=== PATIENT | female | born 1975 | race Caucasian/White ===

== ENCOUNTER 2023-09-09 09:55 | Emergency (ER) | payer OTHER, SELFPAY ==
[2023-09-09 10:01] VITALS: BP 125/71; PULSE 71; RESP 16; TEMP 36.6; O2SAT 97; BMI 31.6
[2023-09-09 10:09] VITALS: O2SAT 98
--- NOTE | 2023-09-09 10:28 | ED.GENADUL1 ---
HPI - General Adult General Chief complaint: Allergic Reaction Stated complaint: ALLERGIES Time Seen by Provider: 09/09/23 10:18 Source: patient Mode of arrival: ambulance History of Present Illness HPI narrative: This patient's here were she describes a burning irritating type feeling in her upper airway in the evening. She says she's been going through that off-and-on for years. She attributed to possibly to the foul odor of cats underneath her house. The does have a smoke detector and he did not smell anything or determine anything and there is no other foreign body or odors in the house that he could tell. She says she went outside and when squad picked her up her symptoms went away. She did not take any steroids or Benadryl. She did not have any swelling of her lips. She had no generalized pruritus or erythema. Not had any chest pain. Related Data Home Medications Medication Instructions Recorded Confirmed fluoxetine 20 mg capsule 20 mg PO QAM 09/09/23 09/09/23 methylphenidate HCl 10 mg biphasic 10 mg PO DAILY 09/09/23 09/09/23 30-70 capsule,extended release trazodone 50 mg tablet 50 mg PO QPM 09/09/23 09/09/23 Allergies Allergy/AdvReac Type Severity Reaction Status Date / Time No Known Drug Allergies Allergy Verified 09/09/23 10:05 Exam Narrative Exam Narrative: awake alert vital signs are stable pulse oximetry is good at ninety-eight percent on room air there is no airway distress stridor coughing are all negative. On overall constipation or skin is warm and dry biopsy memories are moist and pink. She doesn't have any central cyanosis. Her voice is normal deglutition is normal there is no runny nose and cough or congestion. Her lungs are completely clear with no wheeze rales rhonchi. Upper ENT examination shows the tongue and palate the uvula. Mucous membranes the mouth and oral cavity be completely normal. He has no conjunctivitis. There is no facial swelling. No dental pain. Constitutional Vital Signs, click to edit/add: Last Vital Signs Temp 97.9 F 09/09/23 10:01 Pulse 71 09/09/23 10:01 Resp 16 09/09/23 10:01 BP 125/71 09/09/23 10:01 Pulse Ox 98 09/09/23 10:09 O2 Del Method Room Air 09/09/23 10:09 Course Vital Signs Vital signs: Vital Signs Temperature 97.9 F 09/09/23 10:01 Pulse Rate 71 09/09/23 10:01 Respiratory Rate 16 09/09/23 10:01 Blood Pressure 125/71 09/09/23 10:01 Pulse Oximetry 97 09/09/23 10:01 Oxygen Delivery Method Room Air 09/09/23 10:01 Temperature 97.9 F 09/09/23 10:01 Pulse Rate 71 09/09/23 10:01 Respiratory Rate 16 09/09/23 10:01 Blood Pressure 125/71 09/09/23 10:01 Pulse Oximetry 98 09/09/23 10:09 Oxygen Delivery Method Room Air 09/09/23 10:09 Medical Decision Making MDM Narrative Medical decision making narrative: her symptoms today are recurrent and self-limited with no other stigmata of ALLERGIC reactions. He do not have a specific explanation for her symptoms. She did ask about sleep apnea but I don't believe today's symptoms are consistent with that however she should have investigated by her primary care doctor for repeat remains a concern. Discharge Plan Discharge Chief Complaint: Allergic Reaction Clinical Impression: Airway hyperreactivity Patient Disposition: Home, Self-Care Time of Disposition Decision: 10:31 Prescriptions / Home Meds: No Action trazodone 50 mg tablet 50 mg PO QPM methylphenidate HCl 10 mg capsule, ER biphasic 30-70 10 mg PO DAILY fluoxetine 20 mg capsule 20 mg PO QAM Stand Alone Forms: Portal Instructions Referrals: Physician,Non-Staff, MD [Primary Care Provider] - 1 week
== END 2023-09-09 10:38 | disposition home or self-care (01) ==
PROVIDERS: Emergency Provider Emergency Medicine Emergency Medical Services
DX: J45.909 Unspecified asthma, uncomplicated (principal)
CPT/HCPCS: 99283

== ENCOUNTER 2023-09-26 12:06 | Emergency (ER) | payer OTHER, SELFPAY ==
[2023-09-26 12:10] VITALS: BP 132/81; PULSE 73; RESP 18; TEMP 36.7; O2SAT 100; BMI 35.6
--- OUTSIDE RECORDS SUMMARY | 2023-09-26 12:15 | XMS_ITS | CCD ---
Author Name Unknown Address [address] [place] [address] Organization [facility] Care Team Providers Care Loom Cleaner Name Role Phone ABEL HERNANDEZ Admitting Unavailable ABEL HERNANDEZ Attending Unavailable ABEL HERNANDEZ Surgeon Unavailable [facility] Procedure Practitioner Unavailab KAYLA Lanier Primary Care Unavailable KAYLA STRINGER Referring Unavailable MAGDA SIN Surgeon Unavailable NH Procedure Practitioner Unavailab Eda Garvin Unavailable JOSE GRISSOM Admitting Unavailable JOSE GRISSOM Attending Unavailable DR MARY NONE LISTED Primary Care Unavaila JOSE Graham Consulting Unavailable LUIZA MYERS Consulting Unavailable Emani Saavedra Unavailable Laine Salazar Unavailable Bunny HUTCHINSON, [facility] Primary Care Provider Allergies Allergy Classification Reported Allergen(s) Allergy Type Date of Onset Reaction(s) Facility (4 sources) diphenhydrAMINE Drug Allergy thought she was dying [employer] Other (1 source) LORazepam Drug Allergy 05-17-20 Other (See Comments) [facility] Work Phone: Medications Current Medications Medication Drug Class(es) Dates Sig (Normalized) Sig (Original) ALPRAZolam 0.25 mg oral tablet (3 sources) Benzodiazepine Start: 08-07-2023 End: 08-06-2024 take 1 tablet by mouth twice daily as needed for anxiety ALPRAZolam (XANAX) 0.25 mg tablet Indications: Adjustment disorder with anxiety Take 1 tablet (0.25 mg total) by mouth 2 (two) times a day as needed for anxiety. 10 tablet 0 08/07/2023 08/06/2024 Active amoxicillin 875 mg / clavulanate 125 mg oral tablet (1 source) Penicillin-class Antibacterial Start: 08-09-2023 take 1 tablet by mouth every twelve hours Amoxicillin-Pot Clavulanate 875-125 MG 1 tablet Orally every 12 hrs for 10 days Aug, Active cloNIDine hydrochloride 0.1 mg oral tablet (2 sources) Central alpha-2 Adrenergic Agonist cloNIDine HCl 0.1 MG Oral for 30 Days Active FLUoxetine 20 mg oral capsule (4 sources) Serotonin Reuptake Inhibitor Start: 08-07-2023 take 1 capsule by mouth in the morning FLUoxetine (PROzac) 20 mg capsule Indications: MDD (major depressive disorder), recurrent, severe, with psychosis (CMS-HCC) Take 1 capsule (20 mg total) by mouth in the morning. 90 capsule 1 08/07/2023 Active 30/70 release 24 hr methylphenidate hydrochloride 10 mg extended release oral capsule (5 sources) Central Nervous System Stimulant Start: 08-21-2023 take 1 capsule by mouth once daily methylphenidate CD (METADATE CD) 10 mg CR capsule Indications: ADHD (attention deficit hyperactivity disorder), inattentive type Take 1 capsule (10 mg total) by mouth daily. Max Daily Amount: 10 mg 30 capsule 0 08/21/2023 Active Ritalin Active traZODone hydrochloride 50 mg oral tablet (5 sources) Serotonin Reuptake Inhibitor Start: 07-11-2023 take 1 tablet by mouth once daily as needed for sleep traZODone (DESYREL) 50 mg tablet Take 1 tablet (50 mg total) by mouth nightly as needed for sleep. 90 tablet 1 07/11/2023 Active traZODone HCl Ac tive 24 hr venlafaxine 37.5 mg extended release oral capsule (7 sources) Serotonin and Norepinephrine Reuptake Inhibitor Start: 07-11-2023 take 1 capsule by mouth once daily venlafaxine XR (EFFEXOR XR) 37.5 mg 24 hr capsule Indications: Major depressive disorder, recurrent episode, moderate (CMS-HCC) Take 1 capsule (37.5 mg total) by mouth once daily. 90 capsule 1 07/11/2023 Active Effexor Active Completed/Discontinued Medications Medication Drug Class(es) Dates Sig (Normalized) Sig (Original) [id number] 200 actuat albuterol 0.09 mg/actuat metered dose inhaler (4 sources) beta2-Adrenergic Agonist Start: 08-16-2016 take 2 puff(s) by inhalation every six hours as needed Ventolin HFA 108 (90 Base) MCG/ACT 2 puffs as needed Inhalation every 6h prn Aug, Not-Taking cephalexin 500 mg oral capsule (4 sources) Cephalosporin Antibacterial Start: 12-13-2014 take 1 capsule by mouth every twelve hours Cephalexin 500 mg 1 capsule Orally Twice a day for 7 days Dec, Not-Taking fluticasone propionate 0.05 mg/actuat metered dose nasal spray (2 sources) Corticosteroid Start: 08-08-2023 take 1 spray(s) nasal route once daily Fluticasone Propionate 50 MCG/ACT 1 spray in each nostril Nasally Once a day for 14 Aug, Not-Taking LORazepam (4 sources) Benzodiazepine Ativan Not-Taking methylPREDNISolone 4 mg oral tablet (4 sources) Corticosteroid Start: 08-16-2016 Medrol 4 MG as directed Orally Aug, Not-Taking predniSONE 20 mg oral tablet (2 sources) Start: 08-08-2023 predniSONE 20 MG as directed Orally Take 3 tablets by mouth once daily for the first 3 days then 2 tablets by mouth once daily for 3 days then 1 tablet by mouth once daily for 3 days then take a half tablet by mouth once dialy for 2 days. for 11 days Aug, Not-Taking Vitamins Plus (4 sources) Vitamins Plus Not-Taking Rochepin 1 Gram (1 source) Start: 08-09-2023 Rochepin 1 Gram Aug, 1 g Problems Active Problems Problem Classification Problem Date Documented Date Episodic/Chronic Anxiety disorders (2 sources) Anxiety disorder, unspecified; Translations: [Posttraumatic stress disorder] Onset: 05-29-2020 05-29-2020 Chronic Attention-deficit, conduct, and disruptive behavior disorders (1 source) Attention deficit hyperactivity disorder, predominantly inattentive type; Translations: [Attention-deficit hyperactivity disorder, predominantly inattentive type] Onset: 07-06-2017 07-06-2017 Chronic Blindness and vision defects (1 source) Other visual disturbances; Translations: [OTHER VISUAL DISTURBANCES] Onset: 08-16-2022 Episodic E Codes: Natural/environment (1 source) Bitten by dog, initial encounter Episodic Mood disorders (1 source) Recurrent major depressive episodes, severe, with psychosis ; Translations: [Major depressive disorder, recurrent, severe with psychotic symptoms] Onset: 07-06-2017 11-26-2021 Chronic Other eye disorders (3 sources) Ocular pain, left eye; Translations: [OCULAR PAIN LEFT EYE] Onset: 08-12-2022 Episodic Other skin disorders (1 source) Rash and other nonspecific skin eruption Episodic Other upper respiratory infections (2 sources) Acute upper respiratory infection, unspecified; Translations: [Acute pharyngitis, unspecified] Episodic Otitis media and related conditions (1 source) Otitis media, unspecified, left ear; Translations: [OTITIS MEDIA UNSPECIFIED LEFT EAR] Onset: 08-16-2022 Episodic Residual codes; unclassified (1 source) Acquired absence of both cervix and uterus; Translations: [ACQUIRED ABSENCE BOTH CERVIX AND UTERUS] Onset: 08-16-2022 Episodic Schizophrenia and other psychotic disorders (1 source) Psychotic disorder; Translations: [Unspecified psychosis not due to a substance or known physiological condition] Onset: 01-06-2022 01-06-2022 Chronic Unclassified (1 source) Contact with and (suspected) exposure to covid-19; Translations: [Contact with and (suspected) exposure to covid-19] Past or Other Problems Problem Classification Problem Date Documented Da te Episodic/Chronic Adjustment disorders (1 source) Adjustment disorder with anxious mood; Translations: [Adjustment disorder with anxiety] Onset: 12-17-2019 Resolved: 02-18-2021 02-18-2021 Chronic Suicide and intentional self-inflicted injury (1 source) Suicidal thoughts; Translations: [Suicidal ideations] Onset: 01-06-2022 01-06-2022 Episodic Unclassified (3 sources) Contact with and (suspected) exposure to covid-19 Z20.822 Onset: 05-10-2022 Resolved: 05-10-2022 Unclassified (3 sources) Exposure to acute respiratory syndrome coronavirus 2; Translations: [Contact with and (suspected) exposure to covid-19] Viral infection (1 source) Disease caused by 2019-nCoV; Translations: [COVID-19] Onset: 07-16-2021 Resolved: 09-08-2021 09-08-2021 Episodic Viral infection (1 source) COVID-19 Onset: 05-10-2022 Resolved: 05-10-2022 Results Test Name Value Interpretation Reference Range Facil ity COVID + FLU Quick Testingon 12-05-2023 SARS-CoV-2 (COVID-19) RNA ANTON+probe Ql (Unsp spec) Negative [employer] Other COVID + FLU Quick Testing Negative [employer] Other Quick Strepon 08-08-2023 S. pyogenes Org specific cx Ql (Throat) Negative [employer] Other Quick Strep [employer] Other COVID Quick Testingon 2022 Result Negative [employer] Other SARS-CoV-2 (COVID-19) RNA NA A+probe Ql (Resp)on 05-12-2023 SARS-CoV-2 (COVID-19) RNA ANTON+probe Ql (Unsp spec) Negative [employer] Other CT HEAD WO CONon 08-12-2022 CT HEAD WO CON INDICATION: 47 years old; Female. [Pressure with decreased vision for 2 days. TECHNIQUE: CT Head (ax/cor/sag reformats). Ionizing radiation dose reduced via iterative reconstruction/FBP blend and body size kV/mA adjustment. Comparison: CT angiogram of the head dated 06/15/2016. FINDINGS: POSTOPERATIVE CHANGES: None. BRAIN PARENCHYMA: No hemorrhage, mass or acute infarct. Normal barrow/white differentiation. VENTRICLES/EXTRA-AXIA L SPACES: Normal for patient's age. SINUSES/MASTOIDS: The visualized sinuses are clear. Mastoid air cells are clear. MSK: No displaced or depressed calvarial fracture is noted. OTHER: No hyperdense intraluminal thrombus is seen. IMPRESSION: 1. No acute intracranial abnormality. No hemorrhage or mass effect. This study does not include the orbits. Electronically authenticated by: LUIZA MYERS Date: 2022-08-12 03:15 Normal The [facility] SARS-CoV-2 (COVID-19) RNA NA A+probe Ql (Resp)on 05-10-2022 SARS-CoV-2 (COVID-19) RNA ANTON+probe Ql (Unsp spec) Positive [employer] Other Operative Reporton 1 Operative Report MR#: [id number] S [facility] Pt. Name: Marianna Stiles Room #: 0C Discharge Date: Birthdate: 1975 OPERATIVE REPORT DATE OF SURGERY: 09/09/2020 SURGEON: Abel Hernandez M.D. PREOPERATIVE DIAGNOSIS: Carpal tunnel syndrome, right hand. POSTOPERATIVE DIAGNOSIS: Carpal tunnel syndrome, right hand. PROCEDURE: Carpal tunnel release, right hand. SURGEON: Abel Hernandez M.D. FELT HAT STEAMER: Chapito Pelayo MD ANESTHESIA: MAC. INDICATION FOR SURGERY: The patient is a 45-year-old female, whom we saw in our [facility] with complaints of night pain and numbness in her right hand. This has been a worsening problem for her despite nonoperative means of treatment. She was brought to the operating room today for that purpose. The risks and benefits were explained prior to surgery and with good understanding, it is agreed to proceed. NARRATION: The patient was brought to the operating room and placed on the table in the supine position. A tourniquet was placed around the proximal right arm. The right upper extremity was prepped and draped out in a sterile fashion. No antibiotics were utilized. To begin the procedure, after a standard time-out, she was sedated per the Anesthesia Service and the operative site was anesthetized with 1% lidocaine. The arm was exsanguinated with an Esmarch bandage and the tourniquet was inflated to 250 mmHg. Using a #15 blade, a 2.5 cm longitudinal incision was made on the palm between the thenar and hypothenar creases. As she has a thin skin lined, we incorporated into the distal end of our incision. Sharp dissection was carried out through the subcutaneous tissue. The superficial blood vessels were cauterized with the Bovie. Two Beverley rakes were used to retract the skin edges. The palmar fascia split in line with our skin incision. She has a fairly large palmaris brevis muscle that is split. This brought us down to the transverse carpal ligament. Where I could clearly see the ligament, it was opened up in a very gradual fashion using a knife blade working from distal to proximal. Switching over to a tenotomy scissor, we bluntly spread through the most distal end of the ligament until that was completely free. The proximal end was undermined and split sharply with a scissor. I could use the tip of the scissor to palpate the release to make sure that it was complete. Once satisfied with that, the median nerve was bluntly dissected out and there was no gross abnormality. The wound was irrigated with normal saline solution and the skin was closed with some 5-0 Novafil suture. A sterile dressing of Xeroform gauze, 4x4 fluffs, Kerlix, and an Levi bandage was applied. The tourniquet was released and the drapes were removed. She was brought to the recovery area in stable condition, having tolerated the procedure well. Electronically Signed by: Abel Hernandez M.D. 09/10/2020 08:11 A Abel Hernandez M.D. Date Dict: 09/09/2020/10:59 A/Abel Hernandez M.D. Date Trans: 09/09/2020 11:12 Ortega/alex [id number] cc: Kayla Stringer NAnupPAnup [address] [facility] [address] Normal The [facility] POC GLUCOSE LABon 09-09-2020 Glucose [Mass/Vol] 100 mg/dL Normal 70-100 The [facility] Comment on above: Performed By: #### [id number] #### [facility] [address] *SARS-CoV-2 COVID-19on 09-05 SARS-CoV-2 (COVID-19) RNA ANTON+probe Ql (Unsp spec) Not detected Normal Not Detected The [facility] Comment on above: Order Comment: The Aptima SARS-CoV-2 ass ay is a nucleic acid amplification test intended for the qualitative detection of RNA from SARS-CoV-2 isolated and purified from nasopharyngeal (BOILERMAKER HELPER),oropharyngeal (OP), nasal swab, sputum, and bronchoalveolar lavage (BAL) specimens from patients with signs and symptoms of infection who are suspected of COVID-19. Results are for the identification of SARS-CoV-2 RNA. The SARS-CoV-2 RNA is generally detectable during the acute phase of infection. The Aptima SARS-CoV-2 Assay on the [place] [employer] [place] [employer] system is intended for use by laboratory personnel specifically instructed and trained in the operation of the [place] [employer] [place] [employer] system. The Aptima SARS-CoV-2 assay is only for use under the Food and Drug Administration Emergency Use Authorization. Testing is limited to laboratories certified under the Clinical Laboratory Improvement Amendments of 1988 (CLIA), 42 U.S.C. ???263a, to perform high complexity tests. Not Detected: Not detected does not preclude SARS-CoV-2 infection and should not be used as the sole basis for patient management decisions. Not detected results must be combined with clinical observations, patient history, and epidemiological information. Performed By: #### 3 [id number] #### [address] [facility] Vital Signs Date Time Vital Sign Value Performing Clinician Facility 08-09-2023 15:15-0500 Body height 160.02 cm Laine Salazar Other [employer] Other 08-09-2023 15:15-0500 Body mass index (BMI) [Ratio] 31.88 kg/m2 Laine Salazar Other [employer] Other 08-09-2023 15:15-0500 Body temperature 97.5 [degF] Laine Salazar Other [employer] Other 08-09-2023 15:15-0500 Body weight 81.65 kg Laine Salazar Other [employer] Other 08-09-2023 15:15-0500 Diastolic blood pressure 76 mm[Hg] Laine Salazar Other [employer] Other 08-09-2023 15:15-0500 Respiratory rate 18 /min Laine Sternmond Other [employer] Other 08-09-2023 15:15-0500 SaO2% (BldA) [Mass fraction] 97 % Laine Salazar Other [employer] Other 08-09-2023 15:15-0500 Systolic blood pressure 120 mm[Hg] Laine Salazar Other [employer] Other 08-08-2023 11:50-0500 Body height 160.02 cm Emani Keri Other [employer] Other 08-08-2023 11:50-0500 Body mass index (BMI) [Ratio] 32.27 kg/m2 Emani Keri Other [employer] Other 08-08-2023 11:50-0500 Body temperature 98.1 [degF] Emani Keri Other [employer] Other 08-08-2023 11:50-0500 Body weight 82.65 kg Emani Keri Other [employer] Other 08-08-2023 11:50-0500 Respiratory rate 18 /min Emani Keri Other [employer] Other 08-08-2023 11:50-0500 SaO2% (BldA) [Mass fraction] 99 % Emani Keri Other [employer] Other 05-12-2023 15:40-0400 Body height 160.02 cm Eda Law Other [employer] Other 05-12-2023 15:40-0400 Body mass index (BMI) [Ratio] 34.18 kg/m2 Eda Law Other [employer] Other 05-12-2023 15:40-0400 Body temperature 98.2 [degF] Eda Law Other [employer] Other 05-12-2023 15:40-0400 Body weight 87.54 kg Eda Law Other [employer] Other 05-12-2023 15:40-0400 Diastolic blood pressure 65 mm[Hg] Eda Law Other [employer] Other 05-12-2023 15:40-0400 Respiratory rate 18 /min Eda Law Other [employer] Other 05-12-2023 15:40-0400 SaO2% (BldA) [Mass fraction] 98 % Eda Law Other [employer] Other 05-12-2023 15:40-0400 Systolic blood pressure 119 mm[Hg] Eda Law Other [employer] Other 05-10-2022 13:40-0400 Body height 160.02 cm Eda Law Other [employer] Other 05-10-2022 13:40-0400 Body mass index (BMI) [Ratio] 30.11 kg/m2 Eda Law Other [employer] Other 05-10-2022 13:40-0400 Body temperature 98.9 [degF] Eda Law Other [employer] Other 05-10-2022 13:40-0400 Body weight 77.11 kg Eda Law Other [employer] Other 05-10-2022 13:40-0400 Respiratory rate 18 /min Eda Law Other [employer] Other 05-10-2022 13:40-0400 SaO2% (BldA) [Mass fraction] 96 % Eda Law Other [employer] Other Encounters Encounter Date Encounter Type Care Provider Facility Start: 09-19-2023 Telephone encounter Orders Sup port User Transcribe [facility] Division of [facility] - Sleep Disorders Comment on above: Sleep Lab (LISA Oshea) Start: 08-09-2023 End: 08-09-2023 ambulatory Laine Marie Other [employer] Other Start: 08-09-2023 Office outpatient vi sit 15 minutes Laine Marie [facility] Start: 08-08-2023 End: 08-08-2023 ambulatory Emani Keri Other [employer] Other Start: 08-08-2023 Office outpatient vi sit 15 minutes Emani Keri [facility] Start: 05-12-2023 End: 05-12-2023 ambulatory Eda Law Other [employer] Other Start: 05-12-2023 Office outpatient vi sit 25 minutes Eda Thanh [facility] Start: 08-12-2022 End: 08-12-2022 ambulatory JOSEDAHLIA GRISSOM Facility:[facility] Start: 05-10-2022 End: 05-10-2022 ambulatory Eda Law Other [employer] Other Start: 05-10-2022 Office outpatient vi sit 25 minutes Eda Thanh [facility] Start: 09-09-2020 End: 09-10-2020 ambulatory ABEL SKIE Facility:[facility] Procedures Date Procedure Procedure Detail Performing Clinician Start: 09-09-2020 ANESTH LOWER ARM SURGERY MAGDA ALTENHOF Start: 09-09-2020 Neuroplasty &/transp os median nrv carpal nery HERNANDEZ Plan of Treatment Date Care Activity Detail Author Start: 04-22-2024 Adult BMI Screening Adult BMI Screening [facility] Start: 04-22-2024 Tobacco Screening Tobacco Screening [facility] Start: 05-05-2023 Influenza vaccination Influenza Vaccine [facility] Start: 2023 Administration of varicella zoster vaccine Zoster (Shingles) Vaccine (1 of 2) [facility] Start: 1992 DTaP,Tdap and Td Vaccines (1 - Tdap) DTaP,Tdap and Td Vaccines (1 - Tdap) [facility] Start: 1991 Adult BMI Follow Up Plan Adult BMI Follow Up Plan [facility] Start: 1985 Depression Screening Depression Screening [facility] Immunizations Immunization Date Immunization Notes Care Provider Fa cili 06-13-2019 influenza virus vaccine, unspecified formulation Orders Transcribe [facility] 12-13-2014 tetanus toxoid, reduced diphtheria toxoid, and acellular pertussis vaccine, adsorbed Eda Law Other [employer] Other Payers Date Payer Category Payer Private Health Insurance AECHARISSE LONGORIA POS II [id number] 2015-Present [phone] [address] [place] [address] [id number] 2006 Private Health Insurance [id number] 1975 Unknown [id number] 1975 Unknown [id number] 1961 Private Health Insurance [id number] Social History Date Type Detail Facility Start: 09-15-2020 End: 04-22-2023 Sex Assigned At [employer] Other Start: 03-17-2018 Tobacco smoking status NHIS Ex-smoker [facility] History of tobacco use Current smoker [facility] Start: 03-17-2018 Tobacco use and exposure Smokeless tobacco non-user [facility] Start: 04-22-2023 Alcohol intake Ex-drinker (finding) [facility] Start: 09-15-2020 End: 04-22-2023 History of Social function [facility] Housing Instability Unknown [facility] Start: 03-17-2018 Tobacco Comment [facility] Start: 03-17-2018 Alcohol Comment [facility] Start: 1975 Sex Assigned At Female [facility] Start: 05-29-2020 Gender identity Identifies as female gender (finding) [facility] Start: 05-29-2020 Sexual orientation Heterosexual (finding) [facility] Note 09-19-2023 Telephone Encounter - Carole Amado - 09/19/2023 4:33 PM EST Note Date & Type Note Facility 09-19-2023 Miscellaneous Notes Formattin g of this note might be different from the original. 09/19 pt's called to schedule Advised we do not have order or notes. Gave him our fax number. documented in this encounter [facility] Telephone encounter Note 09-19-2023 Telephone Encounter - Carole Amado - 09/19/2023 4:33 PM EST Note Date & Type Note Facility 09-19-2023 Telephone encount er Note 09/19 pt's called to schedule Advised we do not have order or notes. Gave him our fax number. [facility] Evaluation note 08-09-2023 Note Date & Type Note Facility 08-09-2023 Evaluation note Encounter Date Diagnosis Assessment Notes Aug, Dog bite, initial encounter (ICD-10 - W54.0XXA) Dog bite home care material was printed Drink plenty fluids, get plenty of rest. Keep the wound clean and dry. Apply antibiotic ointment to the wound daily. Apply a dressing or Band-Aid to the wound daily. Take the amoxicillin with clavulanate as prescribed until gone starting tomorrow. Take Tylenol or Motrin as needed for aches pains or fevers. Go to the ER for worsening symptoms or concerns. Patient verbalizes great concern over possible development of sepsis. She states her younger brother of sepsis at 30 years old. Patient will be given an injection of Rocephin today and then started on amoxicillin tomorrow with instructions to follow-up for any further concerns. [employer] Other Evaluation note 08-08-2023 Note Date & Type Note Facility 08-08-2023 Evaluation note Encounter Date Diagnosis Assessment Notes Aug, Suspected COVID-19 virus infection (ICD-10 - Z20.822) Aug, Viral upper respiratory illness (ICD-10 - J06.9) You wer eseen here today for your complaints of cough, congestion, headache, sore throat, runny nose and body aches. You denies fevers, chills, nausea, vomitng or diarrhea. You were tested for covid, flu and strep. Your tests were all negative, Your illness is not suspected to be bacterial. You do not need antibiotics at this time. You are being prescribed flonase nasal spray to use as directed fo rhte next 2 weeks. You reports dry, cracked, itching feet of chronic nature that requires steroids at times. You are requesting a steroid for the rash on your feet. You are being prescribed a steroid medication fo rthe rash, you will need to take it as directed. You need to follow up with your primary care provider or hooker laster as discussed for your feet. Aug, Sore throat (ICD-10 - J02.9) Aug, Rash of both feet (ICD-10 - R21) [employer] Other Evaluation note 05-12-2023 Note Date & Type Note Facility 05-12-2023 Evaluation note Encounter Date Diagnosis Assessment Notes May, Exposure to COVID-19 virus (ICD-10 - Z20.822) Advised patient that COVID PCR test was negative today. Because positive at home, advised that this could change. Encouraged use of at home test in 24 hours. Recommend patient to stay home until fever free for 24 hours. Supportive care as directed, increase fluids and rest, Tylenol/Motrin as directed, OTC cough/cold remedies as directed on packaging, cool mist humidifier, throat lozenges. Discussed infection control practices such as good hand washing and mask wearing. Patient to follow up with PCP if symptoms persist or worsen despite treatment. Immediate eval for SOB, difficulty breathing, chest pain, fevers that do not break with antipyretic or any other concerning symptoms as reviewed on patient education handout. Patient verbalizes understanding and is agreeable to treatment plan. Patient left in stable condition [facility] [employer] Other Evaluation note 05-10-2022 Note Date & Type Note Facility 05-10-2022 Evaluation note Encounter Date Diagnosis Assessment Notes May, Contact with and (suspected) exposure to covid-19 (ICD-10 - Z20.822) May, COVID-19 (ICD-10 - U07.1) COVID PCR test performed in office today. Advised patient that test was positive. Instructed patient to isolate per CDC guidelines for 5 days from symptom onset, mask 5 days following. May return to work/activities outside home after isolation period as long as symptoms are improving and has been afebrile for 24 hours without use of antipyretic. Advised patient that treatment of COVID is with viral supportive care, OTC cold medications as directed, Tylenol/Motrin as needed for body aches/fever. Increase fluids and rest. Encouraged use of cool mist humidifier. Follow-up with PCP to advise of positive result and further management. Immediate eval for SOB, difficulty, chest pain, fevers that do not break with antipyretic or any other concerning symptoms as reviewed on patient education handout. Patient verbalizes understanding and is agreeable to treatment plan. Patient left in stable condition [facility] [employer] Other History general Narrative - Reported Note Date & Type Note Facility History general Narrative - Reported Type Medical History Anxiety and depression Medical History adhd Surgical History hysterectomy Hospitalization History see above surgical histo ry [facility] [employer] Other Instructions Note Date & Type Note Facility Instructions Not on filedocumented in this en counter [facility] Summary Purpose Family History No Family History Records FoundNo Family History Records Found Advance Directives No Advanced Directives Records FoundNo Advanced Directives Records Found Additional Source Comments INFORMATION SOURCE (unrecogn ized section and content) DATE CREATED AUTHOR 08/27/2021 [facility] DATE CREATED AUTHOR AUTHOR'S ORGANIZ ATION 08/16/2022 [facility] REASON FOR VISIT (unrecogniz ed section and content) Reason Onset Date Comments Sleep Lab 09/19/2023 SCHEDULING Care Teams (unrecognized sec tion and content) Loom Cleaner Relationship Specialty Start Date End Date Shaikh Hollis MD [address] [place] [address] PCP - General Internal Medicine 08/11/22 FOR RECORDS PERTAINING TO PATIENTS WHO ARE OR HAVE BEEN ENROLLED IN A CHEMICAL DEPENDENCY/SUBSTANCEABUSE PROGRAM, SOME INFORMATION MAY BE OMITTED. This clinical summary was aggregated from multiple sources. Caution should be exercised in using it in the provision of clinical care. This summary normalizes information from multiple sources, and as a consequence, information in this document may materially change the coding, format and clinical context of patient data. In addition, data may be omitted in some cases. CLINICAL DECISIONS SHOULD BE BASED ON THE PRIMARY CLINICAL RECORDS. [employer] [facility]. provides no warranty or guarantee of the accuracy or completeness of information in this document.
--- NOTE | 2023-09-26 12:54 | CT_ITS ---
The [address] [address] Patient Name: BILLY GIBSON MRN: [id number] date: 1975 Sex: F Assigned Patient Location: ER Current Patient Location: .[facility] Accession/Order Number: [id number] Exam Date: 09/26/2023 13:15 Report Date: 09/26/2023 14:01 At the request of: ELEN JOHNSON Procedure: CT facial bones w con CT FACE WITH CONTRAST: 09/26/2023 1:15 PM EST Clinical Data: left facial pain.. Left eye pain. Visual trouble in left thigh. Comparison: No previous Contrast enhanced helically acquired data. No acute fracture or dislocation. No air-fluid levels in the paranasal sinuses. Moderate mucosal disease in the nares, left greater than right. Areas of modest mucosal thickening in the ethmoids. No mastoid effusion. No soft tissue prominence or fluid collection in the left malar or periorbital regions. The orbital globes appear symmetric and unremarkable. Lacrimal glands are symmetric and unremarkable. No extraconal mass. The muscle cones are symmetric and unremarkable. There is no intraconal mass. The intraorbital optic nerves and their sheaths are unremarkable. The orbital vasculature appears symmetric. No distinct evidence of a sellar or suprasellar mass. The cavernous sinuses appear symmetric. The other included intracranial contents appear grossly unremarkable at helical acquisition. There is artifact from dental hardware. No moderate or significant periodontal disease. No fluid collections buccal or lingual to the maxillary alveolar ridge or the mandible. No odontogenic phlegmonous cellulitis is apparent. The IJVs remain patent. Carotid bifurcations are patent. CT/CT facial bones w con IMPRESSION: 1. Some mucosal disease in the nasal cavity and ethmoids. All CT scans at this facility use dose modulation, iterative reconstruction, and/or weight based dosing when appropriate to reduce radiation dose to as low as reasonably achievable. Electronically authenticated by: CAMERON RIOS Date: 09/26/2023 14:01
--- NOTE | 2023-09-26 12:56 | ED_ITS ---
HPI - General Adult General Chief complaint: Extremity Problem, Nontraumatic Stated complaint: LEFT FACE PAIN/CAN'T SEE Time Seen by Provider: 09/26/23 12:11 Source: patient Mode of arrival: walk-in Limitations: no limitations History of Present Illness HPI narrative: Patient presents with left facial and left eye pain. She said that 4 days ago she developed pain along the left nostril - burning and had associated nasal congestion. The pain then migrated into the left orbit and the left upper cheek and lower forehead. She denied any associated dental pain. She said that her vision in the left eye became blurred - she wears eye glasses and has not called Dr Pizarro's office regarding her visual changes. She had some left over prednisone, Flonase and zithromax that she started taking 2 days ago. No improvement so she had her friend give her a ride to the ED for evaluation. Related Data Home Medications Medication Instructions Recorded Confirmed fluoxetine 20 mg capsule 20 mg PO QAM 09/09/23 09/26/23 methylphenidate HCl 10 mg biphasic 10 mg PO DAILY 09/09/23 09/26/23 30-70 capsule,extended release trazodone 50 mg tablet 50 mg PO QPM 09/09/23 09/26/23 alprazolam 0.25 mg tablet 0.25 mg PO DAILY PRN anxiety 09/26/23 09/26/23 venlafaxine 37.5 mg 37.5 mg PO .daily 09/26/23 09/26/23 capsule,extended release 24 hr Previous Rx's Medication Instructions Recorded doxycycline hyclate 100 mg capsule 100 mg PO BID 10 days #20 caps 09/26/23 ketorolac 10 mg tablet 10 mg PO Q8H PRN pain #14 tabs 09/26/23 tobramycin 0.3 % eye drops 1 drp ophthalmic (eye) TID 7 days 09/26/23 #5 mL Allergies Allergy/AdvReac Type Severity Reaction Status Date / Time No Known Drug Allergies Allergy Verified 09/09/23 10:05 [facility] Social History Smoking status: Current every day smoker Exam Narrative Exam Narrative: Nurses notes and vital signs reviewed and patient is not hypoxic. afebrile General: Well-appearing and in no apparent distress. Skin: Warm, dry, no pallor noted. No facial rash. Head: Normocephalic, atraumatic. Neck: Supple, non-tender. No cervical lymphadenopathy. Eye: Pupils are equal, round and EOMI. No scleral icterus. No conjunctivitis to either eye. Left eye with normal EOM, intact pupillary changes and accomm odation, no blepharitis or discharge. Ears, Nose, Mouth, and Throat: EACs are clear, right TM normal, left TM slightly bulging with erythema but no injection, no posterior oropharynx erythema or nasal mucosal hypertrophy, uvula is mid-line. Oral mucosa is moist. No facial asymmetry, swelling, erythema or abscess noted. She is markedly tender throughout the left forehead, orbit and upper cheek but no periorbital or orbital cellulitis is noted. Cardiovascular: Regular Rate and Rhythm without murmur, gallop or rub. Respiratory: No accessory muscle use or respiratory distress. Lungs are clear to auscultation, no wheezing, rales or rhonchi Musculoskeletal: normal ROM, no calf or popliteal tenderness, no lower extremity edema/swelling GI: Abdomen is soft, non-distended. Normal bowel sounds. No masses appreciated. No tenderness to palpation. No rebound, guarding, or rigidity noted. Neurological: A&O x4. No cranial nerve dysfunction observed. No truncal ataxia. Moves all extremities. Sensation intact. Psychiatric: Cooperative and interactive. Normal mood and affect. Constitutional Vital Signs, click to edit/add: Last Vital Signs Temp 98.1 F 09/26/23 12:10 Pulse 73 09/26/23 12:10 Resp 18 09/26/23 12:10 BP 132/81 09/26/23 12:10 Pulse Ox 100 09/26/23 12:10 Course Vital Signs Vital signs: Vital Signs Temperature 98.1 F 09/26/23 12:10 Pulse Rate 73 09/26/23 12:10 Respiratory Rate 18 09/26/23 12:10 Blood Pressure 132/81 09/26/23 12:10 Pulse Oximetry 100 09/26/23 12:10 Temperature 98.1 F 09/26/23 12:10 Pulse Rate 73 09/26/23 12:10 Respiratory Rate 18 09/26/23 12:10 Blood Pressure 132/81 09/26/23 12:10 Pulse Oximetry 100 09/26/23 12:10 Medical Decision Making MDM Narrative Medical decision making narrative: tetracaine applied to the patient's left eye. Peripheral IV established and blood drawn and sent for testing. CT facial bones with IVC obtained. She was given IV Toradol. Normal CBC and normal BMP. CT facial = left sinus changes only, no other w orrisome pathology. Patient informed of findings with on the phone at her request. We discussed diagnosis and plane for treatment. Patient discharged home with prescriptions for doxycycline, toradol and tobramycin ophth drops. PCP follow up and follow up with eye physician recommended. . Lab Data Lab results reviewed: Yes I reviewed the patient's lab results Labs: Lab Results 09/26/23 Range/Units 13:13 WBC 5.9 (4.0-11.0) 10^3/uL RBC 4.72 (4.20-5.40) 10^6/uL Hgb 13.7 (12.0-16.0) g/dL Hct 41.9 (36.0-48.0) % MCV 88.8 (81.0-99.0) fL MCH 29.0 (26.7-34.0) pg MCHC 32.7 (29.9-35.2) g/dL RDW 12.7 (11.0-15.0) % Plt Count 279 (150-450) 10^3/uL MPV 10.1 (9.5-13.5) fL Neut % (Auto) 56.6 (43.0-75.0) % Lymph % (Auto) 30.9 (20.5-60.0) % [place] % (Auto) 8.4 (1.7-12.0) % Eos % (Auto) 3.2 (0.9-7.0) % Baso % (Auto) 0.7 (0.2-2.0) % Neut # (Auto) 3.4 (1.4-6.5) 10^3/uL Lymph # (Auto) 1.8 (1.2-3.8) 10^3/uL [place] # (Auto) 0.5 (0.3-0.8) 10^3/uL Eos # (Auto) 0.2 (0.0-0.7) 10^3/uL Baso # (Auto) 0.0 (0.0-0.1) 10^3/uL Abs Immat Gran (auto) 0.01 (0.00-0.03) 10^3/uL Imm/Tot Granulo (auto) 0.2 (0.0-0.5) % Sodium 141 (136-145) mmol/L Potassium 4.0 (3.5-5.1) mmol/L Chloride 104 (98-107) mmol/L Carbon Dioxide 29.7 (21.0-32.0) mmol/L Anion Gap 11.3 BUN 13.0 (7.0-18.0) mg/dL Creatinine 0.90 (0.55-1.02) mg/dL Est GFR ( Amer) >60 (>=60) Est GFR (Non-Af Amer) >60 (>=60) BUN/Creatinine Ratio 14.4 Glucose 88 (74-106) mg/dL Calcium 8.8 (8.5-10.1) mg/dL Imaging Data ct facial: Radiologist's impression: ITS Impressions Facial Bones CT 09/26/23 12:54 IMPRESSION: 1. Some mucosal disease in the nasal cavity and ethmoids. All CT scans at this facility use dose modulation, iterative reconstruction, and/or weight based dosing when appropriate to reduce radiation dose to as low as reasonably achievable. Electronically authenticated by: CAMERON RIOS Date: 09/26/2023 14:01 Discharge Plan Discharge Chief Complaint: Extremity Problem, Nontraumatic Clinical Impression: Iritis, Sinusitis Patient Disposition: Home, Self-Care Time of Disposition Decision: 14:12 Prescriptions / Home Meds: New doxycycline hyclate 100 mg capsule 100 mg PO BID 10 Days Qty: 20 0RF ketorolac 10 mg tablet 10 mg PO Q8H PRN (Reason: pain) Qty: 14 0RF tobramycin 0.3 % drops 1 drp ophthalmic (eye) TID 7 Days Qty: 5 0RF Rx Instructions: left eye No Action trazodone 50 mg tablet 50 mg PO QPM methylphenidate HCl 10 mg capsule, ER biphasic 30-70 10 mg PO DAILY fluoxetine 20 mg capsule 20 mg PO QAM venlafaxine 37.5 mg capsule,extended release 24hr 37.5 mg PO .daily alprazolam 0.25 mg tablet 0.25 mg PO DAILY PRN (Reason: anxiety) Instructions: Sinusitis (ED), Iritis (ED) Stand Alone Forms: Portal Instructions Referrals: [facility] [Primary Care Provider] - 1 week CLAUDINE PIZARRO [Physician] - As soon as possible
[2023-09-26] MEDS: TETRACAINE HCL 0.5% OP SOL 80 DROP/4 ML BOTTLE OP (13:18)
[2023-09-26] MEDS: KETOROLAC TROMETHAMINE 30 MG/ML VIAL IVP (13:19)
[2023-09-26 13:26] LABS: Basophils Percent Auto 0.7 % (0.2-2.0); Eosinophils Absolute Auto 0.2 10^3/uL (0.0-0.7); Eosinophils Percent Auto 3.2 % (0.9-7.0); Hematocrit 41.9 % (36.0-48.0); Hemoglobin 13.7 g/dL (12.0-16.0); Immature Granulocytes Abs Auto 0.01 10^3/uL (0.00-0.03); Immature Granulocytes Pct Auto 0.2 % (0.0-0.5); Lymphocytes Absolute Auto 1.8 10^3/uL (1.2-3.8); Lymphocytes Percent Auto 30.9 % (20.5-60.0); Mean Corpuscular HGB Conc 32.7 g/dL (29.9-35.2); Mean Corpuscular Volume 88.8 fL (81.0-99.0); Mean Platelet Volume 10.1 fL (9.5-13.5); Monocytes Absolute Auto 0.5 10^3/uL (0.3-0.8); Monocytes Percent Auto 8.4 % (1.7-12.0); Neutrophils Absolute Auto 3.4 10^3/uL (1.4-6.5); Neutrophils Percent Auto 56.6 % (43.0-75.0); Platelet Count 279 10^3/uL (150-450); Red Blood Count 4.72 10^6/uL (4.20-5.40); Red Cell Distribution Width 12.7 % (11.0-15.0); White Blood Count 5.9 10^3/uL (4.0-11.0)
[2023-09-26 13:33] LABS: Anion Gap 11.3; BUN Creatinine Ratio 14.4; Calcium 8.8 mg/dL (8.5-10.1); Carbon Dioxide 29.7 mmol/L (21.0-32.0); Chloride 104 mmol/L (98-107); Estimated GFR (African America >60 (>=60); Estimated GFR (Non-African Ame >60 (>=60); Glucose 88 mg/dL (74-106); Sodium 141 mmol/L (136-145)
== END 2023-09-26 14:28 | disposition home or self-care (01) ==
PROVIDERS: Emergency Provider Emergency Medicine
DX: H20.9 Unspecified iridocyclitis (principal); J32.9 Chronic sinusitis, unspecified; Z79.899 Other long term (current) drug therapy; F17.210 Nicotine dependence, cigarettes, uncomplicated
CPT/HCPCS: 36415; 70487; 80048; 85025; 96374; 99285; J1885; Q9967

== ENCOUNTER 2025-05-13 19:17 | Emergency (ER) | payer OTHER, SELFPAY ==
--- OUTSIDE RECORDS SUMMARY | 2024-01-22 10:30 | XMS_ITS ---
Author Organization [facility] vices Address [address] [place], [place] [id number] Care Team Providers Care Injection Moulding Machine Operator Name Role Phone Milana Sandhu Primary Care Provider [phone] Tabatha Gonzalez Unavailable [phone] REASON FOR VISIT f/u Medications Medication SIG (Take, Route, Frequency, Duration) Notes Start Date End Date Status PROzac 20 MG 1 capsule Orally Once a day Active Fluticasone Propionate 50 MCG/ACT 1 spray in each nostril Nasal Once a day; Duration: 30 days Not-Taking Vitamin D not sure of OTC dose Active cloNIDine HCl 0.1 MG 1 tablet Orally Once a day Active Methylphenidate HCl ER (CD) 10 MG 2 capsules before breakfast in the morning Oral Once a day; Duration: 30 days Active Social History Sex Assigned At : Social History Observation Description Sex Assigned At Female Encounters Encounter Location Date Provider Diagnosis Main [address] [place], [place] [id number] 01/22/2024 Tabatha Gonzalez Plan Of Treatment No Information Progress Notes * Marianna STILES LDOB:[birth year] (50 yo F)Acc No.[id number]:01/22/2024 Medical Note Patient: Marianna WAGONER Provider: Adwoa Gonzalez MD :1975 A ge:48 Y S ex:Female Date:01/22/2024 Address:[address] [place] [address], [address], [id number] Pcp:Milana Sandhu Subjective: * Chief Complaints: * 1 . F/u. * Medical History: * Medications: T aking Vitamin D , Notes to Pharmacist: not sure of OTC dose, Taking cloNIDine HCl 0.1 MG Tablet 1 tablet Orally Once a day , Taking Methylphenidate HCl ER (CD) 10 MG Capsule Extended Release 2 capsules before breakfast in the morning Oral Once a day , Taking PROzac 20 MG Capsule 1 capsule Orally Once a day , Not-Taking/PRN Fluticasone Propionate 50 MCG/ACT Suspension 1 spray in each nostril Nasal Once a day Objective: * Vitals: Assessment: Plan: * Treatment: * Billing Information: * Visit Code: * Procedure Codes: * Electronic signature of Franklin Gonzalez MD on 05/13/2025 at 07:24 PM EDT Sign off status: Pending * Provider: Adwoa Gonzalez MD Date: 0 01/22/2024 Generated for Monica lambert/Angel/Jesenia on: 0 05/13/2025 07:24 PM EDT
--- OUTSIDE RECORDS SUMMARY | 2024-05-13 09:45 | XMS_ITS ---
Author Organization [facility] Address [address] [place], [place] [id number] Care Team Providers Care Car Dropper Name Role Phone Milana Sandhu Primary Care Provider Tabatha Gonzalez Unavailable [phone] REASON FOR VISIT discuss labs results Medications Medication SIG (Take, Route, Frequency, Duration) Notes Start Date End Date Status Vitamin D 25 MCG (1000 UT) 1 tablet Orally Once a day not sure of OTC dose Active ALPRAZolam 0.25 MG take 1 tablet by mouth twice a day if needed for anxiety Oral; Duration: 5 Days Active Pristiq 100 MG 1 tablet Orally Once a day Active Fluticasone Propionate 50 MCG/ACT 1 spray in each nostril Nasal Once a day; Duration: 30 days Not-Taking Social History Sex Assigned At : Social History Observation Description Sex Assigned At Female Encounters Encounter Location Date Provider Diagnosis Main [address] [place] [id number] 05/13/2024 Tabatha Gonzalez Plan Of Treatment No Information Progress Notes * Marianna STILES LDOB:[birth year] (50 yo F)Acc No.[id number]:05/13/2024 Medical Note Patient: Marianna WAGONER Provider: Adwoa Gonzalez MD :1975 A ge:49 Y S ex:Female Date:05/13/2024 Address:[address] [place] [address], [address], [id number] Pcp:Milana Sandhu Subjective: * Chief Complaints: * 1 . Discuss labs results. * Medical History: * Medications: T aking Pristiq 100 MG Tablet Extended Release 24 Hour 1 tablet Orally Once a day , Taking Vitamin D 25 MCG (1000 UT) Tablet 1 tablet Orally Once a day , Notes to Pharmacist: not sure of OTC dose, Taking ALPRAZolam 0.25 MG Tablet take 1 tablet by mouth twice a day if needed for anxiety Oral , Not-Taking/PRN Fluticasone Propionate 50 MCG/ACT Suspension 1 spray in each nostril Nasal Once a day Objective: * Vitals: Assessment: Plan: * Treatment: * Billing Information: * Visit Code: * Procedure Codes: * Electronic signature of Franklin Gonzalez MD on 05/13/2025 at 07:25 PM EDT Sign off status: Pending * Provider: Adwoa Gonzalez MD Date: 05/13/2024 Generated for Monica lambert/Angel/Jesenia on: 05/13/2025 07:25 PM EDT
--- OUTSIDE RECORDS SUMMARY | 2024-09-20 04:15 | XMS_ITS ---
Author Organization [facility] vices Address [address] [place], [place] [id number] Care Team Providers Care Glass Bulb Machine Adjuster Name Role Phone Milana Sandhu Primary Care Provider [phone] Esequiel Ernst [phone] REASON FOR VISIT tremors all over body Social History Sex Assigned At : Social History Observation Description Sex Assigned At Female Encounters Encounter Location Date Provider Diagnosis Main [address] [place] [id number] 09/20/2024 Esequiel Ernst Plan Of Treatment No Information Progress Notes * Marianna STILES LDOB:[birth year] (50 yo F)Acc No.[id number]:09/20/2024 Patient: Marianna WAGONER Provider: Kayla Ernst :1975 A ge:49 Y S ex:Female Date:09/20/2024 Address:[address] [place] [address], [address], [id number] Pcp:Milana Sandhu Subjective: * Chief Complaints: * 1 . Tremors all over body. * Medical History: Objective: * Vitals: Assessment: Plan: * Treatment: * Billing Information: * Visit Code: * Procedure Codes: * Electronic signature of IGOR Segundo on 05/13/2025 at 07:24 PM EDT Sign off status: Pending * Provider: Kayla Ernst Date: 0 09/20/2024 Generated for Monica lambert/Angel/Jesenia on: 0 05/13/2025 07:24 PM EDT
[2025-05-13] VITALS (10 sets, daily range): BP systolic 110–123; BP diastolic 62–70; PULSE 64–73; TEMP 36.7–37; O2SAT 97–100; BMI 33.7
--- OUTSIDE RECORDS SUMMARY | 2025-05-13 19:23 | XMS_ITS | Clinical Summary ---
Author Organization [facility] Address [address] [place] [address] Care Team Providers Care Project Facilitator Name Role Phone Unavailable Primary Care Provider Unavailabl e Allergies No known active allergies Medications traZODone (Desyrel) 50 MG tablet Take 50 mg by mouth Daily 1/2 tab Active FLUoxetine (PROzac) 20 MG capsule Take 20 mg by mouth Daily 1 capsule Active estradiol (Climara) 0.025 MG/24HRIndicati ons:Menopause,V asomotor symptoms due to menopause Place 1 patch over 7 days on the skin 1 (one) time per week 12 patch 3 12/09/2024 Active Active Problems Problem Noted Date Diagnosed Date Memory change 12/28/2023 Paresthesia 12/28/2023 Social History Tobacco Use Types Packs/Day Years Used Date Smoking Tobacco: Never Assessed Comments Unknown Sex and Gender Information Value Date Recorded Sex Assigned at Not on file Legal Sex Female 7:12 PM EDT Gender Identity Not on file Sexual Orientation Not on file Last Filed Vital Signs Vital Sign Reading Time Taken Comments Blood Pressure 116/84 12/09/2024 1:08 PM EDT Pulse 76 11/23/2023 5:59 AM EDT Temperature 35.9 C (96.6 F) 11/23/2023 5:59 AM EDT Respiratory Rate 16 11/23/2023 5:59 AM EDT Oxygen Saturation 100% 11/23/2023 5:59 AM EDT Inhaled Oxygen Concentration - - Weight 86.9 kg (191 lb 8 oz) 12/09/2024 1:08 PM EDT Height 163.2 cm (5' 4.25 ) 01/07/2023 12:00 PM E DT Body Mass Index 32.62 01/07/2023 12:00 PM EDT Plan of Treatment Not on file Insurance [address] [place] [address] [employer]
--- OUTSIDE RECORDS SUMMARY | 2025-05-13 19:23 | XMS_ITS | Patient Health Record ---
Author Organization [facility] [place] Address [address] [place] [address] Care Team Providers Care Inventory Control Associate Name Role Phone Syeda Everett Primary Care Provider [phone] Reason For Referral No Information Medications Medication SIG (Take, Route, Fr equency, Duration) Notes Start Date End Date Status LamISIL 250 MG 1 tablet Orally Once a day for 30 days 06/13/2019 Active predniSONE 20 MG 1 tablet Orally BID for 7 days Active Prozac 40 mg 1 tablet Oral Daily Active Ritalin 10 MG 1 tablet Orally Once Active traZODone HCl 50 MG 1 tablet at bedtime Orally Once a day Active Immunizations Vaccine Route Administration Date Status Comme nts Flu, Flucelvax (84252) 4 yrs and older, single-dose syringe (7372-8922) IM Intramuscular 06/13/2019 Administered Social History Tobacco Use: Social History Observation Description Date Details (start date - stop date) Never Smoker NA - NA Tobacco Use/Smoking Question Answer Notes Patient is a nonsmoker Alcohol Screen (Audit-C) Question Answer Notes Did you have a drink containing alcohol in the p ast year? No Points 0 Interpretation Negative Problems Problem Type SNOMED Code ICD Code Onset Dates Problem Status W/U Status Risk Notes Problem Chronic fatigue syndrome (92022996) Chronic fatigue (R53.82) Active confirmed Problem 71708203 Dysphagia, unspecified type (R13.10) Active confirmed Problem 039894938 Anxiety with depression (F41.8) Active confirmed Problem 7576496 Thyromegaly (E01.0) Active confirmed Plan Of Treatment No Information Insurance Providers Payer Name Payer Address Payer Phone Subscriber Number Group Number Insured Name Patient Relationship to Insured Coverage Start Date Coverage End Date [employer] [place] [address] [place] [address] [id number] Juan Stiles Spouse - patient is the spouse of the insured 9 Medical (General) History Medical History History ICD Code Anxiety/depression Insomnia Chronic foot rash (since 2008) Surgical History Surgery Date(Month/Year) hysterectomy
--- OUTSIDE RECORDS SUMMARY | 2025-05-13 19:24 | XMS_ITS | Encounter Summary ---
Author Organization [facility] Address [id number] [address] [place] [address] Care Team Providers Care Cementer Hand Name Role Phone Camille Corley APRN-EMPLOYMENT LAW SPECIALIST Primary Care Provi estefani Encounter Details Date Type Department Care Team (Late st Contact Info) Description 02/12/2025 Orders Only [facility] [address] [place] [address] [place] [phone] Julia Carrizales CMA Social History Tobacco Use Types Packs/Day Years Used Date Smoking Tobacco: Former Cigarettes 0.5 19.7 1 989 - 2005 Smokeless Tobacco: Never Comments:chews nicotine gum Alcohol Use Standard Drinks/Week Comments Not Currently 0 (1 standard drink = 0.6 oz pur e alcohol) occasionally Overall Financial Resource Strain (CARDIA) Answe r Date Recorded How hard is it for you to pa y for the very basics like food, housing, medical care, and heating? Not hard at all 11/19/2024 PHQ-2 Answer Date Recorded Total Score 15 02/12/2025 PRAPARE - Transportation Answer Date Re corded In the past 12 months, has l ack of transportation kept you from medical appointments or from getting medications? No 11/02 In the past 12 months, has l ack of transportation kept you from meetings, work, or from getting things needed for daily living? No 11/19/2024 Housing Instability Answer Date Recorde d Are you worried or concerned that in the next two months you may not have stable housing that you own, rent or stay in as a part of a household? No 11/19/2024 Childcare Answer Date Recorded Childcare Unknown 02/01/2019 Employment Answer Date Recorded Employment Unknown 02/01/2019 Hunger Screening Answer Date Recorded Within the past 12 months we worried whether our food would run out before we got money to buy more. Never True 02/12/2025 Within the past 12 months th e food we bought just didn't last and we didn't have money to get more. Never True 02/12/2025 Purpose - Life Answer Date Recorded Purpose and direction in life Unknown Comments No Sex and Gender Information Value Date Recorded Sex Assigned at Female 05/29/2020 3:52 PM EDT Legal Sex Female 11:24 AM EDT Gender Identity Female 05/29/2020 3:52 PM EDT Sexual Orientation Straight 05/29/2020 3: 52 PM EDT documented as of this encounter Plan of Treatment Upcoming Encounters Date Type Department Care Team (Latest Contact Info) Description 05/21/2025 3:40 PM EDT Office Visit [facility] Family [facility] [address] [place] [address] [phone] Camille Corley, BELT DRESSER-EMPLOYMENT LAW SPECIALIST [address] [facility] [address] [place] [address] 05/22/2025 12:30 PM EDT Appointment [facility] - Endoscopy Pre and Post OP [address] [facility] [place] [address] 05/27/2025 2:15 PM EDT Support [facility] [place] [address] [place] [phone] 06/02/2025 12:30 PM EDT Hospital Encounter [facility] - Endoscopy [address] [place] [address] Lauryn Evans MD [address] [facility] [place] [address] 06/02/2025 12:30 PM EDT - 06/02/2025 1:30 PM EDT Surgery [facility] - Endoscopy [address] [place] [address] Lauryn Evans MD [address] [facility] [address] [place] [address] ESOPHAGOGASTRODUODENOSCOPY DIAGNOSTIC [08735 (CPT )] 07/10/2025 3:15 PM EST Office Visit [facility] Pulmonary/Sleep Medicine [address] [place] [phone] Yvette Suh DO [address] [facility] [address] [place] [address] Scheduled Procedures Name Priority Associated Diagnoses Date/Ti me ESOPHAGOGASTRODUODENOSCOPY DIAGNOSTIC Chronic idiopathic constipation Epigastric pain (R10.13) GERD, unspecified (K21.9) 06/02/2025 12:30 PM EDT COLONOSCOPY DIAGNOSTIC / SCREENING Chronic idiopathic constipation Epigastric pain (R10.13) GERD, unspecified (K21.9) 06/02/2025 12:30 PM EDT documented as of this encounter Visit Diagnoses Not on filedocumented in this encounter Additional Health Concerns Assessment Noted Time PHQ-9 Depression Total Score: 15 025 2:39 PM EDT documented as of this encounter Care Teams Cementer Hand Relationship Specialty Start Date End Date Camille Corley, BELT DRESSER-EMPLOYMENT LAW SPECIALIST [address] [facility] [place] [address] PCP - General Family Medicine 11/04/24 documented as of this encounter
--- OUTSIDE RECORDS SUMMARY | 2025-05-13 19:25 | XMS_ITS | Clinical Summary ---
Author Organization [employer] tem Address [id number] [address] [place] [address] Care Team Providers Care Metal Bonder Name Role Phone Camille Corley APRN-ACCOUNTS RECEIVABLE COLLECTOR Primary Care Provi estefani Allergies Active Allergy Reactions Criticality Noted Date Comments Diphenhydramine Hcl 10/08/2024 [place] like I was dying Medications * This document contains information received from the source organization and may not represent a complete record from that organization. traZODone (DESYREL) 50 mg tablet TAKE 1 TABLET(50 MG) BY MOUTH EVERY NIGHT NEEDED FOR SLEEP 90 tablet 5 Active omeprazole (PriLOSEC) 20 mg capsuleIndicatio ns:Left sided abdominal pain Take 1 capsule (20 mg total) by mouth every morning before breakfast. 30 capsule 2 5 Active linaCLOtide (LINZESS) 145 mcg capsuleIndicatio ns:Chronic idiopathic constipation Take 1 capsule (145 mcg total) by mouth every morning before breakfast. 90 capsule 3 5 Active LORazepam (ATIVAN) 0.5 mg tabletIndication s:Acute adjustment disorder with anxiety Take 1 tablet (0.5 mg total) by mouth daily as needed for anxiety. 10 tablet 5 Active Additional Information Patient not taking.Reported on 04/15/2025 peg 3350-sod sulf,chlr-pot-ma g 178.7-7.3-0.5 gram recon solnIndications: Epigastric pain,Gastroesoph ageal reflux disease, unspecified whether esophagitis present,Chronic idiopathic constipation Please follow colonoscopy prep instructions. 355 each 5 Active Additional Information Patient not taking.Reported on 04/15/2025 bisacodyL (DULCOLAX) 5 mg EC tabletIndication s:Epigastric pain,Gastroesoph ageal reflux disease, unspecified whether esophagitis present,Chronic idiopathic constipation Please follow the office colonoscopy prep instructions. 4 tablet Active Additional Information Patient not taking.Reported on 04/15/2025 FLUoxetine (PROzac) 20 mg capsule Take 2 capsules (40 mg total) by mouth in the morning. 60 capsule Active Active Problems Problem Noted Date Diagnosed Date Urinary frequency 02/12/2025 Left sided abdominal pain 01/01/2025 Abnormal stools 01/01/2025 Enterococcus UTI 11/19/2024 Overview (11/19/2024): + culture. Treated with amoxicillin 500 gm three times per day for 7 days (prescribed 10/21/24) E. coli UTI (urinary tract infection) 11/19/2024 Overview (11/19/2024): + culture. Treated with amoxicillin 500 gm three times per day for 7 days (prescribed 10/21/24) Obstructive sleep apnea syndrome 11/04/2024 Lipid screening 11/04/2024 Tobacco abuse 11/04/2024 Lung nodule seen on imaging study 11/04/2024 Palpitations 10/08/2024 Psychosis 01/06/2022 Suicidal ideation 01/06/2022 PTSD (post-traumatic stress disorder) 05/29/2020 MDD (major depressive disord er), recurrent, severe, with psychosis 07/06/2017 ADHD (attention deficit hype ractivity disorder), inattentive type 07/06/2017 Resolved Problems Problem Noted Date Diagnosed Date Resolved Date COVID-19 07/16/2021 09/08/2021 Adjustment disorder with anxiety 12/17/2019 02/18/2021 Encounters * This document contains information received from the source organization and may not represent a complete record from that organization. Date Type Department Care Team Description 05/13/2025 Refill [facility] Department of [address] [place] [address] Wendy Ramos APRN-BRIAN Chronic idiopathic constipation 04/15/2025 11:00 AM EDT Office Visit [facility] [address] [place] [address] Diana Najera MD MELISSA (obstructive sleep apnea) (Primary Dx); Class 1 obesity due to excess calories with serious comorbidity and body mass index (BMI) of 34.0 to 34.9 in adult; Shortness of breath 04/15/2025 Telephone [facility] [address] [facility] [place] [address] Shirley Zayas Ortega 04/15/2025 Travel 03/25/2025 Travel 02/25/2025 Refill [facility] Department of [address] [address] Lauryn Evans MD Epigastric pain (Primary Dx); Gastroesophageal reflux disease, unspecified whether esophagitis present; Chronic idiopathic constipation 02/14/2025 Telephone [facility] [address] [place] [address] [place] [address] Susu Iraheta CMA 02/12/2025 2:40 PM EDT Office Visit [facility] [address] [place] [address] [place] [phone] Camille Corley APRN-BRIAN Urinary frequency (Primary Dx); MDD (major depressive disorder), recurrent, severe, with psychosis (CMS-HCC); ADHD (attention deficit hyperactivity disorder), inattentive type; Psychosis, unspecified psychosis type (CMS-HCC) 02/12/2025 Orders Only [facility] [address] [place] [address] [place] [phone] Julia Carrizales CMA 02/12/2025 Travel from Last 3 Months Family History Medical History Relation Name Comments Schizophrenia Brother Schizophrenia Maternal Grandmother Bipolar disorder Mother Keesha Cardenas Depression Mother Keesha Cardenas Relation Name Status Comments Brother Maternal Grandmother Mother Keesha Cardenas Social History Tobacco Use Types Packs/Day Years Used Date Smoking Tobacco: Former Cigarettes 0.5 19.7 1 989 - 2005 Smokeless Tobacco: Never Tobacco Cessation:Counseling Given: Not Answered Comments:chews nicotine gum Alcohol Use Standard Drinks/Week [...] got money to buy more. Never True 03/25/2025 Within the past 12 months th e food we bought just didn't last and we didn't have money to get more. Never True 03/25/2025 Purpose - Life Answer Date Recorded Purpose and direction in life Unknown Comments No Sex and Gender Information Value Date Recorded Sex Assigned at Female 05/29/2020 3:52 PM EDT Legal Sex Female 11:24 AM EDT Gender Identity Female 05/29/2020 3:52 PM EDT Sexual Orientation Straight 05/29/2020 3: 52 PM EDT Last Filed Vital Signs Vital Sign Reading Time Taken Comments Blood Pressure 125/74 04/15/2025 11:02 AM EDT Pulse 77 04/15/2025 11:02 AM EDT Temperature 37 C (98.6 F) 02/12/2025 2:40 PM EDT Respiratory Rate 16 01/19/2025 5:43 PM EDT Oxygen Saturation 94% 04/15/2025 11:02 AM EDT Inhaled Oxygen Concentration - - Weight 87.8 kg (193 lb 8 oz) 04/15/2025 11:02 AM EDT Height 160 cm (5' 2.99 ) 04/15/2025 11:02 AM EDT Body Mass Index 34.29 04/15/2025 11:02 AM EDT Plan of Treatment Upcoming Encounters Date Type Department Care Team (Latest Contact Info) Description 05/21/2025 3:40 PM EDT [facility] [address] [place] [phone] Camille Corley, GROCERY CASHIER-ACCOUNTS RECEIVABLE COLLECTOR [address] [facility] [address] [place], [place] [phone] 05/22/2025 12:30 PM EDT Appointment [facility] - Endoscopy Pre and Post OP [address] [facility] [place] [address] 05/27/2025 2:15 PM EDT Support Visit [facility] On [address] [address] 06/02/2025 12:30 PM EDT Hospital Encounter [facility] - Endoscopy [address] [place] [address] Lauryn Evans MD [address] [facility], [facility] [address] [place] [address] 06/02/2025 12:30 PM EDT - 06/02/2025 1:30 PM EDT Surgery [facility] - Endoscopy [address] [place] [address] Lauryn Evans MD [address] [facility] [address] [place] [address] ESOPHAGOGASTRODUODENOSCOPY DIAGNOSTIC [44725 (CPT )] 07/10/2025 3:15 PM EST Office Visit [facility] [address] [facility] [place] [address] Yvette Suh, [address] [facility] [address] [place] [address] Scheduled Procedures Name Priority Associated Diagnoses Date/Ti me ESOPHAGOGASTRODUODENOSCOPY DIAGNOSTIC Chronic idiopathic constipation Epigastric pain (R10.13) GERD, unspecified (K21.9) 06/02/2025 12:30 PM EDT COLONOSCOPY DIAGNOSTIC / SCREENING Chronic idiopathic constipation Epigastric pain (R10.13) GERD, unspecified (K21.9) 06/02/2025 12:30 PM EDT Health Maintenance Due Date Last Done Comments Adult BMI Follow Up Plan 1991 DTaP,Tdap and Td Vaccines (1 - Tdap) 1992 Zoster (Shingles) Vaccine (1 of 2) 2023 Influenza Vaccine 05/05/2025 06/13/2019 Depression Screening 02/12/2026 02/12/2025 Adult BMI Screening 04/15/2026 04/15/2025 Tobacco Screening 04/15/2026 04/15/2025 Goals Goal Patient Goal Type Associated Problems Recent Progress Patient-Stated? Author Autogenerat ed Goal Care Plan Autogenerated Problem No Background, [employer] Not on file Procedures Procedure Name Priority Date/Time Associated Diagnosis Comments POCT URINALYSIS DIPSTICK ONLY Routine 02/12/2025 3:12 PM EDT Urinary frequency URINE CULTURE Routine 02/12/2025 3:10 PM EDT Urinary frequency from Last 3 Months Results * POCT urinalysis dipstick only (02/12/2025 3:12 PM EDT) External Poct Urine Color yellow MANUALLY TRANSCRIBED RESULTS External Poct Urine Character clear MANUALLY TRANSCRIBED RESULTS External Poct Urine Glucose Negative MANUALLY TRANSCRIBED RESULTS External Poct Urine Bilirubin Negative MANUALLY TRANSCRIBED RESULTS External Poct Urine Ketones Negative MANUALLY TRANSCRIBED RESULTS External Poct Urine Specific Rocky 1.010 MANUALLY TRANSCRIBED RESULTS External Poct Urine Blood Negative MANUALLY TRANSCRIBED RESULTS External Poct Urine Ph 5.5 MANUALLY TRANSCRIBED RESULTS External Poct Urine Protein Negative MANUALLY TRANSCRIBED RESULTS External Poct Urine Urobilinogen 0.2 MANUALLY TRANSCRIBED RESULTS External Poct Urine Nitrite Negative MANUALLY TRANSCRIBED RESULTS External Poct Urine Leukocyte Esterase Negative MANUALLY TRANSCRIBED RESULTS Urine 02/12/2025 3:12 PM EDT us Camille Corley APRN-ACCOUNTS RECEIVABLE COLLECTOR POINT OF CARE TEST ORDERABLES Final Result Performing Organization Address City/[facility] Co de Phone Number MANUALLY TRANSCRIBED RESULTS * Urine culture (clean catch) (02/12/2025 3:10 PM EDT) CULTURE RESULTS <10,000 ORGANISMS/m L NORMAL URO GENITAL VICK 02/13/2025 4:00 PM EDT [facility] Urine Urine specimen collection, clean catch / Unknown 02/12/2025 3:10 PM EDT 02/12/2025 3:10 PM EDT us Camille Corley APRN-ACCOUNTS RECEIVABLE COLLECTOR MICROBIOLOGY - GENE RAL ORDERABLES Final Result Performing Organization Address City/[facility]/ZIP Co de Phone Number [facility] [address] [place] [address], [place] [phone] from Last 3 Months Additional Health Concerns Active Problems Noted Date Diagnosed Date Autogenerated Problem 04/14/2025 Insurance [address] [place] [address] [employer] Care Teams Metal Bonder Relationship Specialty Start Date End Date Camille Corley, GROCERY CASHIER-ACCOUNTS RECEIVABLE COLLECTOR [address] [place] [address] PCP - General Family Medicine 11/04/24
--- OUTSIDE RECORDS SUMMARY | 2025-05-13 19:25 | XMS_ITS | Encounter Summary ---
Author Organization [facility] tem Address [id number] [address] [place] [address] Care Team Providers Care Nurse Practitioner Manager Name Role Phone Camille Corley [facility] Primary Care Provi estefani Reason for Visit * Reason Onset Date Comments Med Refill 05/13/2025 Encounter Details Date Type Department Care Team (Late st Contact Info) Description 05/13/2025 Refill [facility] Department of [facility] [address] [address] Wendy Ramos [facility] [address] [phone] Chronic idiopathic constipation Social History Tobacco Use Types Packs/Day Years [...] Description 05/21/2025 3:40 PM EDT Office Visit [facility] [address] [facility] [place] [address] Camille Corley, GEL COATER-PEELED POTATO INSPECTOR [address] [facility] [address] [place], [place] [phone] 05/22/2025 12:30 PM EDT Appointment [facility] - Endoscopy Pre and Post OP [address] [place] [phone] 05/27/2025 2:15 PM EDT Support Visit [facility] On [address] [address] 06/02/2025 12:30 PM EDT Hospital Encounter [facility] - Endoscopy [address] [place] [phone] Lauryn Evans MD [address] [facility] 103 [place] [address] 06/02/2025 12:30 PM EDT - 06/02/2025 1:30 PM EDT Surgery [facility] - Endoscopy [address] [address] Lauryn Evans MD [address] [facility] [address] [place] [address] ESOPHAGOGASTRODUODENOSCOPY DIAGNOSTIC [46834 (CPT )] 07/10/2025 3:15 PM EST Office Visit [facility] Pulmonary/Sleep Medicine [address] [facility] [place] [address] Yvette Suh, [address] [address] Scheduled Procedures Name Priority Associated Diagnoses Date/Ti me ESOPHAGOGASTRODUODENOSCOPY DIAGNOSTIC Chronic idiopathic constipation Epigastric pain (R10.13) GERD, unspecified (K21.9) 06/02/2025 12:30 PM EDT COLONOSCOPY DIAGNOSTIC / SCREENING Chronic idiopathic constipation Epigastric pain (R10.13) GERD, unspecified (K21.9) 06/02/2025 12:30 PM EDT documented as of this encounter Goals Goal Patient Goal Type Associated Problems Recent Progress Patient-Stated? Author Autogenerat ed Goal Care Plan Autogenerated Problem No Background, [employer] documented as of this encounter Visit Diagnoses Diagnosis Chronic idiopathic constipation Unspecified constipation documented in this encounter Additional Health Concerns Active Problems Noted Date Diagnosed Date Autogenerated Problem 04/14/2025 Assessment Noted Time PHQ-9 Depression Total Score: 15 025 2:39 PM EDT documented as of this encounter Care Teams Nurse Practitioner Manager Relationship Specialty Start Date End Date Camille Corley, GEL COATER-PEELED POTATO INSPECTOR [address], [place] [address] PCP - General Family Medicine 11/04/24 documented as of this encounter
--- OUTSIDE RECORDS SUMMARY | 2025-05-13 19:25 | XMS_ITS | Clinical Summary ---
Author Organization [facility] Address [address] [place] [address] Care Team Providers Care Acquisition Marketing Manager Name Role Phone Unavailable Primary Care Provider Unavailabl e Social History Tobacco Use Types Packs/Day Years Used Date Smoking Tobacco: Never Assessed Comments Unknown Sex and Gender Information Value Date Recorded Sex Assigned at Not on file Legal Sex Female 8:53 PM EST Gender Identity Not on file Sexual Orientation Not on file Plan of Treatment Not on file Insurance [employer]
--- OUTSIDE RECORDS SUMMARY | 2025-05-13 19:25 | XMS_ITS | Encounter Summary ---
Author Organization [employer] Address [id number] [address] [place] [address] Care Team Providers Care Construction Ironworker Name Role Phone Camille Corley APRN-ROUTEMAN Primary Care Provi [facility] Encounter Details Date Type Department Care Team (Late st Contact Info) Description 11/15/2024 Telephone [facility] [address] [place] [address] [place] [phone] Ava Coronel CNA Social History Tobacco Use Types Packs/Day Years Used Date Smoking Tobacco: Former Cigarettes Q uit: 09/18/2024 Smokeless Tobacco: Never Comments:chews nicotine gum Alcohol [...] 11/19/2024 PHQ-2 Answer Date Recorded Total Score 12 11/04/2024 PRAPARE - Transportation Answer Date Re corded [...] got money to buy more. Never True 11/19/2024 Within the past 12 months th e food we bought just didn't last and we didn't have money to get more. Never True 11/19/2024 Purpose - Life Answer Date Recorded Purpose and direction in life Unknown Comments No Sex and Gender Information Value Date Recorded Sex Assigned at Female 05/29/2020 3:52 PM EDT Legal Sex Female 11:24 AM EDT Gender Identity Female 05/29/2020 3:52 PM EDT Sexual Orientation Straight 05/29/2020 3: 52 PM EDT documented as of this encounter Miscellaneous Notes * Telephone Encounter - Ava Coronel CNA - 11/15/2024 11:54 AM EDT Sleep study was denied due to insurance. Requesting a home sleep study for patient. Please advise? * Telephone Encounter - YANIRA Nava - 11/15/2024 11:54 AM EDT Order placed documented in this encounter Plan of Treatment Upcoming Encounters Date Type Department Care Team (Latest Contact Info) Description 05/21/2025 3:40 PM EDT Office Visit [facility] [address] [place] [address] [address] Camille Corley APRN-CNP [address] [facility] [address] [place] [address] 05/22/2025 12:[address] [facility] - Endoscopy Pre and Post OP [address] [facility] [place] [phone] 05/27/2025 2:15 PM EDT Support Visit [facility] On [address] [address] 06/02/2025 12:30 PM EDT Hospital Encounter [facility] - Endoscopy [address] [facility] [place] [address] Lauryn Evans MD [address] [facility] 103 [place] [address] 06/02/2025 12:30 PM EDT - 06/02/2025 1:30 PM EDT Surgery [facility] - Endoscopy [address] [facility] [place] [address] Lauryn Evans MD [address] [facility] [address] [place] [address] ESOPHAGOGASTRODUODENOSCOPY DIAGNOSTIC [93971 (CPT )] 07/10/2025 3:15 PM EST Office Visit [facility] Pulmonary/Sleep Medicine [address] [facility] [place] [address] Yvette Suh DO [address] [facility] [address] [place] [address] Scheduled Procedures Name Priority Associated Diagnoses Date/Ti me ESOPHAGOGASTRODUODENOSCOPY DIAGNOSTIC Chronic idiopathic constipation Epigastric pain (R10.13) GERD, unspecified (K21.9) 06/02/2025 12:30 PM EDT COLONOSCOPY DIAGNOSTIC / SCREENING Chronic idiopathic constipation Epigastric pain (R10.13) GERD, unspecified (K21.9) 06/02/2025 12:30 PM EDT documented as of this encounter Visit Diagnoses Not on filedocumented in this encounter Additional Health Concerns Infection Onset Date Last Indicated Resolved Time Enteric Rule-Out 01/07/2025 01/06/2025 01/07/2025 2:44 PM EDT Assessment Noted Time PHQ-9 Depression Total Score: 12 025 10:15 AM EST documented as of this encounter Care Teams Construction Ironworker Relationship Specialty Start Date End Date Camille Corley, COAL WHEELER-ROUTEMAN [address] [place] [place], [place] [phone] PCP - General Family Medicine 11/04/24 documented as of this encounter
--- OUTSIDE RECORDS SUMMARY | 2025-05-13 19:25 | XMS_ITS | Patient Health Record ---
Author Organization [facility] vices Address [address] [place], [place] [id number] Care Team Providers Care Skip Operator Name Role Phone Milana Sandhu Primary Care Provider Tabatha Gonzalez Unavailable [phone] Esequiel Ernst Unavailable [phone] Allergies No Known Allergies Reason For Referral Reason eval and treat Diagnosis 1 Knee pain, acute, le ft (M25.562) Referral Organization Main Referring Provider First Name Milana Referring Provider Last Name Edson Referring Provider Speciality Nurse Prac titioner Referred Provider [facility] nt Referred Provider Specialty Orthopedics Referral Priority Routine Medications Medication SIG (Take, Route, Frequency, Duration) Notes Start Date End Date Status OLANZapine 2.5 MG TAKE 1 TABLET BY ROMEO TH NIGHTLY Oral; Duration: 90 Days Active Methylphenidate HCl ER (CD) 10 MG Oral; Duration: 20 Days Acti ve Immunizations Vaccine Route Administration Date Status Comme nts Influenza (split), 3 yrs and above IM Intramuscular 06/20/2005 Administered Status:Complete ,Reason:Given or N/A Td (adult), adsorbed-Private OTH Other/Miscellaneous 05/21/2004 Administered Status:Complete ,Reason:Given or N/A Social History Tobacco Use: Social History Observation Description Date Details (start date - stop date) Current Smoker 03/06/2022 - NA Sex Assigned At : Social History Observation Description Sex Assigned At Female Tobacco Use/Smoking Question Answer Notes Tobacco use: current every day smoker mariangel ent entered data When did you start smoking? 03/06/2022 p atient entered data PRAPARE Question Answer Notes Date Completed/Updated: 09/18/2023 mariangele nt entered data What is your current housing situation? I have h ousing patient entered data Are you worried about losing your housing? No patient entered data What is the highest level of school that you have finished? More than high school patient entered data What is your current work situation? [employer] patient entered data Has lack of transportation k ept you from medical appointments, meetings, work or from getting things needed for daily living? No How often do you see or talk to people that you care about and feel close to? (For example: talking to friends on the phone, visiting friends or family, going to buddhist or club meetings) Less than once a week patient entered d donnell How stressed are you? Stress is when someone feels tense, nervous, anxious, or can't sleep at night because their mind is troubled Very much patient entered data In the past year have you sp ent more than 2 nights in a row in a assisted, fci, [place] [facility] [place] center, or juvenile correctional facility? No patient entered data Are you a refugee? No patient en tered data What country are you from? [place] entered data Do you feel physically and e motionally safe where you currently live? No patient entered data In the past year, have you b een afraid of your partner or ex-partner? No patient entered data PRAPARE Score: 5 Problems Problem Type SNOMED Code ICD Code Onset Dates Problem Status W/U Status Risk Notes Problem Anxiety (98758338) Anxiety (F41.9) Active confi rmed Problem Schizoaffective disorder (20307648) Schizoaffective disorder (F25.9) Active confirmed Problem Posttraumatic stress disorder (77412235) PTSD (post-traumatic stress disorder) (F43.10) Active confirmed Problem Loss of appetite (00435729) Loss of appetite (R63.0) Active confirmed Problem Depression (852218408) Depressio n (F32.9) Active confirmed Problem Attention deficit hyperactivity disorder (246501851) ADHD (attention deficit hyperactivity disorder) (F90.9) Active confirmed Problem Allergic rhinitis (90090401) Allergic rhinitis (J30.9) Active confirmed Problem Paresthesia (63734623) Paresthes ia (R20.2) Active confirmed Problem Hypersomnia (63658820) Hypersomn olence (G47.10) Active confirmed Problem Pure hypercholesterolemia (476117163) Elevated LDL cholesterol level (E78.00) Active confirmed Problem Amnesia (88689914) Memory change (R41.3) Active confirmed Problem Major depression, single episode (13263897) Major depressive disorder, remission status unspecified, unspecified whether recurrent (F32.9) Active confirmed Problem Rheumatic mitral pawan ve disease (41129514) Disorder of mitral valve (I05.9) 2003 Active confirmed Descripti on:Mitral valve disorder Problem Major depression, single episode (67807288) Depression motion (F32.9) 2003 Active confirmed Descripti on:Depres sive disorder Problem Acne (17100537) Acne NEC (706.1) (706.1) 2003 Active confirmed Problem Exercise-induced asthma (46135662) Exercise-induced bronchospasm (493.81) (493.81) 2005 Active confirmed Problem Chest pain (42959849) Chest pain (R07.9) 2005 Active confirmed Problem Gastroesophageal reflux disease (939838739) Reflux, esophageal (530.81) (530.81) 2003 Active confirmed Vital Signs Heart Rate 72 /min 07/04/2024 Chaparrita Alvarez 07/04/2024 08:39:50 AM EDT > Temperature 97.8 degrees Fahrenheit 07/04/2024 Sheeba Vale 07/04/2024 08:39:50 AM EDT > Respiratory Rate 18 /min 07/04/2024 Nicole Alvarez ienne 07/04/2024 08:39:50 AM EDT > Height-cm 160.02 cm 07/04/2024 Chaparrita Alvarez 07/04/2024 08:39:50 AM EDT > Oximetry 98 % 07/04/2024 Chaparrita Alvarez 07/04/2024 08:39:50 AM EDT > Blood pressure diastolic 70 mm Hg 07/04/2024 Sheeba Garrido 07/04/2024 08:39:50 AM EDT > Weight-kg 84.37 kg 07/04/2024 Chaparrita Alvarez 07/04/2024 08:39:50 AM EDT > Height 63 in 07/04/2024 Chaparrita Alvarez 07/04/2024 08:39:50 AM EDT > Blood pressure systolic 101 mm Hg 07/04/2024 Sheeba Vale 07/04/2024 08:39:50 AM EDT > Weight 186.0 lbs 07/04/2024 Chaparrita Alvarez 07/04/2024 08:39:50 AM EDT > BMI 32.94 kg/m2 07/04/2024 Chaparrita Alvarez 07/04/2024 08:39:50 AM EDT > Encounters Encounter Location Date Provider Diagnosis Main [address] , [place] [id number] 07/04/2024 Milana Edson Knee pain, acute, le ft M25.562 Assessments Encounter Date Diagnosis (ICD Code) Assessment Notes Treatment Notes Treatment Clinical Notes Section Notes 07/04/2024 Knee pain, acute, left (ICD-10 - M25.562) RICE therapy Plan Of Treatment No Information Insurance Providers Payer Name Payer Address Payer Phone Subscriber Number Group Number Insured Name Patient Relationship to Insured Coverage Start Date Coverage End Date [employer] [address] [place] [address] [place], [place] [phone] [id number] 1 SUSAN STILES Spouse - patient is the spouse of the insured 2 Medical (General) History Medical History History ICD Code ADHD (attention deficit hyperactivity di sorder) F90.9 PTSD (post-traumatic stress disorder) F4 3.10 Depression F32.9 Schizoaffective disorder F25.9 Anxiety F41.9 Allergic rhinitis J30.9 Surgical History Surgery Date(Month/Year) EXTENSIVE HYSTERECTOMY 2014 carpal tunnel right 2019
--- OUTSIDE RECORDS SUMMARY | 2025-05-13 19:26 | XMS_ITS | Encounter Summary ---
Author Organization [facility] [employer] Sys [facility] Address [id number] [place] [address] Care Team Providers Care Net Application Architect Name Role Phone Camille Corley APRN-ATTENDANT ARCADE Primary Care Provi estefani Encounter Details Date Type Department Care Team (Late st Contact Info) Description 05/02/2024 Orders Only [facility] [address] [place] [id number] External, Scanning Provider Social History Tobacco Use Types Packs/Day Years Used Date Smoking Tobacco: Former Smokeless Tobacco: Never Comments:chews nicotine gum Alcohol Use Standard Drinks/Week Comments Not Currently 0 (1 standard drink = 0.6 oz pur e alcohol) occasionally Childcare Answer Date Recorded Childcare Unknown 02/01/2019 Employment Answer Date Recorded Employment Unknown 02/01/2019 Hunger Screening Answer Date Recorded Within the past 12 months we worried whether our food would run out before we got money to buy more. Never True 02/16/2024 Within the past 12 months th e food we bought just didn't last and we didn't have money to get more. Never True 02/16/2024 Purpose - Life Answer Date Recorded Purpose [...] Family Medicine [address] [place] [phone] Camille Corley, BUSINESS PROPOSAL REP-ATTENDANT ARCADE [address] [place] [address] 05/22/2025 12:30 PM EDT Appointment [facility] - Endoscopy Pre and Post OP [address] [facility] [place] [phone] 05/27/2025 2:15 PM EDT [facility] On [address] [address] 06/02/2025 12:30 PM EDT Hospital Encounter [facility] - Endoscopy [address] [place] [address] Lauryn Evans MD [address] [facility] [address] [place] [address] 06/02/2025 12:30 PM EDT - 06/02/2025 1:30 PM EDT Surgery [facility] - Endoscopy [address] [place] [address] Lauryn Evans MD [address] [facility] [address] [place] [address] ESOPHAGOGASTRODUODENOSCOPY DIAGNOSTIC [72314 (CPT )] 07/10/2025 3:15 PM EST Office Visit [facility] [address] [place] [phone] Yvette Suh DO [address] [address] Scheduled Procedures Name Priority Associated Diagnoses Date/Ti me ESOPHAGOGASTRODUODENOSCOPY DIAGNOSTIC Chronic idiopathic constipation Epigastric pain (R10.13) GERD, unspecified (K21.9) 06/02/2025 12:30 PM EDT COLONOSCOPY DIAGNOSTIC / SCREENING Chronic idiopathic constipation Epigastric pain (R10.13) GERD, unspecified (K21.9) 06/02/2025 12:30 PM EDT documented as of this encounter Procedures Procedure Name Priority Date/Time Associated Diagnosis Comments MULTIPLE LABS Routine 05/02/2024 9:39 AM EDT documented in this encounter Results * Multiple labs (05/02/2024 9:39 AM EDT) us Scanning Provider External ME IMAGING Final Result MANUALLY TRANSCRIBED RESULTS documented in this encounter Visit Diagnoses Not on filedocumented in this encounter Additional Health Concerns Infection Onset Date Last Indicated Resolved Time Enteric Rule-Out 01/07/2025 01/06/2025 01/07/2025 2:44 PM EDT documented as of this encounter Care Teams Net Application Architect Relationship Specialty Start Date End Date Camille Corley, BUSINESS PROPOSAL REP-ATTENDANT ARCADE [address] [place] [address] PCP - General Family Medicine 11/04/24 documented as of this encounter
--- OUTSIDE RECORDS SUMMARY | 2025-05-13 19:26 | XMS_ITS | CCD ---
Author Organization [facility] CliniSytx Care Team Providers Care Temperature Inspector Name Role Phone ABEL HERNANDEZ Admitting Unavailable ABEL HERNANDEZ Attending Unavailable ABEL HERNANDEZ Surgeon Unavailable [place] Procedure Practitioner Unavailab KAYLA Lanier Primary Care Unavailable KAYLA STRINGER Referring Unavailable MAGDA SIN Surgeon Unavailable [place] Procedure Practitioner Unavailab Larry Garvin Unavailable JOSE GRISSOM Admitting Unavailable JOSE GRISSOM Attending Unavailable MRAY, NONE LISTED Primary Care Unavaila JOSE Graham Consulting Unavailable LUIZA MYERS Consulting Unavailable Emani Saavedra Unavailable Laine Salazar Unavailable Tenzin Carrillo Attending Unavailab Tenzin Parker Admitting Unavailab Syeda Jacobson Primary Care Unavailable [facility] Primary Care Provider No Pcp, No Pcp Primary Care Provider UnavailShaikh Elmore MD Primary Care Provider Jory LAIRD-BRIAN, Camille A Primary Care Provi esetfani Unavailable Primary Care Provider UnavailKWAME Goetz Attending Unavailable Jory LAIRD-PROJECT PRODUCTION ENGINEER, Camille A Primary Care Provi estefani CAMILLE CORLEY Referring Unavailable CAMILLE CORLEY Primary Care Unavailable LUIZA CUELLO Referring Unavailable CAMILLE CORLEY Primary Care Unavailable WENDY JOHNSON Attending Unavailable CAMILLE CORLEY Referring Unavailable CAMILLE CORLEY Primary Care Unavailable YVETTE SUH Referring Unavailable CAMILLE CORLEY Primary Care Unavailable Valente MYERS Attending Unavailable LUIZA CUELLO Primary Care Unavailable JONATHAN ROGERS Attending Unavailab von CUELLO, LUIZA Referring Unavailable BADIK, LUIZA Primary Care Unavailable BADDANAY, LUIZA Primary Care Unavailable CUATE, DR. LUIZA Apodaca Primary Care Physician [phone] SAYRA VILLELA Attending Unavailable SERVICES, [facility] Care Unava ilable GONZALEZ, OLIVIA L Referring Unavailable SERVICES, [facility] Care Unava ilable GONZALEZ, OLIVIA L Referring Unavailable SERVICES, [facility] Unava ilable SAYRA VILLELA Attending Unavailable SHAIKH HOLLIS Referring Unavailable SERVICES, [facility] Unava ilable SAYRA VILLELA Attending Unavailable SERVICES, [facility] Unava ilable GBARIELA, MOHAMMED Attending Unavailable SERVICES, [facility] Unava ilable GABRIELA, MOHAMMED Referring Unavailable SERVICES, [facility] Unava ilable GABRIELA, MOHAMMED Referring Unavailable SERVICES, [facility] Unava ilable GABRIELA, MOHAMMED Referring Unavailable SERVICES, [facility] Unava ilable SAYRA VILLELA Attending Unavailable SERVICES, [facility] Unava ilable SAYRA VILLELA Attending Unavailable SERVICES, [facility] Unava ilable NATALYA MANCINI Referring Unavailable SERVICES, [facility] Unava ilable GABRIELA, MOHAMMED Referring Unavailable SERVICES, [facility] Unava ilable GABRIELA, MOHAMMED Referring Unavailable SERVICES, [facility] Unava ilable SAYRA VILLELA Attending Unavailable SERVICES, [facility] Unava ilable MELISSA MULLIGAN Attending Unavailable NO PCP, NO PCP Primary Care Unavailable NO PCP, NO PCP Primary Care Unavailable SHOSHANA MOREL Attending Unavailable SAYRA VILLELA Attending Unavailable JORY CAMILLE A Referring Unavailable JORY, CAMILLE A Primary Care Unavailable SAYRA VILLELA Attending Unavailable JORY, CAMILLE A Referring Unavailable JORY, CAMILLE A Primary Care Unavailable JORY, CAMILLE A Referring Unavailable JORY, CAMILLE A Primary Care Unavailable JORY, CAMILLE A Referring Unavailable JORY, CAMILLE A Primary Care Unavailable JORY, CAMILLE A Referring Unavailable JORY, CAMILLE A Primary Care Unavailable JORY, CAMILLE A Primary Care Unavailable SHOSHANA MOREL Attending Unavailable SAYRA VILLELA Attending Unavailable JORY, CAMILLE A Referring Unavailable JORY, CAMILLE A Primary Care Unavailable SAYRA VILLELA Attending Unavailable JORY, CAMILLE A Referring Unavailable JORY, CAMILLE A Primary Care Unavailable JORY, CAMILLE A Attending Unavailable JORY, CAMILLE A Primary Care Unavailable LUIZA CUELLO Attending Unavailable JORY, CAMILLE A Referring Unavailable JORY, CAMILLE A Primary Care Unavailable LUIZA CUELLO Attending Unavailable JORY, CAMILLE A Referring Unavailable JORY, CAMILLE A Primary Care Unavailable JORY, CAMILLE A Attending Unavailable JORY, CAMILLE A Referring Unavailable JORY, CAMILLE A Primary Care Unavailable VYETTE SUH Attending Unavailable ADDIE HENRIQUEZ Referring Unavailable JORY, CAMILLE A Primary Care Unavailable JORY, CAMILLE A Attending Unavailable JORY, CAMILLE A Referring Unavailable JORY, CAMILLE A Primary Care Unavailable PRISCILLA NAJERA Attending Unavailable JORY, CAMILLE A Referring Unavailable JORY, CAMILLE A Primary Care Unavailable Allergies Allergy Classification Reported Allergen(s) Allergy Type Date of Onset Reaction(s) Facility (5 sources) diphenhydrAMINE; Translations: [diphenhydramine] Drug Allergy Dizziness (finding) [facility] (1 source) diphenhydrAMINE Drug Allergy 3 [facility] Repository (20 sources) diphenhydrAMINE; Translations: [DIPHENHYDRAMINE HCL] [facility] ([facility] LORazepam; Translations: [LORAZEPAM] Drug Allergy 3 Other (See Comments) [employer] Work Phone: (1 source) diphenhydrAMINE; Translations: [Benadryl DF] Drug Allergy [facility] Repository Medications Current Medications Medication Drug Class(es) Dates [...] 10 tablet 0 08/07/2023 08/06/2024 Active amoxicillin 500 mg oral capsule (3 sources) Penicillin-class Antibacterial Start: 11-19-2024 End: 11-26-2024 take 1 capsule by mouth three times daily amoxicillin (AMOXIL) 500 mg capsule Indications: Dysuria , Enterococcus UTI Take 1 capsule (500 mg total) by mouth 3 (three) times a day for 7 days. 21 capsule 11/19/2024 11/26/2024 Active amoxicillin 875 mg / clavulanate 125 mg oral tablet (1 source) Penicillin-class Antibacterial Start: 08-09-2023 take 1 tablet by mouth every twelve hours Amoxicillin-Pot Clavulanate 875-125 MG 1 tablet Orally every 12 hrs for 10 days Aug, Active bisacodyl 5 mg delayed release oral tablet (3 sources) Stimulant Laxative Start: 02-28-2025 bisacodyL (DULCOLAX) 5 mg EC tablet Indications: Epigastric pain , Gastroesophageal reflux disease, unspecified whether esophagitis present , Chronic idiopathic constipation Please follow the office colonoscopy prep instructions. 4 tablet 02/28/2025 Active ciprofloxacin 500 mg oral tablet (6 sources) Quinolone Antimicrobial Start: 12-09-2024 End: 01-01-2025 Cipro 500 mg Tab See Instructions, 1 tab po night prior to cystoscopy. 1 tab po following cystoscopy., # 2 tab(s), Refills(s) 0, Pharmacy: [id number], 159, cm, 12/30/24 14:58:00 EDT, Height/Length Dosing, 87.4, kg, 12/30/24 14:58:00 EDT, Weight Dosing Start Date: 12/30/24 Status: Ordered Quantity: 2.0 Unit: tab(s) Repeat number: 1 cloNIDine hydrochloride 0.1 mg oral tablet (2 sources) Central alpha-2 Adrenergic Agonist cloNIDine HCl 0.1 MG Oral for 30 Days Active 24 hr desvenlafaxine succinate 25 mg extended release oral tablet (4 sources) Serotonin and Norepinephrine Reuptake Inhibitor Start: 01-28-2025 take 1 tablet by mouth every twenty-four hours in the morning desvenlafaxine (PRISTIQ) 25 mg 24 hr tablet Indications: MDD (major depressive disorder), recurrent, severe, with psychosis (CMS-HCC) Take 1 tablet (25 mg total) by mouth in the morning. 30 tablet 1 01/28/2025 Active 168 hr estradiol 0.27120 mg/hr transdermal system (4 sources) Estrogen Start: 12-09-2024 End: 12-09-2025 estradiol (Climara) 0.025 MG/24HR Indications: Menopause , Vasomotor symptoms due to menopause Place 1 patch over 7 days on the skin 1 (one) time per week 12 patch 3 12/09/2024 12/09/2025 Active Start: 12-09-2024 End: 01-08-2025 estradiol (Estrace) 0.1 MG/G M vaginal cream Indications: Menopause , Vasomotor symptoms due to menopause Insert 2 g into the vagina Daily Apply 1/2 APPLICATOR daily for 2 weeks 42.5 g 2 12/09/2024 01/08/2025 Active FLUoxetine 20 mg oral capsule (20 sources) Serotonin Reuptake Inhibitor Start: 03-31-2025 take 2 capsules by mouth in the morning FLUoxetine (PROzac) 20 mg capsule Take 2 capsules (40 mg total) by mouth in the morning. 60 capsule 03/31/2025 Active Start: 11-11-2024 End: 01-14-2025 FLUoxetine 20 mg Cap 40 mg = 2 cap(s), Refills(s) 0 Start Date: 12/26/24 Status: Ordered Repeat number: 1 Start: 08-07-2023 take 1 capsule by mo uth in the morning FLUoxetine (PROzac) 20 mg capsule Take 1 capsule (20 mg total) by mouth in the morning. 90 capsule 1 07/31/2024 Active 24 hr levomilnacipran 20 mg extended release oral capsule (3 sources) Serotonin and Norepinephrine Reuptake Inhibitor Start: 01-14-2025 take 1 capsule by mouth every twenty-four hours in the morning levomilnacipran (FETZIMA) 20 mg capsule,extended release 24 hr Indications: MDD (major depressive disorder), recurrent, severe, with psychosis (CMS-HCC) Take 1 capsule (20 mg total) by mouth in the morning. 30 capsule 01/14/2025 Active linaclotide 0.145 mg oral capsule (9 sources) Guanylate Cyclase-C Agonist Start: 01-20-2025 End: 01-20-2025 take 1 capsule by mouth once daily before breakfast linaCLOtide (LINZESS) 145 mcg capsule Indications: Chronic idiopathic constipation Take 1 capsule (145 mcg total) by mouth every morning before breakfast. 90 capsule 3 01/20/2025 Active LORazepam 0.5 mg oral tablet (20 sources) Benzodiazepine Start: 01-28-2025 take 1 tablet by mouth once daily as needed for anxiety LORazepam (ATIVAN) 0.5 mg tablet Indications: Acute adjustment disorder with anxiety Take 1 tablet (0.5 mg total) by mouth daily as needed for anxiety. 10 tablet 01/28/2025 Active Start: 12-31-2024 take 1 tablet by chung once daily as needed for anxiety LORazepam (ATIVAN) 0.5 mg tablet Indications: Acute adjustment disorder with anxiety Take 1 tablet (0.5 mg total) by mouth daily as needed for anxiety. 10 tablet 12/31/2024 Active Ativan Not-Takin g 30/70 release 24 hr methylphenidate hydrochloride 10 mg extended release oral capsule (12 sources) Central Nervous System Stimulant Start: 07-01-2024 take 1 capsule by mouth once daily methylphenidate CD (METADATE CD) 10 mg CR capsule Indications: ADHD (attention deficit hyperactivity disorder), inattentive type Take 1 capsule (10 mg total) by mouth daily. Max Daily Amount: 10 mg 30 capsule 07/01/2024 Active Start: 05-31-2024 take 1 capsule by mo [facility] once daily methylphenidate CD (METADATE CD) 10 mg CR capsule Indications: ADHD (attention deficit hyperactivity disorder), inattentive type Take 1 capsule (10 mg total) by mouth daily. Max Daily Amount: 10 mg 30 capsule 05/31/2024 Active Start: 08-21-2023 take 1 capsule by mo uth once daily methylphenidate CD (METADATE CD) 10 mg CR capsule Indications: ADHD (attention deficit hyperactivity disorder), inattentive type Take 1 capsule (10 mg total) by mouth daily. Max Daily Amount: 10 mg 30 capsule 0 08/21/2023 Active End: 12-09-2024 take 5 capsules by mouth once daily before mealtime methylphenidate CD (Metadate CD) 10 MG daily capsule Take 50 mg by mouth in the morning. Take before meals. Do not crush or chew. 2 capsules. 12/09/2024 Discontinued Ritalin Active Zyprexa (5 sources) Atypical Antipsychotic Start: 12-30-2024 Zyprexa Start Date: 12/30/24 Status: Ordered Repeat number: 1 Start: 07-17-2024 take 1 tablet by chung th at bedtime OLANZapine (ZyPREXA) 2.5 mg tablet Take 1 tablet (2.5 mg total) by mouth in the morning and at bedtime. 07/17/2024 Active Start: 05-07-2024 take 1 tablet by chung th once daily OLANZapine (ZyPREXA) 2.5 mg tablet Take 1 tablet (2.5 mg total) by mouth nightly. 30 tablet 1 05/07/2024 Active omeprazole 20 mg delayed release oral capsule (17 sources) Proton Pump Inhibitor Start: 01-01-2025 take 1 capsule by mouth once daily before breakfast omeprazole (PriLOSEC) 20 mg capsule Indications: Left sided abdominal pain Take 1 capsule (20 mg total) by mouth every morning before breakfast. 30 capsule 2 01/01/2025 Active peg 3350-sod sulf,ucor-lok-inr 178.7-7.3-0.5 gram recon soln (3 sources) Start: 02-28-2025 peg 3350-sod sulf,ewmp-nzr-hqq 178.7-7.3-0.5 gram recon soln Indications: Epigastric pain , Gastroesophageal reflux disease, unspecified whether esophagitis present , Chronic idiopathic constipation Please follow colonoscopy prep instructions. 355 each 02/28/2025 Active phenazopyridine hydrochloride 100 mg oral tablet (2 sources) Start: 12-30-2024 take 1 tablet by mouth once daily as needed for pain phenazopyridine 100 mg Tab 100 mg = 1 tab(s), Oral, Daily, PRN bladder pain, # 15 tab(s), Refills(s) 0, Pharmacy: [facility] #[id number], 159, cm, 12/30/24 14:58:00 EDT, Height/Length Dosing, 87.4, kg, 12/30/24 14:58:00 EDT, Weight Dosing Start Date: 12/30/24 Status: Ordered Quantity: 15.0 Unit: tab(s) Repeat number: 1 Start: 12-17-2024 End: 12-22-2024 take 1 tablet by mouth three times daily as needed for muscle spasms phenazopyridine (PYRIDIUM) 100 mg tablet Indications: Recurrent UTI (urinary tract infection) Take 1 tablet (100 mg total) by mouth 3 (three) times a day as needed for bladder spasms for up to 5 days. 15 tablet 12/17/2024 12/22/2024 Active traZODone hydrochloride 50 mg oral tablet (20 sources) Serotonin Reuptake Inhibitor Start: 12-04-2024 take 1 tablet by mouth once daily as needed for sleep traZODone (DESYREL) 50 mg tablet TAKE 1 TABLET(50 MG) BY MOUTH EVERY NIGHT NEEDED FOR SLEEP 90 tablet 12/04/2024 Active Start: 10-04-2024 take 1 tablet by chung th once daily as needed for sleep traZODone (DESYREL) 100 mg tablet Take 1 tablet (100 mg total) by mouth nightly as needed for sleep. 30 tablet 1 10/04/2024 Active Start: 07-11-2023 take 1 tablet by chung th once daily as needed for sleep traZODone (DESYREL) 50 mg tablet Take 1 tablet (50 mg total) by mouth nightly as needed for sleep. 90 tablet 1 07/11/2023 Active take 0.5 tablet by m outh once daily traZODone (Desyrel) 50 MG tablet Take 50 mg by mouth Daily 1/2 tab Active traZODone HCl Ac tive 24 hr [...] Drug Class(es) Dates Sig (Normalized) Sig (Original) [id number] 200 actuat albuterol 0.09 mg/actuat metered dose [...] Once a day for 14 Aug, Not-Taking lithium carbonate 150 mg oral capsule (2 sources) Start: 12-12-2024 End: 12-18-2024 take 1 capsule by mouth in the morning, then take 1 capsule by mouth at mealtime lithium carbonate 150 mg capsule Indications: MDD (major depressive disorder), recurrent, severe, with psychosis (CMS-HCC) Take 1 capsule (150 mg total) by mouth in the morning and 1 capsule (150 mg total) in the evening. Take with meals. 60 capsule 12/12/2024 12/18/2024 Discontinued Start: 11-22-2024 take 1 capsule by mo uth in the morning, then take 1 capsule by mouth at mealtime lithium carbonate 150 mg capsule Indications: MDD (major depressive disorder), recurrent, severe, with psychosis (CMS-HCC) Take 1 capsule (150 mg total) by mouth in the morning and 1 capsule (150 mg total) in the evening. Take with meals. 60 capsule 11/22/2024 Active methylPREDNISolone 4 mg oral tablet (4 sources) Corticosteroid Start: 08-16-2016 Medrol 4 MG as directed Orally Aug, Not-Taking metoprolol tartrate 25 mg oral tablet (3 sources) beta-Adrenergic Kiera Start: 07-24-2024 End: 10-08-2024 take 0.5 tablet by mouth in the morning, then take 0.5 tablet by mouth at bedtime metoprolol tartrate (LOPRESSOR) 25 mg tablet Take 0.5 tablets (12.5 mg total) by mouth in the morning and 0.5 tablets (12.5 mg total) before bedtime. 30 tablet 11 07/24/2024 10/08/2024 Discontinued (Patient Stopped On Own) predniSONE 20 mg oral tablet (2 sources) [...] Vitamins Plus (4 sources) Vitamins Plus Not-Taking QUEtiapine 50 mg oral tablet (3 sources) Atypical Antipsychotic End: 12-09-2024 take 1 tablet by mouth at bedtime QUEtiapine (SEROquel) 50 MG tablet Take 50 mg by mouth at bedtime 1 tablet 12/09/2024 Discontinued Rochepin 1 Gram (1 source) Start: 08-09-2023 Rochepin 1 Gram Aug, 1 g Problems Active Problems Problem Classification Problem Date Documented Da te Episodic/Chronic Anxiety disorders (20 sources) Anxiety disorder, unspecified; Translations: [Posttraumatic stress disorder] Onset: 0 05-29-2020 Chronic Attention-deficit, conduct, and disruptive behavior disorders (20 sources) Attention deficit hyperactivity disorder, predominantly inattentive type; Translations: [Attention-deficit hyperactivity disorder, predominantly inattentive type] Onset: 7 07-06-2017 Chronic Attention-deficit, conduct, and disruptive behavior disorders (1 source) Attention deficit hyperactivity disorder 12-26-2024 Chronic Attention-deficit, conduct, and disruptive behavior disorders (2 sources) Attention-deficit hyperactivity disorder, predominantly inattentive type; Translations: [Attention-deficit hyperactivity disorder, predominantly inattentive type] Onset: 7 Chronic Blindness and vision defects (1 source) Other visual disturbances; Translations: [OTHER VISUAL DISTURBANCES] Onset: 2 Episodic E Codes: Natural/environment (1 source) Bitten by dog, initial encounter Episodic Esophageal disorders (4 sources) Gastroesophageal reflux disease; Translations: [Gastro-esophageal reflux disease without esophagitis] Onset: 5 01-14-2025 Chronic Gastrointestinal hemorrhage (3 sources) Rectal hemorrhage; Translations: [Hemorrhage of anus and rectum] Onset: 5 01-14-2025 Episodic Genitourinary symptoms and ill-defined conditions (14 sources) Dysuria; Translations: [Dysuria] Onset: 5 11-19-2024 Episodic Joint disorders and dislocations; trauma-related (1 source) Patellofemoral disorders, left knee; Translations: [Patellofemoral disorders, left knee] Onset: 4 Chronic Malaise and fatigue (1 source) Other fatigue; Translations: [Other fatigue] Onset: 5 Episodic Menopausal disorders (2 sources) Menopausal syndrome; Translations: [Menopausal and female climacteric states] 12-09-2024 Chronic Mood disorders (20 sources) Recurrent major depressive episodes, severe, with psychosis ; Translations: [Major depressive disorder, recurrent, severe with psychotic symptoms] Onset: 7 11-26-2021 Chronic Osteoarthritis (1 source) Unilateral primary osteoarthritis, left knee; Translations: [Unilateral primary osteoarthritis, left knee] Onset: 4 Chronic Other circulatory disease (1 source) Low blood pressure Onset: 5 Episodic Other endocrine disorders (2 sources) Disorder of endocrine system; Translations: [Endocrine disorder, unspecified] 12-09-2024 Episodic Other eye disorders (3 sources) Ocular pain, left eye; Translations: [OCULAR PAIN LEFT EYE] Onset: 2 Episodic Other gastrointestinal disorders (2 sources) Chronic idiopathic constipation; Translations: [Chronic idiopathic constipation] 01-20-2025 Chronic Other gastrointestinal disorders (2 sources) Mucus in stool; Translations: [Other fecal abnormalities] 01-01-2025 Episodic Other gastrointestinal disorders (2 sources) Drug-induced constipation; Translations: [Drug induced constipation] 01-14-2025 Episodic Other gastrointestinal disorders (1 source) Drug induced constipation; Translations: [Drug induced constipation] Onset: 5 Episodic Other lower respiratory disease (2 sources) Dyspnea; Translations: [Shortness of breath] 06-14-2024 Episodic Other nutritional; endocrine; and metabolic disorders (1 source) Obese class I; Translations: [Obesity (BMI 30.0-34.9)] 06-13-2024 Chronic Other nutritional; endocrine; and metabolic disorders (1 source) Obesity caused by energy imbalance; Translations: [Class 1 obesity due to excess calories with serious comorbidity and body mass index (BMI) of 34.0 to 34.9 in adult] 04-15-2025 Chronic Other skin disorders (1 source) Rash and other nonspecific skin eruption Episodic Other upper respiratory infections (2 sources) Acute upper respiratory infection, unspecified; Translations: [Acute pharyngitis, unspecified] Episodic Otitis media and related conditions (1 source) Otitis media, unspecified, left ear; Translations: [OTITIS MEDIA UNSPECIFIED LEFT EAR] Onset: 2 Episodic Residual codes; unclassified (20 sources) Sleep apnea; Translations: [Other sleep apnea] Onset: 5 11-04-2024 Chronic Residual codes; unclassified (20 sources) Obstructive sleep apnea syndrome; Translations: [Obstructive sleep apnea (adult) (pediatric)] Onset: 5 01-09-2025 Chronic Residual codes; unclassified (2 sources) Obstructive sleep apnea (adult) (pediatric); Translations: [Obstructive sleep apnea (adult) (pediatric)] Onset: 5 Chronic Residual codes; unclassified (1 source) Other sleep apnea; Translations: [Other sleep apnea] Onset: 5 Chronic Residual codes; unclassified (1 source) Acquired absence of both cervix and uterus; Translations: [ACQUIRED ABSENCE BOTH CERVIX AND UTERUS] Onset: 2 Episodic Residual codes; unclassified (2 sources) Menopause present; Translations: [Asymptomatic menopausal state] 12-09-2024 Episodic Schizophrenia and other psychotic disorders (20 sources) Psychotic disorder; Translations: [Unspecified psychosis not due to a substance or known physiological condition] Onset: 2 01-06-2022 Chronic Unclassified (1 source) Contact with and (suspected) exposure to covid-19; Translations: [Contact with and (suspected) exposure to covid-19] Unclassified (1 source) GI Problem Onset: 5 Unclassified (1 source) Obesity, class 1; Translations: [Obesity, class 1] Onset: 4 Unclassified (2 sources) New Patient Onset: 4 Unclassified (2 sources) Autogenerated Problem Onset: 5 04-14-2025 Unclassified (1 source) Establish Care Onset: 5 Past or Other Problems Problem Classification Problem Date Documented Da te Episodic/Chronic Abdominal pain (20 sources) Left sided abdominal pain; Translations: [Unspecified abdominal pain] Onset: 5 01-01-2025 Episodic Adjustment disorders (20 sources) Adjustment disorder with anxious mood; Translations: [Adjustment disorder with anxiety] Onset: 0 Resolved: 1 02-18-2021 Chronic Bacterial infection; unspecified site (2 sources) Enterococcus as the cause of diseases classified elsewhere; Translations: [Enterococcus as the cause of diseases classified elsewhere] Onset: 5 Episodic Cardiac dysrhythmias (20 sources) Palpitations; Translations: [Palpitations] Onset: 5 10-08-2024 Episodic Diabetes mellitus without complication (1 source) Impaired fasting glucose; Translations: [Impaired fasting glucose] Onset: 4 Episodic Mood disorders (20 sources) Mood disorders Onset: 4 Resolved: 5 06-04-2024 Nonspecific chest pain (4 sources) Chest pain; Translations: [Chest pain, unspecified] Onset: 4 06-14-2024 Episodic Other aftercare (1 source) Other fci (current) drug therapy; Translations: [Other fci (current) drug therapy] Onset: 5 Episodic Other gastrointestinal disorders (20 sources) Abnormal feces; Translations: [Other fecal abnormalities] Onset: 5 01-01-2025 Episodic Other gastrointestinal disorders (2 sources) Other fecal abnormalities; Translations: [Other fecal abnormalities] Onset: 5 Episodic Other lower respiratory disease (1 source) Snoring; Translations: [Snoring] 06-14-2024 Episodic Other lower respiratory disease (20 sources) Nodule of lung; Translations: [Solitary pulmonary nodule] Onset: 5 11-04-2024 Episodic Other lower respiratory disease (1 source) Snoring; Translations: [Snoring] Onset: 4 Episodic Other lower respiratory disease (1 source) Shortness of breath; Translations: [Shortness of breath] Onset: 4 Episodic Other lower respiratory disease (1 source) Solitary pulmonary nodule; Translations: [Solitary pulmonary nodule] Onset: 5 Episodic Other nervous system disorders (3 sources) Paresthesia; Translations: [Paresthesia of skin] Onset: 4 12-28-2023 Episodic Other screening for suspected conditions (not mental disorders or infectious disease) (20 sources) Ambulatory ECG abnormal; Translations: [Abnormal electrocardiogram [ECG] [EKG]] Onset: 4 07-24-2024 Episodic Residual codes; unclassified (20 sources) Tobacco user; Translations: [Tobacco use] Onset: 5 11-04-2024 Episodic Residual codes; unclassified (3 sources) Memory impairment; Translations: [Other amnesia] Onset: 4 12-28-2023 Episodic Residual codes; unclassified (1 source) Tobacco use; Translations: [Tobacco use] Onset: 5 Episodic Suicide and intentional self-inflicted injury (20 sources) Suicidal thoughts; Translations: [Suicidal ideations] Onset: 2 01-06-2022 Episodic Syncope (2 sources) Vasovagal symptom; Translations: [Syncope and collapse] Onset: 5 10-08-2024 Episodic Unclassified (3 sources) Contact with and (suspected) exposure to covid-19 Z20.822 Onset: 2 Resolved: 2 Unclassified (3 sources) Exposure to acute respiratory syndrome coronavirus 2; Translations: [Contact with and (suspected) exposure to covid-19] Unclassified (2 sources) Patient encounter status 11-04-2024 Urinary tract infections (20 sources) Urinary tract infection caused by Enterococcus; Translations: [Urinary tract infection, site not specified] Onset: 5 11-19-2024 Episodic Viral infection (20 sources) Disease caused by 2019-nCoV; Translations: [COVID-19] Onset: 1 Resolved: 2 09-08-2021 Episodic Viral infection (1 source) COVID-19 Onset: 2 Resolved: 2 Results Test Name Value Interpretation Reference Range Facility POCT urinalysis dipstick onl yOrdered By: Julia Carrizales on 02-12-2025 External Poct Urine Bilirubin Negative [facility] External Poct Urine Blood Negative [facility] External Poct Urine Character clear [facility] External Poct Urine Color yellow [facility] External Poct Urine Glucose Negative [facility] External Poct Urine Ketones Negative [facility] External Poct Urine Leukocyte Esterase Negative [facility] External Poct Urine Nitrite Negative [facility] External Poct Urine Ph 5.5 [facility] External Poct Urine Protein Negative [facility] External Poct Urine Specific [place] 1.01 [facility] External Poct Urine Urobilinogen 0.2 [facility] URINE CULTUREon 02-12-2025 Bacteria identified Cx Nom (U) CULTURE RESULTS <10,000 ORGANISMS/mL NORMAL URO GENITAL VICK Normal [facility] Comment on above: Performed By: #### U C #### [facility] ([facility]) [address] [place] [address] VIR BEDSIDE GLUCOSEon 01-19-2025 Glucose [Mass/Vol] 84 mg/dL Normal 65-99 [facility] Comment on above: Performed By: #### 1 9123-9, HA1C #### [facility] ([id number]) [address], [address] [place] [address] POCT NURSING URINE MACROSCOP IC UAon 01-19-2025 BILIRUBIN RAMONE Negative Normal Negative [facility] Comment on above: Performed By: #### 1 9123-9, HA1C #### [facility] ([id number]) [address], [address] [place] [address] BLOOD/HGB RAMONE Negative Normal Negative [facility] Comment on above: Performed By: #### 1 9123-9, HA1C #### [facility] ([id number]) [address], [address] [place] [address] GLUCOSE RAMONE Negative Normal Negative [facility] Comment on above: Performed By: #### 1 9123-9, HA1C #### [facility] ([id number]) [address], [address] [place] [address] KETONES RAMONE Negative Normal Negative [facility] Comment on above: Performed By: #### 1 9123-9, ALVERTO #### [facility] ([id number]) [address], [address] [place] [address] LEUKOCYTE ESTERASE RAMONE Trace Abnormal Negative [facility] Comment on above: Performed By: #### 1 9123-9, HA1C #### [facility] ([id number]) [address], [address] [place] [address] NITRITE RAMONE Negative Normal Negative [facility] Comment on above: Performed By: #### 1 9123-9, ALVERTO #### [facility] ([id number]) [address] [facility], [address] [place] [address] PH RAMONE 7.0 Normal 5.0, 6.0, 6.5, 7.0, 7.5, 8.0, 8.5, 5.5 [facility] Comment on above: Performed By: #### 1 9123-9, ALVERTO #### [facility] ([id number]) [address] [place] [address] PROTEIN RAMONE Negative Normal Negative [facility] Comment on above: Performed By: #### 1 9123-9, ALVERTO #### [facility] ([id number]) [address] [place] [address] SPECIFIC GRAVITY RAMONE 1.010 Normal 1.010, 1.015, 1.020, 1.025 [facility] Comment on above: Performed By: #### 1 9123-9, HA1C #### [facility] ([id number]) [address], [address] [place] [address] UROBILINOGEN RAMONE 0.2 E.U./dL Normal [facility] Comment on above: Performed By: #### 1 9123-9, HA1C #### [facility] ([id number]) [address], [address] [place] [address] CT ABDOMEN AND PELVIS WO CON Ton 01-13-2025 CT ABDOMEN AND PELVIS WO CONT CT ABDOMEN AND PELVIS WO CONT CT ABDOMEN AND PELVIS WITHOUT INTRAVENOUS CONTRAST HISTORY: Left-sided abdominal pain COMPARISON: 03/22/2014 TECHNIQUE: Axial images through the abdomen and pelvis obtained with coronal and sagittal reformatted images. FINDINGS: Sequela of old granulomatous disease. The liver, gallbladder, adrenal glands, spleen, pancreas, and kidneys are unremarkable. No enlarged abdominal or pelvic lymph nodes. The bladder is underdistended. Previous hysterectomy. The small and large bowel are of normal caliber with no evidence of bowel wall thickening. Normal appendix. No free fluid in the abdomen or pelvis. No free intraperitoneal air. Visualized body wall structures are unremarkable. No acute osseous abnormalities or aggressive osseous lesions. IMPRESSION: No acute or significant abnormalities identified in the abdomen/pelvis. All CT scans at this facility use dose modulation, iterative reconstruction, and/or weight based dosing when appropriate to reduce radiation dose to as low as reasonably achievable. Finalized by Eliu Mendez MD on 01/13/2025 1:14 PM Normal [facility] GI PANEL STOOL PATHOGEN PANE Joce 01-06-2025 ADENOVIRUS Not detected Normal Not Detected [facility] Comment on above: Performed By: #### 1 9123-9, TEO1C #### [facility] ([id number]) [address], [address] [place] [address] AGGREGATIVE E COLI Not detected Normal Not Detected [facility] Comment on above: Performed By: #### 1 9123-9, HA1C #### [facility] ([id number]) [address], [address] [place] [address] ASTROVIRUS Not detected Normal Not Detected [facility] Comment on above: Performed By: #### 1 9123-9, HA1C #### [facility] ([id number]) [address], [address] [place] [address] CAMPYLOBACTER Not detected Normal Not Detected [facility] Comment on above: Performed By: #### 1 9123-9, HA1C #### [facility] ([id number]) [address] [place] [address] CRYPTOSPORIDIUM Not detected Normal Not Detected [facility] Comment on above: Performed By: #### 1 9123-9, HA1C #### [facility] ([id number]) [address] [place] [address] CYCLOSPORA Not detected Normal Not Detected [facility] Comment on above: Performed By: #### 1 9123-9, HA1C #### [facility] ([id number]) [address], [address] [place] [address] E HISTOLYTICA Not detected Normal Not Detected [facility] Comment on above: Performed By: #### 1 9123-9, HA1C #### [facility] ([id number]) [address] [place] [address] GIARDIA LAMBLIA Not detected Normal Not Detected [facility] Comment on above: Performed By: #### 1 9123-9, HA1C #### [facility] ([id number]) [address] [place] [address] NOROVIRUS Not detected Normal Not Detected [facility] Comment on above: Performed By: #### 1 9123-9, HA1C #### [facility] ([id number]) [address] [place] [address] PATHOGENIC E COLI Not detected Normal Not Detected [facility] Comment on above: Performed By: #### 1 9123-9, HA1C #### [facility] ([id number]) [address] [place] [address] PLESIOMONAS Not detected Normal Not Detected [facility] Comment on above: Performed By: #### 1 9123-9, HA1C #### [facility] ([id number]) [address] [place] [address] ROTAVIRUS A Not detected Normal Not Detected [facility] Comment on above: Performed By: #### 1 9123-9, HA1C #### [facility] ([id number]) [address], [address] [place] [address] SALMONELLA Not detected Normal Not Detected [facility] Comment on above: Performed By: #### 1 9123-9, HA1C #### [facility] ([id number]) [address], [address] [place] [address] SAPOVIRUS Not detected Normal Not Detected [facility] Comment on above: Performed By: #### 1 9123-9, HA1C #### [facility] ([id number]) [address], [address] [place] [address] SHIGA TOXIN E COLI Not detected Normal Not Detected [facility] Comment on above: Performed By: #### 1 9123-9, HA1C #### [facility] ([id number]) [address], [address] [place] [address] SHIGELLA-E COLI Not detected Normal Not Detected [facility] Comment on above: Performed By: #### 1 9123-9, HA1C #### [facility] ([id number]) [address], [address] [place] [address] TOXIGENIC E COLI Not detected Normal Not Detected [facility] Comment on above: Performed By: #### 1 9123-9, HA1C #### [facility] ([id number]) [address], [address] [place] [address] VIBRIO Not detected Normal Not Detected [facility] Comment on above: Performed By: #### 1 9123-9, HA1C #### [facility] ([id number]) [address], [address] [place] [address] VIBRIO CHOLERAE Not detected Normal Not Detected [facility] Comment on above: Performed By: #### 1 9123-9, HA1C #### [facility] ([id number]) [address] [facility], [address] [place] [address] Y. ENTEROCOLITICA Not detected Normal Not Detected [facility] Comment on above: Performed By: #### 1 9123-9, HA1C #### [facility] ([id number]) [address], [address] [place] [address] XR ABDOMEN AP 1 VWon 025 XR ABDOMEN AP 1 VW XR ABDOMEN AP 1 VW Abdomen single view Clinical history:Left sided abdominal pain Comparison: 08/16/2011 Findings: AP supine view of the abdomen. Nonobstructive bowel gas pattern. Mild amount of gas and stool throughout the colon. Impression: Nonobstructive bowel gas pattern. Mild amount of gas and stool in the colon. Finalized by Luiza Goodwin MD on 01/03/2025 8:25 AM Normal [facility] Ambulatory Visit Summaryon 0 12-30-2024 Ambulatory Visit Summary Ambulatory Visit Summary MARIANNA STILES :1975 Visit Date:12/30/2024 Ambulatory Visit Instructions Your Diagnosis Recurrent UTI (urinary tract infection) Bladder pain Lower urinary tract symptoms (LUTS) Your Care Team Attending Physician - GENEVA ROGERS PA-C Primary Care Physician - DR. LUIZA CUELLO Referring Physician - DR. LUIZA CUELLO This Is Your Medications List ciprofloxacin (Cipro 500 mg Tab) phenazopyridine (phenazopyridine 100 mg Tab) Contact prescribing physician if questions or concerns fluoxetine (FLUoxetine 20 mg Cap) olanzapine (Zyprexa) trazodone (traZODONE 50 mg Tab) Procedures Performed Hysterectomy. Discharge Vitals Heart Rate (Peripheral) 66 Blood Pressure 124/75 Height 159 cm Height 63 in Weight 87.4 kg Weight 192.684 lb BMI 34.57 What to do next You Need to Schedule the Following Appointments Follow Up with [facility] When: Comments: our home care scheduler will be contacting you for follow-up Where: [address] [place] [address] Business (1) Medications What How Much When Instructions New ciprofloxacin (Cipro 500 mg Tab) See instructions 1 tab po night prior to cystoscopy. 1 tab po following cystoscopy. [facility] Changed phenazopyridine (phenazopyridine 100 mg Tab) 1 Tablets By Mouth Every day as needed for bladder pain [facility] Unchanged fluoxetine (FLUoxetine 20 mg Cap) 2 Capsules Contact prescribing physician if questions or concerns Unchanged olanzapine (Zyprexa) Contact prescribing physician if questions or concerns Unchanged trazodone (traZODONE 50 mg Tab) 1 Tablets By Mouth Once a day (at bedtime) Contact prescribing physician if questions or concerns [id number] [address] [place], [place] [id number] [phone] Allergies Benadryl DF (Dizziness) Problems Ongoing - Any problem that you are currently receiving treatment for. ADHD (attention deficit hyperactivity disorder) Bladder pain Enterococcus UTI Lower urinary tract symptoms (LUTS) MDD (major depressive disorder) Palpitations Psychoses PTSD (post-traumatic stress disorder) Recurrent UTI (urinary tract infection) Suicidal ideation Patient Survey You may receive a survey via text or e-mail asking about your office visit. Please share your experience with us by completing your survey. We appreciate your feedback and thank you for choosing us for your care. Education Materials Dysuria Dysuria is pain or discomfort during urination. The pain or discomfort may be felt in the part of the body that drains urine from the bladder (urethra) or in the surrounding tissue of the genitals. The pain may also be felt in the groin area, lower abdomen, or lower back. You may have to urinate frequently or have the sudden feeling that you have to urinate (urgency). Dysuria can affect anyone, but it is more common in females. Dysuria can be caused by many different things, including: ??? Urinary tract infection. ??? Kidney stones or bladder stones. ??? Certain STIs (sexually transmitted infections), such as chlamydia. ??? Dehydration. ??? Inflammation of the tissues of the vagina. ??? Use of certain medicines. ??? Use of certain soaps or scented products that cause irritation. Follow these instructions at home: Medicines ??? Take [id number] and prescription medicines only as told by your health care provider. ??? If you were prescribed an antibiotic medicine, take it as told by your health care provider. Do not stop taking the antibiotic even if you start to feel better. Eating and drinking ??? Drink enough fluid to keep your urine pale yellow. ??? Avoid caffeinated beverages, tea, and alcohol. These beverages can irritate the bladder and make dysuria worse. In males, alcohol may irritate the prostate. General instructions ??? Watch your condition for any changes. ??? Urinate often. Avoid holding urine for long periods of time. ??? If you are female, you should wipe from front to back after urinating or having a bowel movement. Use each piece of toilet paper only once. ??? Empty your bladder after sex. ??? Keep all follow-up visits. This is important. ??? If you had any tests done to find the cause of dysuria, it is up to you to get your test results. Ask your health care provider, or the department that is doing the test, when your results will be ready. Contact a health care provider if: ??? You have a fever. ??? You develop pain in your back or sides. ??? You have nausea or vomiting. ??? You have blood in your urine. ??? You are not urinating as often as you usually do. Get help right away if: ??? Your pain is severe and not relieved with medicines (more content not included)... Normal [facility] Urology Office/Clinic Noteon 12-30-2024 Urology Office/Clinic Note Urology Office/Clinic Note Chief Complaint New Pt. HPI Staff 49 yr old female referred by DR Luiza Cuello for enterococcus UTI & recurrent UTI BBSQ 20 +feeling of incomplete bladder emptying. PVR 24mL +stress incontinence +intermittent bladder pain, worse when laying down. +intermittent R flank pain. Review of Systems No fever, chills, malaise, myalgia. No dysuria. +constipation/diarrh ea (varies) No blood in urine or stool. +urgency/frequency, +straining Physical Exam Vitals & Measurements HR: 66(Peripheral) BP: 124/75 HT: 63 in HT: 159 cm WT: 192.684 lb WT: 87.4 kg BMI: 34.57 General: nontoxic, NAD Mouth: moist mucosa Lungs: normal respiratory effort Cardio: regular rate, good distal perfusion Abdomen: nondistended Neurologic: Grossly normal Skin: No rashes or suspicious lesions Assessment/Plan No new diet. Not sexually active. No hx stones. No hx DM. Was seen in ER Oct for chest pain. Had dark urine. +Cx. Then had f/u w PCP November. +Cx. No acute sx. Then again in early December. 1. Recurrent UTI (urinary tract infection) (N39.0: Urinary tract infection, site not specified) UTI Backround: Cx 10/21/24 ER for Chest pain. Dark urine only sx.+50-100k Enterococcus and 50-100k E Coli. Tx'd w Amox x 7d. Cx 11/20/24 PCP f/u. Dark urine only sx. +10-50k Enterococcus. Tx'd w Amox x 7d. Gave Pyridium. 12/11/24 f/u. Dark urine only sx. Tx'd w Cipro x 5d. Also started estrogen cream. UA completed in office today shows no microhematuria or signs of infection. UA in office today not suspicious for UTI Current UTI symptoms no UTIs started worsening in the past 3 mos Prior to that averaged UTIs never Contributing factors: Sense of incomplete emptying yesPVR _24ml Urinary incontinence yes but very mild Fecal incontinence no Hx stones no but does have intermittent R flank pain Diabetic no Immunosuppressed no Post-menopausal/hyst erectomy yes Hygiene habits - wipes front to back every time: yes; avoids baths/hot tubs: yes; avoids scented [employer] products: yes; urinates after sexual activity: n/a Typical fluid intake daily - Drinks coffee, juice, water. To decrease UTI frequency: -Increase fluids. Aim for at least 2L daily. General bladder health reviewed and pt education provided. Bladder irritant list provided for pt to review. -Discussed double void maneuvers to empty bladder fully (encouraged to lean forward, apply gentle pressure on the bladder, and standing then sitting again). Further evaluation: -We will check KUB & KYRA to rule out stones as contributing factor to UTIs. Will call pt with results. If shows significant stone burden, pt will need appt to discuss tx options. -Will schedule Cysto with possible UD. The risks and benefits for cystoscopy have been discussed. The risks include bleeding, infection, and irritation of the bladder and urinary channel, among others. The patient, after being informed of procedural details and after questions have been answered, wishes to proceed. Full informed consent has been obtained. Will order Local anesthesia. Abx sent. Future UTIs: -Pt advised to contact our office w all future UTI sx so we can monitor urine cx results, treat appropriately (may require extended course abx), and monitor frequency of infections. -Pt advised if develops fever, severe flank pain, vomiting - needs to go to ER. Ordered: 75611 Measure Post Void residual urine and/or bladder capacity by US- non-imaging E&M of New Patient Moderate 45-59 Min 21852 Urnls Dip Stick Auto w/o Microscopy POC 75011 2. Bladder pain (R39.89: Other symptoms and signs involving the genitourinary system) Chronic x 10 yrs. Intermittent since hysterectomy. Has not been evaluated for this previously. Worse when she lays down. No change with full or empty bladder. No change with urination. No change w abx. Pyridium does help. Requesting refill. Risks/benefits/side effects discussed. Pt does have constipation/diarrhe a - discussed bowel/bladder connection. See #1. Ordered: E&M of New Patient Moderate 45-59 Min 19601 3. Lower urinary tract symptoms (LUTS) (R39.9: Unspecified symptoms and signs involving the genitourinary system) Weak stream, straining, intermittency, hesitancy. q1h frequency, severe urgency. BBSQ 20 poor control. See #1. If no significant stricture, could consider OAB meds (anticholinergic vs Beta 3). Ordered: E&M of New Patient Moderate 45-59 Min 47787 Orders: ciprofloxacin, See Instructions, 1 tab po night prior to cystoscopy. 1 tab po following cystoscopy., # 2 tab(s), Refills(s) 0, [facility]: [facility] #[id number], 159, cm, 12/30/24 14:58:00 EDT, Height/Length Dosing, 87.4, kg, 12/30/24 14:58:00 EDT, Weight Dosing phenazopyridine, 100 mg = 1 tab(s), Oral, Daily, PRN bladder pain, # 15 tab(s), Refills(s) 0, Pharmacy: [facility] #[id number], 159, cm, 12/30/24 14:58:00 EDT, Height/Length Dosing, 87.4, kg, 12/30/24 14:58:00 EDT, Weight Dosing Follow-up Wi (more content not included)... Normal [facility] Comment on above: Result Comment: Elec tronically Signed By: SUE CASTILLO, GENEVA Funez\.br\Date and Time Signed: 12/30/24 15:50 EDT POCT urinalysis dipstick onl yon 11-19-2024 Appearance (U) clear [facility] External Poct Urine Bilirubin 1+ [facility] External Poct Urine Blood Negative [facility] External Poct Urine Character no ordor [facility] External Poct Urine Color larry [facility] External Poct Urine Glucose Negative [facility] External Poct Urine Ketones Positive [facility] External Poct Urine Leukocyte Esterase Trace [facility] External Poct Urine Nitrite Negative [facility] External Poct Urine Ph 6 [facility] External Poct Urine Protein Negative [facility] External Poct Urine Specific [place] 1.025 [facility] External Poct Urine Urobilinogen 0.2 [facility] URINE CULTUREon 11-19-2024 Bacteria identified Cx Nom (U) CULTURE RESULTS 10,000 to 50,000 ORGANISMS/mL ENTEROCOCCUS SPECIES Ampicillin or Amoxicillin is the drug of choice for uncomplicated cystitis caused by enterococci. Cephalosporins are inappropriate. <10,000 ORGANISMS/mL NORMAL URO GENITAL VICK [ S = SUSCEPTIBLE R = RESISTANT I = INTERMEDIATE S-DO = Susceptible-dose dependent NS = Non-suscceptible NO = No Interpretation ] Organism: ENTEROCOCCUS SPECIES Antibiotic Interpretation HANK Status AMPICILLIN S <=2 F LEVOFLOXACIN S 0.5 F NITROFURANTOIN S <=16 F VANCOMYCIN S 1 F Susceptible [facility] Comment on above: Performed By: #### 6 30-4 #### [facility] ([id number]) [facility] [facility], [address] [place] [address] Cobalamin (Vitamin B12) [Mas s/Vol]on 11-04-2024 [facility] Follicle stimulating hormone on 11-04-2024 Follitropin Qn 52.2 m[IU]/mL mIU/mL [facility] Comment on above: NORMAL FEMALE Luteal 1.8-5.1 mIU/mL Follicular 3.8-8.8 mIU/mL Mid Cycle 4.5-22.5 mIU/mL [facility] [place] 16.7-113.6 mIU/mL Follitropin Qnon 11-04-2024 [facility] FOLLICLE STIM HORMONE 52.2 mIU/mL Normal [facility] Comment on above: Result Comment: NORMAL FEMALE Luteal 1.8-5.1 mIU/mL Follicular 3.8-8.8 mIU/mL Mid Cycle 4.5-22.5 mIU/mL [place] 16.7-113.6 mIU/mL Performed By: #### 2 4331-1, 2132-9, 14718-3 #### [facility] ([id number]) [address] [place] [address], [address] [place] [address] Lipid 1996 panelon 5 Cholesterol [Mass/Vol] 197 mg/dL 150 - 200 mg/dL [facility] [facility] Cholesterol in HDL [Mass/Vol] 59 mg/dL 39 - PINF mg/dL [facility] [employer] [facility] Comment on above: HDL <40 mg/dL - High Risk HDL > or = 40mg/dL- Desirable HDL >60 mg/dL - Negative Risk Cholesterol in LDL [Mass/Vol] 122 mg/dL NINF - 130 mg/dL [facility] Comment on above: LDL <100 mg/dL - Desirable LDL >160 mg/dL - High Risk Cholesterol in VLDL [Mass/Vol] 16 mg/dL 0 - 30 mg/dL [facility] Cholesterol.total/Ch olesterol in HDL [Mass ratio] 3.3 {ratio} 1.0 - 5.0 [facility] Triglyceride [Mass/Vol] 80 mg/dL 27 - 150 [facility]dL [facility] Ch[facility] [Mass/Vol] 197 mg/dL Normal 150-200 [facility] Comment on above: Performed By: #### 2 4331-1, 2132-05, 00424-1 #### [facility] ([id number]) [facility], [address] [place] [address] Cholesterol in HDL [Mass/Vol] 59 mg/dL Normal >39 [facility] Comment on above: Result Comment: HDL <40 mg/dL - High Risk HDL > or = 40mg/dL- Desirable HDL >60 mg/dL - Negative Risk Performed By: #### 2 4331-1, 9, 22092-5 #### [facility] ([id number]) [address], [address] [place] [address] Cholesterol in LDL [Mass/Vol] 122 mg/dL Normal <130 [facility] Comment on above: Result Comment: LDL <100 mg/dL - Desirable LDL >160 mg/dL - High Risk Performed By: #### 2 4331-1, 2132-05, 08696-6 #### [facility] ([id number]) [address], [address] [place] [address] Cholesterol in VLDL [Mass/Vol] 16 mg/dL Normal 0-30 [facility] Comment on above: Performed By: #### 2 4331-1, 2132-05, 11895-0 #### [facility] ([id number]) [address], [address] [place] [address] CHOLESTEROL:HDL 3.3 Normal 1.0-5.0 [facility] Comment on above: Performed By: #### 2 4331-1, 2132-05, 73536-2 #### [facility] ([id number]) [address], [address] [place] [address] Triglyceride [Mass/Vol] 80 mg/dL Normal 27-150 [facility] Comment on above: Performed By: #### 2 4331-1, 2132-05, 71926-5 #### [facility] ([id number]) [address], [address] [place] [address] VITAMIN B12on 11-04-2024 Cobalamin (Vitamin B12) [Mass/Vol] 373 pg/mL Normal 180-914 [facility] Comment on above: Performed By: #### 2 4331-1, 2132-05, 01018-1 #### [facility] ([id number]) [address], [address] [place] [address] Vitamin B12on 11-04-2024 Cobalamin (Vitamin B12) [Mass/Vol] 373 pg/mL 180 - 914 pg/mL [facility] CBC AND AUTO DIFFon 10-17-19 25 ABSOLUTE BASOPHIL 0.1 X10E9/L Normal 0.0-0.2 [facility] Comment on above: Performed By: #### 1 4979-9, CBCA, PINR, 14529-9, CMP, 50542-9, 41333-4 #### [facility] ([id number]) [address] [place] [address] ABSOLUTE NEUTROPHIL 4.2 X10E9/L Normal 1.5-6.6 [facility] Comment on above: Performed By: #### 1 4979-9, CBCA, PINR, 14638-6, CMP, 89130-5, 45634-9 #### [facility] ([id number]) [address] [place] [address] Basophils/100 WBC (Bld) 0.8 % Normal [facility] Comment on above: Performed By: #### 1 4979-9, CBCA, PINR, 10915-9, CMP, 01222-1, 12540-2 #### [facility] ([id number]) [address] [place] [address] Eosinophils (Bld) [#/Vol] 0.2 10*3/uL Normal 0.0-0.4 [facility] Comment on above: Performed By: #### 1 4979-9, CBCA, PINR, 15688-3, CMP, 62962-3, 66132-2 #### [facility] ([id number]) [address] [place] [address] Eosinophils/100 WBC (Bld) 2.3 % Normal [facility] Comment on above: Performed By: #### 1 4979-9, CBCA, PINR, 78730-5, CMP, 46607-5, 53248-3 #### [facility] ([id number]) [address] [place] [address] Erythrocyte distribution width (RBC) [Ratio] 13.7 % Normal 11.5-15.0 [facility] Comment on above: Performed By: #### 1 4979-9, CBCA, PINR, 00314-4, CMP, 71339-9, 14187-3 #### [facility] ([id number]) [address] [place] [address] Hematocrit (Bld) [Volume fraction] 41.8 % Normal 35-47 [facility] Comment on above: Performed By: #### 1 4979-9, CBCA, PINR, 94054-1, CMP, 14076-8, 48099-4 #### [facility] ([id number]) [address] [place] [address] Hemoglobin (Bld) [Mass/Vol] 14.3 g/dL Normal 11.7-15.5 [facility] Comment on above: Performed By: #### 1 4979-9, CBCA, PINR, 17569-9, CMP, 69446-4, 51718-7 #### [facility] ([id number]) [address] [place] [address] Lymphocytes (Bld) [#/Vol] 2.2 10*3/uL Normal 1.0-3.5 [facility] Comment on above: Performed By: #### 1 4979-9, CBCA, PINR, 18001-7, CMP, 73048-4, 55913-8 #### [facility] ([id number]) [address] [place] [address] Lymphocytes/100 WBC (Bld) 30.6 % Normal [facility] Comment on above: Performed By: #### 1 4979-9, CBCA, PINR, 42401-8, CMP, 96332-8, 46014-0 #### [facility] ([id number]) [address] [place] [address]65 MCH (RBC) [Entitic mass] 29.3 pg Normal 27-34 [facility] Comment on above: Performed By: #### 1 4979-9, CBCA, PINR, 21586-2, CMP, 10687-4, 09599-7 #### [facility] ([id number]) [address] [place] [address]4 MCHC (RBC) [Mass/Vol] 34.2 g/dL Normal 32-36 [facility] Comment on above: Performed By: #### 1 4979-9, CBCA, PINR, 47138-1, CMP, 65412-9, 46332-0 #### [facility] ([id number]) [address] [place] [address] MCV (RBC) [Entitic vol] 86 fL Normal 80-100 [facility] Comment on above: Performed By: #### 1 4979-9, CBCA, PINR, 41633-8, CMP, 01723-6, 86028-2 #### [facility] ([id number]) [address] [place] [address] Monocytes (Bld) [#/Vol] 0.5 10*3/uL Normal 0-0.9 [facility] Comment on above: Performed By: #### 1 4979-9, CBCA, PINR, 47290-4, CMP, 27570-5, 05646-5 #### [facility] ([id number]) [address] [place] [address] Monocytes/100 WBC (Bld) 7.6 % Normal [facility] Comment on above: Performed By: #### 1 4979-9, CBCA, PINR, 21654-1, CMP, 03815-1, 32513-4 #### [facility] ([id number]) [address] [place] [address] Neutrophils/100 WBC (Bld) 58.7 % Normal [facility] Comment on above: Performed By: #### 1 4979-9, CBCA, PINR, 56844-6, CMP, 03432-3, 57335-5 #### [facility] ([id number]) [address] [place] [address] Platelet mean volume (Bld) [Entitic vol] 8.0 fL Normal 7-12 [facility] Comment on above: Performed By: #### 1 4979-9, CBCA, PINR, 33201-6, CMP, 46678-3, 73989-8 #### [facility] ([id number]) [address] [place] [address] Platelets (Bld) [#/Vol] 336 10*3/uL Normal 150-450 [facility] Comment on above: Performed By: #### 1 4979-9, CBCA, PINR, 20643-6, CMP, 95875-9, 39456-7 #### [facility] ([id number]) [address] [place] [address]65 RBC COUNT 4.88 X10E12/L Normal 3.80-5.20 [facility] Comment on above: Performed By: #### 1 4979-9, CBCA, PINR, 42994-1, CMP, 86336-3, 54046-5 #### [facility] ([id number]) [address] [place] [address] WBC (Bld) [#/Vol] 7.2 10*3/uL Normal 4.0-11.0 [facility] Comment on above: Performed By: #### 1 4979-9, CBCA, PINR, 89180-7, CMP, 67763-7, 76723-7 #### [facility] ([id number]) [address] [place] [address] COMPREHENSIVE METABOLIC PANE Joce 10-17-2024 Albumin [Mass/Vol] 4.2 g/dL Normal 3.2-5.3 [facility] Comment on above: Performed By: #### 1 9123-9, HA1C #### [facility] ([id number]) [address], [address] [place] [address] ALP [Catalytic activity/Vol] 79 U/L Normal 39-130 [facility] Comment on above: Performed By: #### 1 9123-9, HA1C #### [facility] ([id number]) [address], [address] [place] [address] ALT [Catalytic activity/Vol] 20 U/L Normal 0-31 [facility] Comment on above: Performed By: #### 1 9123-9, HA1C #### [facility] ([id number]) [address], [address] [place] [address] Anion gap [Moles/Vol] 7 mmol/L Normal 5-15 [facility] Comment on above: Performed By: #### 1 9123-9, HA1C #### [facility] ([id number]) [address], [address] [place] [address] AST [Catalytic activity/Vol] 19 U/L Normal 0-41 [facility] Comment on above: Performed By: #### 1 9123-9, HA1C #### [facility] ([id number]) [address], [address] [place] [address] Bilirubin [Mass/Vol] 1.1 mg/dL Normal 0.3-1.2 [facility] Comment on above: Performed By: #### 1 9123-9, HA1C #### [facility] ([id number]) [address], [address] [place] [address] Calcium [Mass/Vol] 9.0 mg/dL Normal 8.5-10.5 [facility] Comment on above: Performed By: #### 1 9123-9, HA1C #### [facility] ([id number]) [address], [address] [place] [address] Chloride [Moles/Vol] 104 mmol/L Normal 98-109 [facility] Comment on above: Performed By: #### 1 9123-9, HA1C #### [facility] ([id number]) [address], [address] [place] [address] CO2 [Moles/Vol] 26 mmol/L Normal 22-32 [facility] Comment on above: Performed By: #### 1 9123-9, HA1C #### [facility] ([id number]) [address], [address] [place] [address] Creatinine [Mass/Vol] 0.94 mg/dL Normal 0.40-1.00 [facility] Comment on above: Result Comment: METH OD TRACEABLE TO IDMS STANDARD Performed By: #### 1 9123-9, TEO1C #### [facility] ([id number]) [address], [address] [place] [address] GFR/1.73 sq M.predicted among non-blacks MDRD (S/P/Bld) [Vol rate/Area] 73 mL/min/{1.73_m2} Normal >59 [facility] Comment on above: Result Comment: Reported eGFR is based on the CKD-EPI 2020 equation that does not use a race coefficient. Performed By: #### 1 9123-9, HA1C #### [facility] ([id number]) [address], [address] [place] [address] Glucose [Mass/Vol] 92 mg/dL Normal 65-99 [facility] Comment on above: Performed By: #### 1 9123-9, HA1C #### [facility] ([id number]) [address], [address] [place] [address] Potassium [Moles/Vol] 4.0 mmol/L Normal 3.5-5.0 [facility] Comment on above: Performed By: #### 1 9123-9, HA1C #### [facility] ([id number]) [address], [address] [place] [address] Protein [Mass/Vol] 8.1 g/dL High 6.0-8.0 [facility] Comment on above: Performed By: #### 1 9123-9, HA1C #### [facility] ([id number]) [address], [address] [place] [address] Sodium [Moles/Vol] 137 mmol/L Normal 134-146 [facility] Comment on above: Performed By: #### 1 9123-9, HA1C #### [facility] ([id number]) [address], [address] [place] [address] Urea nitrogen [Mass/Vol] 14 mg/dL Normal 5-23 [facility] Comment on above: Performed By: #### 1 9123-9, HA1C #### [facility] ([id number]) [address], [address] [place] [address] CT CTA CHESTon 10-17-[address] CTA CHEST 10/17/2024 8:30 PM INDICATION: Pulmonary embolism (PE) suspected, low to intermediate prob, positive D-dimer COMPARISON: None TECHNIQUE: Contrast-enhanced CT images of the chest were obtained. 3-D images were also post processed at a separate workstation to further define anatomy and potential pathology. All CT scans at this facility use dose modulation, iterative reconstruction, and/or weight based dosing when appropriate to reduce radiation dose to as low as reasonably achievable. FINDINGS: LUNGS/PLEURA: Peripheral lung nodules versus small foci of atelectasis, measuring up to 5 mm. Near-complete calcified nodule of the right lung base. No pleural effusion, thickening or pneumothorax CENTRAL AIRWAYS: Patent trachea and mainstem bronchi. VASCULATURE: Normal course and caliber of the thoracic aorta. No pulmonary definite embolism. The main pulmonary artery is not enlarged. There is no reflux of contrast into the inferior vena cava. HEART/PERICARDIUM: The heart is not enlarged. No pericardial effusion. No significant coronary artery calcifications. MEDIASTINUM: No hilar or mediastinal lymphadenopathy. LOWER NECK: Unremarkable. CHEST WALL: No axillary adenopathy. UPPER ABDOMEN: Unremarkable. OSSEOUS STRUCTURES: Mild degenerative changes of the visualized spine. IMPRESSION: 1. No definite pulmonary embolism. 2. Peripheral lung nodules versus small foci of atelectasis, measuring up to 5 mm. Follow-up CT chest in 12 months could be obtained as a conservative measure. Finalized by Sayra Becker DO on 10/17/2024 9:26 PM Normal [facility] Fibrin D-dimer DDU (PPP) [Ma ss/Vol]on 10-17-2024 D DIMER 322 ng/mL DDU High <255 [facility] Comment on above: Result Comment: Results >=255ng/mL DDU: Results may be indicative of the presence of VTE. The use of the Wells score and further diagnostic tests should be considered. Elevated D-Dimer levels can also be associated with DIC, neoplasm, , trauma and liver disease. Elevated levels of rheumatoid factor may lead to an overestimation of the D-Dimer level. Performed By: #### 1 4979-9, CBCA, PINR, 67792-6, CMP, 52015-5, 25796-7 #### [facility] ([id number]) [address] [place] [address], [place] [address] Natriuretic peptide B [Mass/ Vol]on 10-17-2024 Natriuretic peptide B (Bld) [Mass/Vol] 41 pg/mL Normal <100.0 [facility] Comment on above: Performed By: #### 1 9123-9, HA1C #### [facility] ([id number]) [address], [address] [place] [address] PROTIME AND INRon 10-17-2024 INR Coag (PPP) [Relative time] 1.0 {INR} Normal 0.8-1.1 [facility] Comment on above: Performed By: #### 1 9123-9, HA1C #### [facility] ([id number]) [address] [facility], [address] [place] [address] PT Coag (PPP) [Time] 12.1 s Normal 9.8-13.2 [facility] Comment on above: Result Comment: NEW REFERENCE RANGE Performed By: #### 1 9123-9, HA1C #### [facility] ([id number]) [address] [facility], [address] [place] [address] SARS/FLU A+B/RSV by NAAT/Mol ecularon 10-17-2024 SARS/FLU A+B/RSV by NAAT/Molecular FLU A PCR Negative (qualifier value) FLU B PCR Negative (qualifier value) RSV by PCR Negative (qualifier value) SARS CoV 2 Not detected (qualifier value) NOTE The Xpert Xpress SARS-CoV-2/Flu/RSV Plus test is a rapid, multiplexed real-time RT-PCR test intended for the simultaneous qualitative detection and differentiation of SARS-CoV-2, influenza A, influenza B and respiratory syncytial virus (RSV) viral RNA from individuals suspected of respiratory viral infection consistent with COVID-19 by their healthcare provider. This test has not been validated in asymptomatic patients. The Xpert Xpress SARS-CoV-2 test is intended for use by qualified and trained operators who are performing tests using either [employer] or [employer] systems and is limited to laboratories that meet the CLIA requirements to perform high and moderate complexity tests. The Xpert Xpress SARS-CoV-2/Flu/RSV Plus is only for use under the Food and Drug Administration's Emergency Use Authorization. Results are for the simultaneous detection and differentiation of SARS-CoV-2, influenza A, influenza B and RSV nucleic acids in clinical specimens. SARS-CoV-2, influenza A, influenza B and RSV RNA identified by this test are generally detectable in upper respiratory samples during the acute phase of infection. Positive results are indicative of the presence of the identified virus, but do not rule out bacterial infection or co-infection with other pathogens not detected by this test. Clinical correlation with patient history and other diagnostic information is necessary to determine patient infection status. The agent detected may not be the definite cause of disease. Negative results do not preclude SARS-CoV-2, influenza A, influenza B and RSV infection and should not be used as the sole basis for treatment or other patient management decisions. Negative results must be combined with clinical observations, patient history and epidemiological information. An Invalid result may occur with specimen-associated inhibition unable to be resolved with specimen repeat. Fact Sheet for Healthcare Providers: https://www.fda.gov/ media/501735/downloa d Fact Sheet for Patients: https://www.fda.gov/ media/875777/downloa d Normal [facility] Comment on above: Performed By: #### 1 9123-9, HA1C #### [facility] ([id number]) [address], [address] [place] [address] Troponin I.cardiac High sens itivity method [Mass/Vol]on 10-17-2024 1 HOUR TROP I, HIGH SENSITIVITY <2 Normal <16 [facility] Comment on above: Performed By: #### 1 9123-9, HA1C #### [facility] ([id number]) [address], [address] [place] [address] TROPONIN I, HIGH SENSITIVITY <2 Normal <16 [facility] Comment on above: Performed By: #### 1 9123-9, HA1C #### [facility] ([id number]) [address], [address] [place] [address] URINE CULTUREon 10-17-2024 Bacteria identified Cx Nom (U) CULTURE RESULTS 50,000 to 100,000 ORGANISMS/mL ESCHERICHIA COLI 50,000 to 100,000 ORGANISMS/mL ENTEROCOCCUS SPECIES Ampicillin or Amoxicillin is the drug of choice for uncomplicated cystitis caused by enterococci. Cephalosporins are inappropriate. [ S = SUSCEPTIBLE R = RESISTANT I = INTERMEDIATE S-DO = Susceptible-dose dependent NS = Non-suscceptible NO = No Interpretation ] Organism: ESCHERICHIA COLI Antibiotic Interpretation HANK Status AMPICILLIN S <=2 F AMP/SULBACTAM S <=2/1 F CEFAZOLIN S <=4 F CEFTRIAXONE S <=0.25 F CIPROFLOXACIN S <=0.25 F GENTAMICIN S <=1 F LEVOFLOXACIN S <=0.12 F NITROFURANTOIN S <=16 F PIPERACIL/TAZOBACTAM S <=4 F TOBRAMYCIN S <=1 F TRIMETH/SULFAMETHOXA ZOLE S <=/19 F [ S = SUSCEPTIBLE R = RESISTANT I = INTERMEDIATE S-DO = Susceptible-dose dependent NS = Non-suscceptible NO = No Interpretation ] Organism: ENTEROCOCCUS SPECIES Antibiotic Interpretation HANK Status AMPICILLIN S <=2 F LEVOFLOXACIN S 1 F NITROFURANTOIN S <=16 F VANCOMYCIN S 1 F Susceptible [facility] Comment on above: Performed By: #### 1 9123-9, HA1C #### [facility] ([id number]) [address], [address] [place] [address] URN MACROSCOPIC NURon 2024 BILIRUBIN RAMONE Negative Normal NEG [facility] Comment on above: Performed By: #### 1 9123-9, HA1C #### [facility] ([id number]) [address], [address] [place] [address] BLOOD/HGB RAMONE Negative Normal NEG [facility] Comment on above: Performed By: #### 1 9123-9, HA1C #### [facility] ([id number]) [address], [address] [place] [address] GLUCOSE RAMONE Negative Normal NEG [facility] Comment on above: Performed By: #### 1 9123-9, HA1C #### [facility] ([id number]) [address], [address] [place] [address] KETONES RAMONE Negative Normal NEG [facility] Comment on above: Performed By: #### 1 9123-9, HA1C #### [facility] ([id number]) [address], [address] [place] [address] LEUKOCYTE ESTERASE RAMONE MODERATE Abnormal NEG [facility] Comment on above: Performed By: #### 1 9123-9, HA1C #### [facility] ([id number]) [address], [address] [place] [address] NITRITE RAMONE Negative Normal NEG [facility] Comment on above: Performed By: #### 1 9123-9, HA1C #### [facility] ([id number]) [address], [address] [place] [address] PH RAMONE 6.5 Normal 5.0-8.5 [facility] Comment on above: Performed By: #### 1 9123-9, HA1C #### [facility] ([id number]) [address], [facility] [address] [place] [address] PROTEIN RAMONE Negative Normal NEG [facility] Comment on above: Performed By: #### 1 9123-9, HA1C #### [facility] ([id number]) [address], [address] [place] [address] SPECIFIC GRAVITY RAMONE 1.025 Normal 1.003-1.035 [facility] Comment on above: Performed By: #### 1 9123-9, TEO1C #### [facility] ([id number]) [address], [facility] [address] [place] [address] UROBILINOGEN RAMONE 0.2 eu/dL Normal <1.1 [facility] Comment on above: Performed By: #### 1 9123-9, HA1C #### [facility] ([id number]) [address], [address] [address] XR CHEST 2 VWSon 10-17-2024 XR CHEST 2 VWS XR CHEST 2 VWS PA and lateral chest: HISTORY: Cough. Chest pain. 2 views the chest are obtained. Cardiac and mediastinal contours are within normal limits. Lungs are clear. There is no vascular congestion, effusion, or pneumothorax. Osseous structures appear intact. IMPRESSION: No acute findings. Finalized by Sami Beltran MD on 10/17/2024 7:16 PM Normal [facility] aPTT Coag (PPP) [Time]on aPTT Coag (Bld) [Time] 35 s Normal 26-37 [facility] Comment on above: Result Comment: NEW REFERENCE RANGE Performed By: #### 1 9123-9, HA1C #### [facility] ([id number]) [address], [address] [place] [address] Natriuretic peptide B [Mass/ Vol]on 08-30-2024 Natriuretic peptide B (Bld) [Mass/Vol] 57 pg/mL Normal <100.0 [facility] Comment on above: Performed By: #### T HYR #### [facility] ([id number]) [address] [facility], [address] [place] [address] #### 80883-9 #### [facility] ([id number]) [address] [place] [address] THYROID PROFILEon 08-30-2024 Free T4 [Mass/Vol] 0.75 ng/dL Normal 0.61-1.60 [facility] Comment on above: Result Comment: NEW REFERENCE RANGE FOR PEDIATRIC PATIENTS Performed By: #### T HYR #### [facility] ([id number]) [address] [facility], [address] [place] [address] #### [id number] #### [facility] ([id number]) [address] [place] [id number] TSH 0.83 uIU/mL Normal 0.49-4.67 [facility] Comment on above: Result Comment: NEW REFERENCE RANGE FOR PEDIATRIC PATIENTS Performed By: #### T HYR #### [facility] ([id number]) [address] [facility], [address] [place] [address] #### [id number] #### [facility] ([id number]) [address] [place] [id number] XR CHEST 2 VWSon 08-30-2024 XR CHEST 2 VWS XR CHEST 2 VWS XR CHEST 2 VWS Chest 2 views History: SOB (shortness of breath) Comparison: April 25, 2024 Impression: * No focal consolidation or pleural fluid. Grossly I cannot identify any mediastinal or hilar mass. No acute findings. Finalized by Sonny Gudino MD on 08/30/2024 3:51 PM Normal [facility] MR KNEE LT WO CONTon 024 MR KNEE LT WO CONT MR KNEE LT WO CONT MRI LEFT KNEE CLINICAL INFORMATION: Knee pain. COMPARISON: ?None. PROCEDURE: ?Multisequence, multiplanar MR images of the knee were obtained. FINDINGS: MENISCI Medial meniscus: Displaced flap type tear of the posterior horn medial meniscus at the free edge. Lateral meniscus: Intact LIGAMENTS Cruciate ligaments: Intact Medial collateral ligament: Superficial and deep components intact. No periligamentous edema. Lateral collateral ligament: No defect.. EXTENSOR MECHANISM Extensor mechanism: The distal quadriceps and patellar tendons are intact. The patella is normally positioned within the femoral groove. There is no retinacular disruption. FLUID Fluid: Small joint effusion. No Palmer's cyst or periarticular fluid collection. OSSEOUS and ARTICULAR STRUCTURES Bones: No fracture, stress reaction, or osseous lesion is seen. Patellofemoral compartment: Mild chondral thinning. No displaced chondral lesion. Medial compartment: Cartilage irregularity with grade 2 appearance. No displaced osteochondral lesion. Lateral compartment: No focal osteochondral abnormality. IMPRESSION: 1. SLAP type tear of the posterior horn medial meniscus. 2. 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 Intact knee ligaments. 4. Small joint effusion. Finalized by Alfonzo Dalton MD on 08/16/2024 10:48 PM Normal [facility] POCT EKGOrdered By: Bette apodaca on 06-14-2024 [facility] [employer] HGB A1C (GLYCO-HGB)on 2023 Glucose [Mass/Vol] 105 mg/dL Normal [facility] Comment on above: Performed By: #### 1 9123-9, HA1C #### [facility] ([id number]) [address] [facility], [address] [place] [address] HbA1c (Bld) [Mass fraction] 5.3 % Normal 4.4-5.6 [facility] Comment on above: Result Comment: NOTE ADA Guidelines Result HgbA1c Normal : less than 5.7 % Prediabetes : 5.7 % to 6.4 % Diabetes : > 6.4 % Use with caution in patients with abnormal hemoglobin variants as the half-life of red blood cells and in vivo glycation rates are affected. Performed By: #### 1 9123-9, HA1C #### [facility] ([id number]) [address], [address] [place] [address] MAGNESIUMon 04-25-2024 Magnesium [Mass/Vol] 2.0 mg/dL Normal 1.8-2.6 [facility] Comment on above: Performed By: #### 1 9123-9, HA1C #### [facility] ([id number]) [address], [address] [place] [address] COVID + FLU Quick Testingon 08-08-2023 SARS-CoV-2 (COVID-19) RNA ANTON+probe Ql (Unsp spec) Negative [employer] Other COVID + FLU Quick Testing Negative [employer] Other Quick Strepon 08-08-2023 S. pyogenes Org specific cx Ql (Throat) Negative [employer] Other Quick Strep [facility] [employer] Other COVID Quick Testingon 2022 Result Negative [employer] Other SARS-CoV-2 (COVID-19) RNA NA A+probe Ql (Resp)on 05-12-2023 SARS-CoV-2 (COVID-19) RNA ANTON+probe Ql (Unsp spec) Negative [facility] Other CT HEAD WO CONon 08-12-2022 CT HEAD WO CON INDICATION: 47 years old; Female. [Pressure with decreased vision for 2 days. TECHNIQUE: CT Head (ax/cor/sag reformats). Ionizing radiation dose reduced via iterative reconstruction/FBP blend and body size kV/mA adjustment. Comparison: CT angiogram of the head dated 06/15/2016. FINDINGS: POSTOPERATIVE CHANGES: None. BRAIN PARENCHYMA: No hemorrhage, mass or acute infarct. Normal barrow/white differentiation. VENTRICLES/EXTRA-AXI AL SPACES: Normal for patient's age. SINUSES/MASTOIDS: The visualized sinuses are clear. Mastoid air cells are clear. MSK: No displaced or depressed calvarial fracture is noted. OTHER: No hyperdense intraluminal thrombus is seen. IMPRESSION: 1. No acute intracranial abnormality. No hemorrhage or mass effect. This study does not include the orbits. Electronically authenticated by: LUIZA MYERS Date: 2022-08-12 03:15 Normal [facility] SARS-CoV-2 (COVID-19) RNA NA A+probe Ql (Resp)on 05-10-2022 SARS-CoV-2 (COVID-19) RNA ANTON+probe Ql (Unsp spec) Positive [employer] Other Operative Reporton Operative Report MR#: [id number] S [facility] Pt. Name: Marianna Stiles Room #: 0C Discharge Date: Birthdate: 1975 OPERATIVE REPORT DATE OF SURGERY: 09/09/2020 SURGEON: Abel Hernandez M.D. PREOPERATIVE DIAGNOSIS: Carpal tunnel syndrome, right hand. POSTOPERATIVE DIAGNOSIS: Carpal tunnel syndrome, right hand. PROCEDURE: Carpal tunnel release, right hand. SURGEON: Abel Hernandez M.D. LEAD APPLIER: Chapito Pelayo MD ANESTHESIA: MAC. INDICATION FOR [...] Hernandez M.D. Date Trans: 09/09/2020 11:12 Ortega/alex [id number] cc: Kayla Stringer N.P. [id number] [facility] [address] Normal [facility] POC GLUCOSE LABon 09-09-2020 Glucose [Mass/Vol] 100 mg/dL Normal 70-100 [facility] Comment on above: Performed By: #### 8 [id number] #### [facility] [address] [facility] *SARS-CoV-2 COVID-19on 09-05 SARS-CoV-2 (COVID-19) RNA ANTON+probe Ql (Unsp spec) Not detected Normal Not Detected [facility] Comment on above: Order Comment: The A ptima SARS-CoV-2 assay is a nucleic acid amplification test intended for the qualitative detection of RNA from SARS-CoV-2 isolated and purified from nasopharyngeal (WAREHOUSE PROCESSOR),oropharyngeal (OP), nasal swab, sputum, and bronchoalveolar lavage (BAL) specimens from patients with signs and symptoms of infection who are suspected of COVID-19. Results are for the identification of SARS-CoV-2 RNA. The SARS-CoV-2 RNA is generally detectable during the acute phase of infection. The Aptima SARS-CoV-2 Assay on the [employer] and [employer] Fusion system is intended for use by laboratory personnel specifically instructed and trained in the operation of the [place] and [employer] Fusion system. The Aptima SARS-CoV-2 assay is [...] information. Performed By: #### 3 [id number] #### [facility] [address] [facility]. [address] Vital Signs Date Time Vital Sign Value Performing Clinician Facility 04-15-2025 11:02040 Body height 160 cm Priscilla Najera MD Work Phone: [facility] 04-15-2025 11:02-040 Body mass index (BMI) [Ratio] 34.29 kg/m2 Priscilla Najera MD Work Phone: [facility] 04-15-2025 11:02040 Body weight 87.77 kg Priscilla Najera MD Work Phone: [facility] 04-15-2025 11:02-0400 Diastolic blood pressure 74 mm[Hg] Priscilla Najera MD Work Phone: [facility] 04-15-2025 11:02-0400 Heart rate 77 /min Priscilla Najrea MD Work Phone: [facility] 04-15-2025 11:02-0400 SaO2% (BldA) [Mass fraction] 94 % Priscilla Najera MD Work Phone: [facility] 04-15-2025 11:02-0400 Systolic blood pressure 125 mm[Hg] Priscilla Najera MD Work Phone: [facility] 02-12-2025 14:40-0400 Body height 160 cm Camille Burgosuessler HANDY MAN-PROJECT PRODUCTION ENGINEER Work Phone: [facility] 02-12-2025 14:40-0400 Body mass index (BMI) [Ratio] 34.2 kg/m2 Camille Burgosuessler HANDY MAN-PROJECT PRODUCTION ENGINEER Work Phone: [facility] 02-12-2025 14:40-0400 Body temperature 98.6 [degF] Camille Burgosuessler HANDY MAN-PROJECT PRODUCTION ENGINEER Work Phone: [facility] 02-12-2025 14:40-0400 Body weight 87.54 kg Camille Burgosuessler HANDY MAN-PROJECT PRODUCTION ENGINEER Work Phone: [facility] 02-12-2025 14:40-0400 Diastolic blood pressure 70 mm[Hg] Camille Jory HANDY MAN-PROJECT PRODUCTION ENGINEER Work Phone: [facility] 02-12-2025 14:40-0400 Heart rate 83 /min Camille Jory HANDY MAN-PROJECT PRODUCTION ENGINEER Work Phone: [facility] 02-12-2025 14:40-0400 SaO2% (BldA) [Mass fraction] 99 % Camille Corley HANDY MAN-PROJECT PRODUCTION ENGINEER Work Phone: [facility] 02-12-2025 14:40-0400 Systolic blood pressure 112 mm[Hg] Camille Corley HANDY MAN-PROJECT PRODUCTION ENGINEER Work Phone: [facility] 01-14-2025 12:16-0400 Body mass index (BMI) [Ratio] 34.31 kg/m2 Wendy Johnson HANDY MAN-PROJECT PRODUCTION ENGINEER Work Phone: [facility] 01-14-2025 12:16-0400 Body weight 87.82 kg Wendy Johnson HANDY MAN-PROJECT PRODUCTION ENGINEER Work Phone: [facility] 01-14-2025 12:16-0400 Diastolic blood pressure 70 mm[Hg] Wendy Johnson HANDY MAN-PROJECT PRODUCTION ENGINEER Work Phone: [facility] 01-14-2025 12:16-0400 Heart rate 75 /min Wendy Johnson HANDY MAN-PROJECT PRODUCTION ENGINEER Work Phone: [facility] 01-14-2025 12:16-0400 Systolic blood pressure 101 mm[Hg] Wendy Johnson HANDY MAN-PROJECT PRODUCTION ENGINEER Work Phone: [facility] 01-09-2025 15:06-0400 Body height 160 cm Yvette Suh DO Work Phone: [facility] 01-09-2025 15:06-0400 Body mass index (BMI) [Ratio] 33.4 kg/m2 Yvette Suh DO Work Phone: [facility] 01-09-2025 15:06-0400 Body weight 85.5 kg Yvette Suh DO Work Phone: [facility] 01-09-2025 15:06-0400 Diastolic blood pressure 75 mm[Hg] Yvette Suh DO Work Phone: [facility] 01-09-2025 15:06-0400 Heart rate 72 /min Yvette Suh DO Work Phone: [facility] 01-09-2025 15:06-0400 SaO2% (BldA) [Mass fraction] 100 % Yvette Suh DO Work Phone: [facility] [employer] [facility] 01-09-2025 15:06-0400 Systolic blood pressure 123 mm[Hg] Yvette Suh DO Work Phone: [facility] 01-01-2025 13:27-0400 Body height 160 cm Camille Corley HANDY MAN-PROJECT PRODUCTION ENGINEER Work Phone: [facility] [employer] [facility] 01-01-2025 13:27-0400 Body mass index (BMI) [Ratio] 33.7 kg/m2 Camille Corley HANDY MAN-PROJECT PRODUCTION ENGINEER Work Phone: [facility] [employer] [facility] 01-01-2025 13:27-0400 Body temperature 98.29 [degF] Camille Corley HANDY MAN-PROJECT PRODUCTION ENGINEER Work Phone: [facility] [employer] [facility] 01-01-2025 13:27-0400 Body weight 86.27 kg Camille Corley HANDY MAN-PROJECT PRODUCTION ENGINEER Work Phone: [facility] 01-01-2025 13:27-0400 Diastolic blood pressure 68 mm[Hg] Camille Corley HANDY MAN-PROJECT PRODUCTION ENGINEER Work Phone: [facility] 01-01-2025 13:27-0400 Heart rate 80 /min Camille Corley HANDY MAN-PROJECT PRODUCTION ENGINEER Work Phone: [facility] [employer] [facility] 01-01-2025 13:27-0400 SaO2% (BldA) [Mass fraction] 96 % Camille Corley HANDY MAN-PROJECT PRODUCTION ENGINEER Work Phone: [facility] [employer] [facility] 01-01-2025 13:27-0400 Systolic blood pressure 108 mm[Hg] Camille Riggsler HANDY MAN-PROJECT PRODUCTION ENGINEER Work Phone: [facility] 12-17-2024 10:18-0400 Body mass index (BMI) [Ratio] 34.27 kg/m2 Luiza Cuello DO Work Phone: [facility] [employer] [facility] 12-17-2024 10:18-0400 Body temperature 97.81 [degF] Luiza Cuello DO Work Phone: [facility] [employer] 12-17-2024 10:18-0400 Body weight 87.73 kg Luiza Cuello DO Work Phone: [facility] [employer] 12-17-2024 10:18-0400 Diastolic blood pressure 80 mm[Hg] Luiza Cuello DO Work Phone: [facility] [employer] 12-17-2024 10:18-0400 Heart rate 85 /min Luiza Cuello DO Work Phone: [facility] [employer] 12-17-2024 10:18-0400 SaO2% (BldA) [Mass fraction] 98 % Luiza Cuello DO Work Phone: [facility] [employer] 12-17-2024 10:18-0400 Systolic blood pressure 122 mm[Hg] Luiza Cuello DO Work Phone: [facility] [employer] 12-09-2024 13:08-0400 Body mass index (BMI) [Ratio] 32.62 kg/m2 Kwame Ralph DO Work Phone: [facility] [employer] 12-09-2024 13:08-0400 Body weight 86.86 kg Kwame Ralph DO Work Phone: [facility] 12-09-2024 13:08-0400 Diastolic blood pressure 84 mm[Hg] Kwame Ralph DO Work Phone: [facility] 12-09-2024 13:08-0400 Systolic blood pressure 116 mm[Hg] Kwame Ralph DO Work Phone: [facility] 11-19-2024 09:24-0400 Body mass index (BMI) [Ratio] 33.2 kg/m2 Luiza Cuello DO Work Phone: [facility] [employer] 11-19-2024 09:24-0400 Body temperature 99 [degF] Luiza Cuello DO Work Phone: [facility] [employer] 11-19-2024 09:24-0400 Body weight 85 kg Luiza Cuello DO Work Phone: [facility] [employer] [facility] 11-19-2024 09:24-0400 Diastolic blood pressure 80 mm[Hg] Luiza Cuello DO Work Phone: [facility] [employer] [facility] 11-19-2024 09:24-0400 Heart rate 96 /min Luiza Cuello DO Work Phone: [facility] [employer] [facility] 11-19-2024 09:24-0400 SaO2% (BldA) [Mass fraction] 98 % Luiza Cuello DO Work Phone: [facility] [employer] [facility] 11-19-2024 09:24-0400 Systolic blood pressure 110 mm[Hg] Luiza Cuello DO Work Phone: [facility] 11-04-2024 10:18-0500 Body height 160 cm Camille Corley HANDY MAN-PROJECT PRODUCTION ENGINEER Work Phone: [facility] 11-04-2024 10:18-0500 Body mass index (BMI) [Ratio] 33.74 kg/m2 Camille Corley HANDY MAN-PROJECT PRODUCTION ENGINEER Work Phone: [facility] [employer] [facility] 11-04-2024 10:18-0500 Body temperature 98.49 [degF] Camille Corley HANDY MAN-PROJECT PRODUCTION ENGINEER Work Phone: [facility] 11-04-2024 10:18-0500 Body weight 86.36 kg Camille Corley APRN-PROJECT PRODUCTION ENGINEER Work Phone: [facility] 11-04-2024 10:18-0500 Diastolic blood pressure 78 mm[Hg] Camille Corley HANDY MAN-PROJECT PRODUCTION ENGINEER Work Phone: [facility] 11-04-2024 10:18-0500 Heart rate 64 /min Camille Corley HANDY MAN-PROJECT PRODUCTION ENGINEER Work Phone: [facility] 11-04-2024 10:18-0500 SaO2% (BldA) [Mass fraction] 99 % Camille Corley HANDY MAN-PROJECT PRODUCTION ENGINEER Work Phone: [facility] 11-04-2024 10:18-0500 Systolic blood pressure 124 mm[Hg] Camille Corley APRNANA Work Phone: [facility] 10-08-2024 15:28-0500 Body height 160 cm Melissa DOYLE Work Phone: [facility] 10-08-2024 15:28-0500 Body mass index (BMI) [Ratio] 33.83 kg/m2 Melissa DOYLE Work Phone: [facility] 10-08-2024 15:28-0500 Body weight 86.64 kg Melissa DOYLE Work Phone: [facility] 10-08-2024 15:28-0500 Diastolic blood pressure 72 mm[Hg] Melissa DOYLE Work Phone: [facility] 10-08-2024 15:28-0500 Heart rate 85 /min Melissa DOYLE Work Phone: [facility] 10-08-2024 15:28-0500 SaO2% (BldA) [Mass fraction] 98 % Melissa DOYLE Work Phone: [facility] 10-08-2024 15:28-0500 Systolic blood pressure 100 mm[Hg] Melissa DOYLE Work Phone: [facility] 06-14-2024 09:34-0400 Body height 160 cm Addie Henriquez MD Work Phone: [facility] 06-14-2024 09:34-0400 Body mass index (BMI) [Ratio] 32.96 kg/m2 Addie Henriquez MD Work Phone: [facility] 06-14-2024 09:34-0400 Body weight 84.37 kg Addie Henriquez MD Work Phone: [facility] 06-14-2024 09:34-0400 Diastolic blood pressure 80 mm[Hg] Addie Henriquez MD Work Phone: [employer] 06-14-2024 09:34-0400 Heart rate 70 /min Addie Henriquez MD Work Phone: [employer] 06-14-2024 09:34-0400 SaO2% (BldA) [Mass fraction] 99 % Addie Henriquez MD Work Phone: [employer] 06-14-2024 09:34-0400 Systolic blood pressure 138 mm[Hg] Addie Henriquez MD Work Phone: [employer] 08-09-2023 15:15-0500 Body height 160.02 cm Laine Salazar Other [employer] Other 08-09-2023 15:15-0500 Body mass index (BMI) [Ratio] 31.88 kg/m2 Laine Marie Other [employer] Other 08-09-2023 15:15-0500 Body temperature 97.5 [degF] Laine Marie Other [employer] Other 08-09-2023 15:15-0500 Body weight 81.65 kg Laine Marie Other [employer] Other 08-09-2023 15:15-0500 Diastolic blood pressure 76 mm[Hg] Laine Marie Other [employer] Other 08-09-2023 15:15-0500 Respiratory rate 18 /min Laine Marie Other [employer] Other 08-09-2023 15:15-0500 SaO2% (BldA) [Mass fraction] 97 % Laine Marie Other [employer] Other 08-09-2023 15:15-0500 Systolic blood pressure 120 mm[Hg] Laine Salazar Other [employer] Other 08-08-2023 11:50-0500 Body height 160.02 cm Emani Keri Other [employer] Other 08-08-2023 11:50-0500 Body mass index (BMI) [Ratio] 32.27 kg/m2 Emani Keri Other [employer] Other 08-08-2023 11:50-0500 Body temperature 98.1 [degF] Emani Keri Other [employer] Other 08-08-2023 11:50-0500 Body weight 82.65 kg Emani Keri Other [employer] Other 08-08-2023 11:50-0500 Respiratory rate 18 /min Emani Keri Other [employer] Other 08-08-2023 11:50-0500 SaO2% (BldA) [Mass fraction] 99 % Emani Keri Other [employer] Other 05-12-2023 15:40-0400 Body height 160.02 cm Larry Law Other [employer] Other 05-12-2023 15:40-0400 Body mass index (BMI) [Ratio] 34.18 kg/m2 Larry Law Other [employer] Other 05-12-2023 15:40-0400 Body temperature 98.2 [degF] Larry Law Other [employer] Other 05-12-2023 15:40-0400 Body weight 87.54 kg Larry Law Other [employer] Other 05-12-2023 15:40-0400 Diastolic blood pressure 65 mm[Hg] Larry Law Other [employer] Other 05-12-2023 15:40-0400 Respiratory rate 18 /min Larry Law Other [employer] Other 05-12-2023 15:40-0400 SaO2% (BldA) [Mass fraction] 98 % Larry Law Other [employer] Other 05-12-2023 15:40-0400 Systolic blood pressure 119 mm[Hg] Larry Law Other [employer] Other 05-10-2022 13:40-0400 Body height 160.02 cm Larry Law Other [employer] Other 05-10-2022 13:40-0400 Body mass index (BMI) [Ratio] 30.11 kg/m2 Larry Law Other [employer] Other 05-10-2022 13:40-0400 Body temperature 98.9 [degF] Larry Law Other [employer] Other 05-10-2022 13:40-0400 Body weight 77.11 kg Larry Law Other [employer] Other 05-10-2022 13:40-0400 Respiratory rate 18 /min Larry Law Other [employer] Other 05-10-2022 13:400400 SaO2% (BldA) [Mass fraction] 96 % Larry Law Other [employer] Other Encounters Encounter Date Encounter Type Care Provider Facility Start: 04-15-2025 End: 04-17-2025 Telephone encounter Shirley [facility] Start: 04-15-2025 End: 04-15-2025 Office outpatient visit 15 minutes Priscilla Najera MD Work Phone: [facility] Comment on above: MELISSA (obstructive sle ep apnea) (Primary Dx); Class 1 obesity due to excess calories with serious comorbidity and body mass index (BMI) of 34.0 to 34.9 in adult; Shortness of breath Start: 04-15-2025 End: 04-15-2025 ambulatory PRISCILLA NAJERA [facility] Start: 03-25-2025 End: 03-25-2025 ambulatory SAYRA Garza MICHELLE [facility] Start: 02-25-2025 End: 02-28-2025 Campbell Evans MD Work Phone: [facility] Comment on above: Epigastric pain (Sharri evelin Dx); Gastroesophageal reflux disease, unspecified whether esophagitis present; Chronic idiopathic constipation Start: 02-14-2025 End: 02-14-2025 Telephone encounter Susu Iraheta CMA [facility] Start: 02-12-2025 End: 02-12-2025 Office outpatient visit 15 minutes Camille Corley HANDY MAN-PROJECT PRODUCTION ENGINEER Work Phone: [facility] Comment on above: Urinary frequency (P rimary Dx); MDD (major depressive disorder), recurrent, severe, with psychosis ([facility]); ADHD (attention deficit hyperactivity disorder), inattentive type; Psychosis, unspecified psychosis type ([facility]) Start: 02-12-2025 End: 02-12-2025 ambulatory CAMILLE CORLEY [facility] Start: 02-04-2025 End: 02-04-2025 ambulatory Valenteso MYERS Facility: [facility] Start: 02-04-2025 End: 02-04-2025 Patient encounter procedure Valente MYERS [facility] Start: 02-04-2025 End: 02-04-2025 Telephone encounter Cheyenne Casillas [facility] Start: 01-28-2025 End: 01-28-2025 ambulatory SAYRA Garza [facility] Start: 01-25-2025 ambulatory YVETTE SUH [facility] Start: 01-20-2025 End: 01-20-2025 Telephone encounter Reema Nagy [facility] Comment on above: Chronic idiopathic c onstipation (Primary Dx) Start: 01-19-2025 End: 01-19-2025 Emergency department patient visit CAMILLE CORLEY [facility] Start: 01-17-2025 End: 01-17-2025 Telephone encounter Susu Iraheta [facility] Start: 01-14-2025 End: 03-04-2025 Telephone encounter [facility] Work Phone: [facility], [facility] Department [facility] Comment on above: EGD; Colonoscopy Start: 01-14-2025 End: 01-14-2025 Office outpatient new 60 minutes Wendy Johnson HANDY MAN-PROJECT PRODUCTION ENGINEER Work Phone: [facility] Comment on above: Epigastric pain (Sharri evelin Dx); Gastroesophageal reflux disease, unspecified whether esophagitis present; Drug-induced constipation; Rectal bleeding Start: 01-14-2025 End: 01-14-2025 ambulatory WENDY JOHNSON [facility] Start: 01-13-2025 End: 01-13-2025 Orders Only Camille Corley HANDY MAN-PROJECT PRODUCTION ENGINEER Work Phone: [facility] Comment on above: Abnormal stools (Sharri evelin Dx); Left sided abdominal pain Start: 01-10-2025 End: 01-10-2025 Telephone encounter Yvette Suh DO Work Phone: [facility] Comment on above: Sleep Lab (COMP) Start: 01-09-2025 End: 01-09-2025 Office outpatient new 45 minutes Yvette Suh DO Work Phone: [facility] Comment on above: Tobacco abuse (Prima ry Dx); Lung nodule seen on imaging study; Obstructive sleep apnea syndrome Start: 01-09-2025 End: 01-09-2025 ambulatory [facility] Soheila SUH [facility] Start: 01-07-2025 ambulatory CAMILLE Ortega [facility] Start: 01-03-2025 End: 01-03-2025 Telephone encounter Susu Iraheta CMA [facility] Start: 01-01-2025 End: 01-01-2025 [facility] Start: 01-01-2025 End: 01-01-2025 Office outpatient visit 25 minutes Camille Corley HANDY MAN-PROJECT PRODUCTION ENGINEER Work Phone: [facility] Comment on above: Abnormal stools (Sharri evelin Dx); Left sided abdominal pain; Stool mucus Start: 12-31-2024 End: 12-31-2024 ambulatory SAYRA VILLELA [facility] Start: 12-30-2024 End: 12-30-2024 ambulatory JONATHAN ROGERS Facility:[facility] Start: 12-30-2024 End: 01-01-2025 Telephone encounter Susu Iraheta CMA [facility] Start: 12-23-2024 ambulatory LUIZA CUELLO Facility: [facility] Start: 12-17-2024 End: 12-17-2024 ambulatory LUIZA CUELLO [facility] Start: 12-17-2024 End: 12-17-2024 Office outpatient visit 15 minutes Luiza Cuello DO Work Phone: [facility] Comment on above: Enterococcus UTI (Pr imary Dx); Recurrent UTI (urinary tract infection) Start: 12-09-2024 End: 12-09-2024 Bamboo flowsheet Kwame Ralph DO Work Phone: [facility] Start: 12-09-2024 End: 12-09-2024 Bamboo flowsheet Kwame Ralph DO Work Phone: [facility] Start: 12-09-2024 End: 12-09-2024 Office outpatient visit 15 minutes Kwame Ralph DO Work Phone: [facility] Comment on above: Menopause (Primary D x); Vasomotor symptoms due to menopause; Hormone disorder; Cystitis Start: 12-09-2024 End: 12-09-2024 ambulatory KWAME RALPH Not Available Start: 11-22-2024 End: 11-22-2024 Telephone encounter Susu Iraheta CMA [facility] Start: 11-22-2024 End: 11-22-2024 ambulatory SAYRA Garza [facility] Start: 11-19-2024 End: 11-19-2024 Office outpatient visit 15 minutes Luiza Cuello DO Work Phone: [facility] Comment on above: Dysuria (Primary Dx) ; Enterococcus UTI Start: 11-19-2024 End: 11-21-2024 Orders Only Shirley VALDES [facility] Comment on above: Pulmonary nodule (Pr imary Dx) Start: 11-15-2024 End: 11-15-2024 Orders Only Kandy Alvarez HANDY MAN-PROJECT PRODUCTION ENGINEER Work Phone: [facility] Comment on above: Other sleep apnea (P rimary Dx) Sleep Lab (HST) Start: 11-14-2024 End: 11-14-2024 Telephone encounter Anne Moncada HANDY MAN-PROJECT PRODUCTION ENGINEER Work Phone: [facility] Start: 11-09-2024 End: 11-09-2024 Telephone encounter Cheyennerosalba [facility] Start: 11-06-2024 End: 11-06-2024 Telephone encounter Susu [facility] Start: 11-05-2024 End: 11-05-2024 Telephone encounter Camille Corley HANDY MAN-PROJECT PRODUCTION ENGINEER Work Phone: [facility] Comment on above: Sleep Lab (Comp PSG/ PAP) Start: 11-04-2024 End: 11-04-2024 ambulatory [facility] Start: 11-04-2024 End: 11-04-2024 Office outpatient new 30 minutes Camille Corley HANDY MAN-PROJECT PRODUCTION ENGINEER Work Phone: [facility] Comment on above: Palpitations (Primar y Dx); Other sleep apnea; Psychosis, unspecified psychosis type ([facility]); Lipid screening; MDD (major depressive disorder), recurrent, severe, with psychosis ([facility]); Tobacco abuse; Screen for colon cancer; Lung nodule seen on imaging study Start: 11-04-2024 End: 11-04-2024 ambulatory [facility] Start: 10-17-2024 End: 10-17-2024 Emergency department patient visit NO PCP NO PCP [facility] Start: 10-08-2024 End: 10-08-2024 Office outpatient visit 15 minutes Melissa Mulligan HANDY MAN-PROJECT PRODUCTION ENGINEER Work Phone: [facility] Comment on above: Palpitations (Primar y Dx); Neurocardiogenic pre-syncope Start: 10-08-2024 ambulatory MELISSA MULLIGAN [facility] Start: 10-07-2024 End: 10-07-2024 Telephone encounter [facility] Start: 10-04-2024 End: 10-04-2024 ambulatory SAYRA VILLELA [facility] Start: 08-30-2024 End: 08-30-2024 ambulatory ADDIE HENRIQUEZ [facility] Start: 08-15-2024 End: 08-15-2024 ambulatory NATALYA MANCINI [facility] Start: 08-14-2024 End: 08-14-2024 ambulatory SAYRA Garza [facility] Start: 07-24-2024 End: 07-24-2024 Telephone encounter [facility] Comment on above: TFTs and Lopressor Start: 07-17-2024 End: 07-17-2024 ambulatory SAYRA Garza [facility] Start: 07-16-2024 End: 07-16-2024 ambulatory [facility] Start: 07-16-2024 End: 07-16-2024 ambulatory [facility] Start: 06-14-2024 End: 06-14-2024 ambulatory [facility] Start: 06-14-2024 End: 06-14-2024 Office outpatient new 45 minutes Addie Henriquez MD Work Phone: [facility] Comment on above: Palpitations (Primar y Dx); Obesity (BMI 30.0-34.9); Intermittent palpitations; SOB (shortness of breath); Chest pain, unspecified type; Snoring Start: 06-13-2024 End: 06-13-2024 Telephone encounter [facility] Start: 06-07-2024 End: 06-07-2024 Chart abstracting Addie Henriquez MD Work Phone: [facility] Start: 06-04-2024 End: 06-04-2024 ambulatory SAYRA Garza [facility] Start: 05-07-2024 End: 05-07-2024 ambulatory SAYRA Garza [facility] Start: 04-25-2024 End: 04-25-2024 ambulatory OLIIVA GONZALEZ [facility] Start: 04-23-2024 End: 04-23-2024 ambulatory SAYRA Garza [facility] Start: 11-30-2023 ambulatory Tenzin Reeves acility:[facility] Start: 09-19-2023 Telephone encounter Orders Sup port User Transcribe [facility] Comment on above: Sleep Lab (LISA G) Start: 08-09-2023 End: 08-09-2023 ambulatory Laine Sternmond Other [employer] Other Start: 08-09-2023 Office outpatient vi sit 15 minutes Laine Marie [facility] Start: 08-08-2023 End: 08-08-2023 ambulatory Emani Keri Other [employer] Other Start: 08-08-2023 Office outpatient vi sit 15 minutes Emani Keri [facility] Start: 05-12-2023 End: 05-12-2023 ambulatory Larry Porterler Other [employer] Other Start: 05-12-2023 Office outpatient vi sit 25 minutes Larry Law [facility] Start: 08-12-2022 End: 08-12-2022 ambulatory JOSE GRISSOM Facility: Start: 05-10-2022 End: 05-10-2022 ambulatory Larry Law Other [employer] Other Start: 05-10-2022 Office outpatient vi sit 25 minutes Larry Law [facility] Start: 09-09-2020 End: 09-10-2020 ambulatory ABEL HERNANDEZ Facility:[facility] Procedures Date Procedure Procedure Detail Performing Clinician Start: 02-12-2025 Urnls dip stick/tabl et rgnt non-auto w/o micrscp Camille Corley HANDY MAN-PROJECT PRODUCTION ENGINEER Work Phone: Start: 02-12-2025 Adult depression scr eening assessment Camille Corley HANDY MAN-PROJECT PRODUCTION ENGINEER Work Phone: Start: 12-17-2024 Follow-up visit Follow-up LUIZA CUELLO Start: 12-17-2024 Adult depression scr eening assessment Luiza Cuello DO Work Phone: Start: 11-19-2024 Urnls dip stick/tabl et rgnt non-auto w/o micrscp Luiza Cuello DO Work Phone: Start: 11-04-2024 Adult depression scr eening assessment Camille Burgosuessler HANDY MAN-PROJECT PRODUCTION ENGINEER Work Phone: Start: 10-08-2024 Follow-up visit Follow-up MELISSA MULLIGAN Start: 06-14-2024 Ecg routine ecg w/le ast 12 lds w/i&r Addie Henriquez MD Work Phone: Start: 06-04-2024 Adult depression scr eening assessment Addie Henriquez MD Work Phone: Start: 09-09-2020 ANESTH LOWER ARM SURGERY MAGDA ALTENHOF Start: 09-09-2020 Neuroplasty &/transp os median nrv carpal tunne ABEL Alvaradorick LUCIA Plan of Treatment Date Care Activity Detail Author Start: 04-15-2026 Adult BMI Screening Adult BMI Screening [facility] Start: 04-15-2026 Tobacco Screening Tobacco Screening [facility] Start: 02-12-2026 Adult BMI Screening Adult BMI Screening [facility] Start: 02-12-2026 Depression Screening Depression Screening [facility] Start: 01-28-2026 Adult BMI Screening Adult BMI Screening [facility] Start: 01-28-2026 Tobacco Screening Tobacco Screening [facility] Start: 01-19-2026 Adult BMI Screening Adult BMI Screening [facility] Start: 01-19-2026 Tobacco Screening Tobacco Screening [facility] Start: 01-14-2026 Adult BMI Screening Adult BMI Screening [facility] Start: 01-14-2026 Tobacco Screening Tobacco Screening [facility] Start: 01-09-2026 Adult BMI Screening Adult BMI Screening [facility] Start: 01-09-2026 Tobacco Screening Tobacco Screening [facility] Start: 01-01-2026 Adult BMI Screening Adult BMI Screening [facility] Start: 12-31-2025 Tobacco Screening Tobacco Screening [facility] Start: 12-17-2025 Adult BMI Screening Adult BMI Screening [facility] Start: 12-17-2025 Depression Screening Depression Screening [facility] Start: 12-17-2025 Tobacco Screening Tobacco Screening [facility] Start: 11-22-2025 Adult BMI Screening Adult BMI Screening [facility] Start: 11-22-2025 Tobacco Screening Tobacco Screening [facility] Start: 11-19-2025 Adult BMI Screening Adult BMI Screening [facility] Start: 11-19-2025 Tobacco Screening Tobacco Screening [facility] Start: 11-04-2025 Adult BMI Screening Adult BMI Screening [facility] Start: 11-04-2025 Depression Screening Depression Screening [facility] Start: 11-04-2025 Tobacco Screening Tobacco Screening [facility] Start: 10-13-2025 End: 01-09-2026 CT Chest WO contrast CT chest without contrast Imaging Routine Lung nodule seen on imaging study Expected: 10/13/2025 (Approximate), Expires: 01/09/2026 [facility] Work Phone: Comment on above: Expected: 10/13/2025 (Approximate), Expi res: 01/09/2026 Start: 10-08-2025 Adult BMI Screening Adult BMI Screening [facility] Start: 10-08-2025 Tobacco Screening Tobacco Screening [facility] Start: 10-04-2025 Tobacco Screening Tobacco Screening [facility] Start: 08-14-2025 Adult BMI Screening Adult BMI Screening [facility] Start: 07-17-2025 End: 07-17-2025 Patient encounter procedure 07/17/2025 3:30 PM EST Off ice Visit [facility] [address] [place] [address] Yvette Suh, DO [address] [address] [facility] Start: 07-17-2025 Adult BMI Screening Adult BMI Screening [facility] Start: 07-17-2025 Tobacco Screening Tobacco Screening [facility] Start: 07-10-2025 End: 07-10-2025 Patient encounter procedure 07/10/2025 3:15 PM EST Off ice Visit [facility] [address] [place] [address] Yvette Suh DO [address] [facility] [address] [place] [address] [facility] Start: 06-14-2025 Adult BMI Screening Adult BMI Screening [facility] Start: 06-14-2025 Tobacco Screening Tobacco Screening [facility] Start: 06-04-2025 Adult BMI Screening Adult BMI Screening [facility] Start: 06-04-2025 Depression Screening Depression Screening [facility] Start: 06-04-2025 Tobacco Screening Tobacco Screening [facility] Start: 05-29-2025 End: 05-29-2025 Admission to same day surgery center 05/29/2025 3:00 PM EDT - 05/29/2025 4:00 PM EDT Surgery [facility] [address] [facility] [place] [phone] Lauryn Evans MD [address] [facility] [place] [address] ESOPHAGOGASTRODUODENOSCOPY DIAGNOSTIC [30826 (CPT )] [facility] Comment on above: ESOPHAGOGASTRODUODENOSCOPY DIAGNOSTIC [4 3235 (CPT )] Start: 05-29-2025 End: 05-29-2025 Colonoscopy COLONOSCOPY DIAGNOSTIC / SCREENING Chronic idiopathic constipation Epigastric pain (R10.13) GERD, unspecified (K21.9) 05/29/2025 3:00 PM EDT [facility] Start: 05-29-2025 End: 05-29-2025 Esophagogastroduodenoscopy transoral diagnostic ESOPHAGOGASTRODUODENOSCOPY DIAGNOSTIC Chronic idiopathic constipation Epigastric pain (R10.13) GERD, unspecified (K21.9) 05/29/2025 3:00 PM EDT [facility] Start: 05-29-2025 Subsequent hospital visit by physician 05/29/2025 3:00 PM EDT Hospital Encounter [facility] [address] [facility] [place] [phone] Lauryn Evans MD [address] [facility] [place] [address] [facility] Start: 05-22-2025 End: 05-22-2025 Patient encounter procedure 05/22/2025 12:30 PM EDT Appointment [facility] Pre and Post OP [address] [facility] [place] [phone] [facility] Pre and Post OP Start: 05-21-2025 End: 05-21-2025 Patient encounter procedure 05/21/2025 3:40 PM EDT Off ice Visit [facility] [address] [place] [address] [place] [phone] Camille Corley, HANDY MAN-PROJECT PRODUCTION ENGINEER [address] [facility] [address], [place], [place] [phone] [facility] Start: 05-08-2025 End: 05-08-2025 Patient encounter procedure 05/08/2025 11:00 AM EDT Office Visit [facility] [address] [place] [id number] Yvette Suh, [address] [facility] [address] [place] [address] [facility] Start: 05-05-2025 Influenza vaccination Influenza Vaccine [facility] Start: 03-10-2025 End: 03-10-2025 Patient encounter procedure [facility] Start: 03-06-2025 End: 03-06-2025 Clinical Support 03/06/2025 8:00 PM EDT Clinical Support [facility] [address] [place] [phone] Yvette Suh, DO [address] [address] [facility] Start: 02-12-2025 End: 02-12-2025 Patient encounter procedure 02/12/2025 2:40 PM EDT Off ice Visit [facility] [address] [place] [address] [place] [phone] Camille Corley, HANDY MAN-PROJECT PRODUCTION ENGINEER [address] [facility] [address], [place], [place] [phone] [facility] Start: 02-08-2025 End: 02-08-2025 Clinical Support 02/08/2025 8:00 PM EDT Clinical Support [facility] [address] [place] [phone] Yvette Suh, DO [address] [address] [facility] Start: 01-14-2025 End: 01-14-2025 Patient encounter procedure 01/14/2025 12:30 PM EDT Office Visit [facility] [address] [address] Wendy Johnson HANDY MAN-PROJECT PRODUCTION ENGINEER [address] [address] [facility] Start: 01-13-2025 Subsequent hospital visit by physician 01/13/2025 2:30 PM EDT Hospital Encounter [facility] [address] [place] [address] [facility] Start: 01-13-2025 End: 01-13-[address] [facility] Start: 01-09-2025 End: 01-09-2025 Patient encounter procedure 01/09/2025 3:00 PM EDT Off ice Visit [facility] [address] [place] [address] Yvette Suh, DO [address] [address] [facility] Start: 01-08-2025 End: 01-08-2025 Clinical Support 01/08/2025 4:00 PM EDT Clinical Support [facility] [address] [place] [address] [facility] Start: 01-06-2025 End: 01-06-2025 Patient encounter procedure 01/06/2025 8:10 AM EDT Off ice Visit [facility] [address] [place] [phone] Kwame Rosas, DO [address] [facility] [place] [address] [facility] Start: 01-01-2025 End: 01-01-2026 CT Abdomen and Pelvis WO contrast CT abdomen and pelvis without contrast Imaging Routine Left sided abdominal pain Stool mucus Expected: 01/01/2025, Expires: 01/01/2026 [facility] [employer] Comment on above: Expected: 01/01/2025, Expires: Start: 01-01-2025 End: 01-01-2026 XR Abdomen AP [facility] Work Phone: Comment on above: Expected: 01/01/2025, Expires: Start: 12-17-2024 End: 12-17-[address] [facility] Start: 12-09-2024 End: 12-09-2025 C-peptide C-peptide Lab Routine Menopause Vasomotor symptoms due to menopause Hormone disorder Expected: 12/09/2024 (Approximate), Expires: 12/09/2025 [facility] Comment on above: Expected: 12/09/2024 (Approximate), Expi res: 12/09/2025 Start: 12-09-2024 End: 12-09-2025 Cortisol free Cortisol, free Lab Routine Menopause Vasomotor symptoms due to menopause Hormone disorder Expected: 12/09/2024 (Approximate), Expires: 12/09/2025 [facility] Comment on above: Expected: 12/09/2024 (Approximate), Expi res: 12/09/2025 Start: 12-09-2024 End: 12-09-2025 Glucose [Mass/volume] in Serum or Plasma Glucose, random Lab Routine Menopause Vasomotor symptoms due to menopause Hormone disorder Expected: 12/09/2024 (Approximate), Expires: 12/09/2025 [facility] Comment on above: Expected: 12/09/2024 (Approximate), Expi res: 12/09/2025 Start: 12-09-2024 End: 12-09-2025 Insulin, total Insulin, total Lab Routine Menopause Vasomotor symptoms due to menopause Hormone disorder Expected: 12/09/2024 (Approximate), Expires: 12/09/2025 [facility] Comment on above: Expected: 12/09/2024 (Approximate), Expi res: 12/09/2025 Start: 12-09-2024 End: 12-09-2025 Serotonin serum Serotonin serum Lab Routine Menopause Vasomotor symptoms due to menopause Hormone disorder Expected: 12/09/2024 (Approximate), Expires: 12/09/2025 [facility] Comment on above: Expected: 12/09/2024 (Approximate), Expi res: 12/09/2025 Start: 12-09-2024 End: 12-09-2025 Thyroglobulin Thyroglobulin Lab Routine Menopause Vasomotor symptoms due to menopause Hormone disorder Expected: 12/09/2024 (Approximate), Expires: 12/09/2025 [facility] Comment on above: Expected: 12/09/2024 (Approximate), Expi res: 12/09/2025 Start: 12-09-2024 End: 12-09-2025 Thyroglobulin Antibody Thyroglobulin Antibody Lab Routine Menopause Vasomotor symptoms due to menopause Hormone disorder Expected: 12/09/2024 (Approximate), Expires: 12/09/2025 [facility] Comment on above: Expected: 12/09/2024 (Approximate), Expi res: 12/09/2025 Start: 12-09-2024 End: 12-09-2025 Thyrotropin [Units/volume] in Serum or Plasma [facility] Comment on above: Ordered: 12/09/2024 Expected: 12/09/2024 (Approximate), Expires: 12/09/2025 Start: 12-09-2024 End: 12-09-2024 Patient encounter procedure 12/09/2024 1:10 PM EDT Off ice Visit [facility] [address] [place] [phone] Kwame Rosas DO [address] [facility] [place] [address] Arrived [facility] Comment on above: Arrived Start: 12-02-2024 End: 12-02-2024 Clinical Support 12/02/2024 8:00 PM EDT Clinical Support [facility] [address] [place] [phone] [facility] Start: 10-08-2024 End: 10-08-2024 Patient encounter procedure 10/08/2024 3:30 PM EST Off ice Visit [facility] [address] [facility] [address] [place] [address] Melissa Mulligan, HANDY MAN-PROJECT PRODUCTION ENGINEER [address] [place] [phone] [facility] Start: 08-15-2024 End: 08-15-2024 Patient encounter procedure 08/15/2024 9:[address] [facility] [address] [place] [address] [facility] Start: 07-16-2024 End: 07-16-2024 Patient encounter procedure 07/16/2024 9:[address] [facility] [address] [place] [address] [facility] Start: 07-16-2024 End: 07-16-2024 Patient encounter procedure [facility] Start: 06-14-2024 End: 06-14-2025 Echo complete W/O contrast Echo complete W/O contrast Echocardiography Routine SOB (shortness of breath) Expected: 06/14/2024, Expires: 06/14/2025 [employer] Work Phone: Comment on above: Expected: 06/14/2024, Expires: Start: 06-14-2024 End: 06-14-2025 Exercise stress test study Stress test (exercise only) Cardiac Services Routine Chest pain, unspecified type Expected: 06/14/2024, Expires: 06/14[facility] Comment on above: Expected: 06/14/2024, Expires: Start: 06-14-2024 End: 06-14-2025 Holter monitor study Holter monitor 24-48 hour Cardiac Services Routine SOB (shortness of breath) Expected: 06/14/2024, Expires: 06/14/[facility] Comment on above: Expected: 06/14/2024, Expires: Start: 06-14-2024 End: 06-14-2025 XR Chest PA and Lateral X-ray chest 2 views Imaging Routine SOB (shortness of breath) Expected: 06/14/2024, Expires: 06/14/2025 [facility] [employer] [facility] Comment on above: Expected: 06/14/2024, Expires: Start: 06-14-2024 End: 06-14-2024 Patient encounter procedure 06/14/2024 9:30 AM EDT Off ice Visit [facility] [address] [place] [address] Addie Henriquez MD [address] [place] [address] [facility] Start: 05-05-2024 Influenza vaccination Influenza Vaccine [facility] Start: 04-22-2024 Adult BMI Screening Adult BMI Screening [facility] Start: 04-22-2024 Tobacco Screening Tobacco Screening [facility] Start: 05-05-2023 Influenza vaccination Influenza Vaccine [facility] Start: 2023 Administration of varicella zoster vaccine Zoster (Shingles) Vaccine (1 of 2) [facility] Start: 1992 DTaP,Tdap and Td Vaccines (1 - Tdap) DTaP,Tdap and Td Vaccines (1 - Tdap) [facility] Start: 1991 Adult BMI Follow Up Plan Adult BMI Follow Up Plan [facility] Start: 1985 Depression Screening Depression Screening [facility] Start: 1973 Tobacco Counseling Tobacco Counseling [facility] End: 11-19-2025 Bacteria identified in Urine by Culture Urine culture (clean catch) Microbiology Routine Dysuria Enterococcus UTI 1 Occurrences starting 11/19/2024 until 11/19/2025 [facility]: Comment on above: 1 Occurrences starting 11/19/2024 until 11/19/2025 End: 12-17-2025 Bacteria identified in Urine by Culture Urine culture (clean catch) Microbiology Routine Enterococcus UTI 1 Occurrences starting 12/17/2024 until 12/17/2025 [facility] Comment on above: 1 Occurrences starting 12/17/2024 until 12/17/2025 Bacteria identified in Urine by Culture Urine culture (clean catch) Microbiology Routine Urinary frequency 02/12/2025 3:10 PM EDT [facility] Work [facility]: End: 01-01-2026 C difficile by PCR C difficile by PCR Lab Routine Left sided abdominal pain Stool mucus 1 Occurrences starting 01/01/2025 until 01/01/2026 [employer] Comment on above: 1 Occurrences starting 01/01/2025 until 01/01/2026 End: 11-04-2025 Colonoscopy Colonoscopy GI Routine Scree n for colon cancer 1 Occurrences starting 11/04/2024 until 11/04/2025 [facility] Comment [facility] above: 1 Occurrences starting 11/04/2024 until 11/04/2025 End: 01-14-2026 Colonoscopy Colonoscopy GI Routine Drug-induced constipation Rectal bleeding 1 Occurrences starting 01/14/2025 until 01/14/2026 [employer] Work Phone: Comment on above: 1 Occurrences starting 01/14/2025 until 01/14/2026 DHEA-sulfate DHEA-sulfate Lab Routine Menopause Vasomotor symptoms due to menopause Hormone disorder Ordered: 12/09/2024 [facility] [employer] Comment on above: Ordered: 12/09/2024 End: 01-14-2026 Esophagogastroduodenoscopy EGD GI Routine Epigastric pain Gastroesophageal reflux disease, unspecified whether esophagitis present 1 Occurrences starting 01/14/2025 until 01/14/2026 [employer] Comment on above: 1 Occurrences starting 01/14/2025 until 01/14/2026 Estradiol Estradiol Lab Ro utine Menopause Vasomotor symptoms due to menopause Hormone disorder Ordered: 12/09/2024 [facility] [employer] Work Phone: Comment on above: Ordered: 12/09/2024 Estrone Estrone Lab Rout ine Menopause Vasomotor symptoms due to menopause Hormone disorder Ordered: 12/09/2024 [facility] Comment on above: Ordered: 12/09/2024 Ferritin [Mass/volum e] in Serum or Plasma Ferritin Lab Routine Menopause Vasomotor symptoms due to menopause Hormone disorder Ordered: 12/09/2024 [facility] Comment on above: Ordered: 12/09/2024 End: 10-08-2025 Follicle stimulating hormone Follicle stimulating horm one Lab Routine Neurocardiogenic pre-syncope 1 Occurrences starting 10/08/2024 until 10/08/2025 [employer] Work Phone: Comment on above: 1 Occurrences starting 10/08/2024 until 10/08/2025 End: 01-01-2026 Gastrointestinal pathogens DNA and RNA panel - Stool by ANTON with non-probe detection GI Panel(stool pathogen panel) Lab Routine Left sided abdominal pain Stool mucus 1 Occurrences starting 01/01/2025 until 01/01/2026 [employer] Comment on above: 1 Occurrences starting 01/01/2025 until 01/01/2026 Hemoglobin A1c/Hemoglobin.total in Blood Hemoglobin A1c Lab Routine Menopause Vasomotor symptoms due to menopause Hormone disorder Ordered: 12/09/2024 [employer] Comment on above: Ordered: 12/09/2024 End: 11-15-2025 Home sleep study Home sleep study Sleep Cente r Routine Other sleep apnea 1 Occurrences starting 11/15/2024 until 11/15/2025 [employer] Work Phone: Comment on above: 1 Occurrences starting 11/15/2024 until 11/15/2025 End: 06-14-2025 Natriuretic peptide B [Mass/volume] in Blood BNP Lab Routine SOB (shortness of breath) 1 Occurrences starting 06/14/2024 until 06/14/2025 [employer] Comment on above: 1 Occurrences starting 06/14/2024 until 06/14/2025 End: 11-04-2025 Polysomnography 4 or more parameters with PAP titration Polysomnography 4 or more parameters with PAP titration Sleep Center Routine Other sleep apnea 1 Occurrences starting 11/04/2024 until 11/04/2025 [employer] Comment on above: 1 Occurrences starting 11/04/2024 until 11/04/2025 End: 01-09-2026 Polysomnography 4 or more parameters with PAP titration Polysomnography 4 or more parameters with PAP titration Sleep Center Routine Obstructive sleep apnea syndrome 1 Occurrences starting 01/09/2025 until 01/09/2026 [employer] Comment on above: 1 Occurrences starting 01/09/2025 until 01/09/2026 Progesterone Progesterone Lab Routine Menopause Vasomotor symptoms due to menopause Hormone disorder Ordered: 12/09/2024 [employer] Comment on above: Ordered: 12/09/2024 End: 11-04-2025 PSG Diagnostic PSG Diagnostic Sleep Center Routine Other sleep apnea 1 Occurrences starting 11/04/2024 until 11/04/2025 [employer] Work Phone: Comment on above: 1 Occurrences starting 11/04/2024 until 11/04/2025 End: 01-09-2026 PSG Diagnostic PSG Diagnostic Sleep Center Routine Obstructive sleep apnea syndrome 1 Occurrences starting 01/09/2025 until 01/09/2026 [employer] Comment on above: 1 Occurrences starting 01/09/2025 until 01/09/2026 End: 11-19-2025 Pulmonary function test Spirometry (Flow Volume Loop) w/ DLCO (diffusion study) Pulmonary function test Spirometry (Flow Volume Loop) w/ DLCO (diffusion study) PFT Routine Pulmonary nodule 1 Occurrences starting 11/20/2024 until 11/19/2025 [employer] Phone: Comment on above: 1 Occurrences starting 11/20/2024 until 11/19/2025 Sex hormone binding globulin Sex hormone binding globulin Lab Routine Menopause Vasomotor symptoms due to menopause Hormone disorder Ordered: 12/09/2024 [facility] [employer] Comment on above: Ordered: 12/09/2024 T3, reverse T3, reverse Lab Routine Menopause Vasomotor symptoms due to menopause Hormone disorder Ordered: 12/09/2024 [facility] [employer] Comment on above: Ordered: 12/09/2024 TESTOSTERONE, FREE TESTOSTERONE, FREE Lab Routine Menopause Vasomotor symptoms due to menopause Hormone disorder Ordered: 12/09/2024 [facility] [employer] Comment on above: Ordered: 12/09/2024 Testosterone, free, total Testos terone, free, total Lab Routine Menopause Vasomotor symptoms due to menopause Hormone disorder Ordered: 12/09/2024 [facility] [employer] Comment on above: Ordered: 12/09/2024 Thyroid peroxidase antibody Thyr oid peroxidase antibody Lab Routine Menopause Vasomotor symptoms due to menopause Hormone disorder Ordered: 12/09/2024 [facility] [employer] Comment on above: Ordered: 12/09/2024 End: 07-24-2025 Thyroid profile includes TSH FT4 Thyroid profile includes TSH FT4 Lab Routine Intermittent palpitations Holter monitor, abnormal 1 Occurrences starting 07/24/2024 until 07/24/2025 [employer] Phone: Comment on above: 1 Occurrences starting 07/24/2024 until 07/24/2025 Thyroxine (T4) free [Mass/volume] in Serum or Plasma T4, free Lab Routine Menopause Vasomotor symptoms due to menopause Hormone disorder Ordered: 12/09/2024 [facility] Comment on above: Ordered: 12/09/2024 Triiodothyronine (T3 ) Free [Mass/volume] in Serum or Plasma T3, free Lab Routine Menopause Vasomotor symptoms due to menopause Hormone disorder Ordered: 12/09/2024 [facility] Comment on above: Ordered: 12/09/2024 End: 12-17-2025 Urinalysis Urinalysis (clean catch) Lab Routine Enterococcus UTI 1 Occurrences starting 12/17/2024 until 12/17/2025 [employer] Work Phone: Comment on above: 1 Occurrences starting 12/17/2024 until 12/17/2025 Vitamin D 1,25 dihydroxy Vitamin D 1,25 dihydroxy Lab Routine Menopause Vasomotor symptoms due to menopause Hormone disorder Ordered: 12/09/2024 [facility] Comment on above: Ordered: 12/09/2024 Immunizations Immunization Date Immunization Notes Care Provider Luis lindsey 06-13-2019 influenza virus vaccine, unspecified formulation Orders Transcribe [facility] 12-13-2014 tetanus toxoid, reduced diphtheria toxoid, and acellular pertussis vaccine, adsorbed Larry Law Other [employer] Other Payers Date Payer Category Payer Commercial Managed C are - PPO [id number] 2024 Unknown [id number] 2023 Self-pay 2015 Commercial [employer] are - POS [employer] [id number] 2015 Private Health Insurance [id number] 2006 Private Health Insurance [id number] 1973 Unknown [id number] 2.16.840.1.063235.3.579. 2.647 1973 Unknown [id number] 2.16.840.1.674594.3.579. 2.593 1973 Unknown [id number] 2.16840.1.396896.3.579. 2.1259 1973 Unknown [id number] 2.16840.1.505475.3.579. 2.1286 1973 Unknown [id number] 2.16840.1.303173.3.579. 2.1286 1973 Unknown [id number] 2.16.840.1.514642.3.579. 2.1286 1973 Unknown [id number] 2.16.840.1.758823.3.579. 2.1286 1973 Unknown [id number] 2.16840.1.273528.3.579. 2.727 1973 Unknown [id number] 2.16.840.1.631578.3.579. 2.727 1973 Unknown [id number] 2.16.840.1.253819.3.579. 2.1286 1973 Unknown [id number] 2.16.840.1.645251.3.579. 2.1286 1973 Unknown [id number] 2.16840.1.092740.3.579. 2.1286 1973 Unknown [id number] 2.16840.1.884206.3.579. 2.1285 1973 Unknown [id number] 2.840.1.604407.3.579. 2.1285 1973 Unknown [id number] 2.16840.1.185574.3.579. 2.1285 1973 Unknown [id number] 2.840.1.335712.3.579. 2.1285 1973 Unknown [id number] 2.840.1.509361.3.579. 2.1285 1973 Unknown [id number] 2.0.1.067192.3.579. 2.1285 1973 Unknown [id number] 2.840.1.197329.3.579. 2.1285 1973 Unknown [id number] 2.0.1.746952.3.579. 2.1285 1973 Unknown [id number] 2.0.1.582379.3.579. 2.1285 1973 Unknown [id number] 2.0.1.932939.3.579. 2.1285 1973 Unknown [id number] 2.840.1.828334.3.579. 2.1285 1973 Unknown [id number] 2.0.1.406083.3.579. 2.1285 1973 Unknown [id number] 2.840.1.284569.3.579. 2.1285 1973 Unknown [id number] 2.0.1.002221.3.579. 2.1285 1973 Unknown [id number] 2.840.1.315591.3.579. 2.1285 1973 Unknown [id number] 2.840.1.860497.3.579. 2.1285 1973 Unknown [id number] 2.16.840.1.491033.3.579. 2.1285 1973 Unknown [id number] 2.16.840.1.842600.3.579. 2.1285 1973 Unknown [id number] 2.16.840.1.375782.3.579. 2.1285 1973 Unknown [id number] 2.16.840.1.196581.3.579. 2.1285 1973 Unknown [id number] 2.16.840.1.626208.3.579. 2.1285 1973 Unknown [id number] 2.16840.1.775460.3.579. 2.1285 1973 Unknown [id number] 2.16840.1.189469.3.579. 2.1285 1973 Unknown [id number] 2.840.1.494369.3.579. 2.1285 1973 Unknown [id number] 2.840.1.617990.3.579. 2.1285 1973 Unknown [id number] 2.16840.1.784672.3.579. 2.1285 1973 Unknown [id number] 2.16840.1.509177.3.579. 2.1285 1973 Unknown [id number] 2.16840.1.163825.3.579. 2.1285 1973 Unknown [id number] 2.16840.1.700924.3.579. 2.128 1959 Private Health Insurance [id number] Unknown [id number] 2.16840.1.755548.3.579. 2.531 Social History Date Type Detail Facility Start: 09-15-2020 End: 10-04-2024 Sex Assigned At [facility] Start: 06-14-2024 Tobacco smoking status DEIS Smokes tobacco daily [facility] Start: 09-04-1988 End: 09-18-2024 History of tobacco use Cigarette Smoker [facility] Start: 06-14-2024 End: 01-09-2025 Tobacco use and exposure Smokeless tobacco non-user [facility] Start: 10-04-2024 End: 04-15-2025 Alcoholic beverage intake Ex-drinker (finding) [facility] Start: 09-15-2020 End: 10-04-2024 History of Social function [facility] Adolescent depressio n screening assessment 3 [facility] Start: 03-17-2018 End: 06-14-2024 Tobacco Comment chews nicotine gum [facility] Start: 03-17-2018 Alcohol Comment occasionally [facility] Start: 1975 Sex assigned at Female [facility] Start: 04-09-2015 Sex Female (finding) [facility] Start: 05-29-2020 Gender identity Identifies as female gender (finding) [facility] Start: 05-29-2020 Sexual orientation Heterosexual (finding) [facility] Start: 10-08-2024 End: 01-09-2025 Tobacco smoking status NHIS Ex-smoker [facility] Start: 09-04-1988 End: 09-18-2024 History of tobacco use Current smoker [facility] Tobacco smoking stat us DEIS Tobacco smoking consumption unknown [facility] Start: 1975 Sex assigned at Not on file [facility] Sexual Orientation [facility] Goals Date Patient Goal Desired Activity /State Personal health goal Clinical Notes 05-10-2022 to 04-15-2025 Telephone Encounter - LUCIO Baugh - 04/15/2025 11:48 AM EDTTelephone Encounter - Yvette Suh DO - 04/15/2025 11:48 AM EDTTelephone Encounter - Shirley Zayas Ortega - 04/15/2025 11:48 AM EDT Note Date & Type Note Facility 04-15-2025 Miscellaneous Notes Patient saw AD today for MELISSA. Per AD, patient needs to follow up with SE for shortness of breath. Patient was last seen with SE on 01/09/2025 for the following listed below. Patient is scheduled for 07/10/2025 with SE in [place]. Patient needs to know if she should have the PFT as per SE's last note she was told that it was not needed at this time. ASSESSMENT 1. Sleep-related breathing disorder with snoring highly suspicious for MELISSA 2. Daytime sleepiness with morning headache concerning for MELISSA 3. Insomnia 4. Bilateral pulmonary nodules, greatest 5 mm. Seen October 2024 5. Tobacco user PLAN I have personally reviewed the patient's most recent chest imaging and interpreted it independently. These findings were discussed with the patient. Repeat CT scan of the chest is indicated in 12 months. Order placed in anticipated in October of 2025 Advised patient she does not need to obtain PFT at this time given lack of respiratory symptoms No role for inhalers at present Reviewed sleep-related symptoms. Agreed highly suspicious for underlying obstructive sleep apnea or sleep disorder. Rx placed for sleep study and Pap titration. All questions answered to her satisfaction Will see back in clinic in 6 months or earlier if needed. The patient was encouraged to call me with any concerns prior. Last visit she clearly stated no respiratory symptoms so that is why it was not recommended that she have PFT. If she has shortness of breath now, would be reasonable to do as that would be new. [facility] [facility] called patient and left voicemail informing her that per SE: Yvette Suh DO Physician Signed 1222 Last visit she clearly stated no respiratory symptoms so that is why it was not recommended that she have PFT. If she has shortness of breath now, would be reasonable to do as that would be new. [employer] [facility] provided patient with central scheduling's contact information and our callback number for any questions patient may have in regard to this. [employer] [facility] called patient and left voicemail informing her that per SE: Yvette Suh DO Physician Signed 1222 Last visit she clearly stated no respiratory symptoms so that is why it was not recommended that she have PFT. If she has shortness of breath now, would be reasonable to do as that would be new. [employer] provided patient with central scheduling's contact information and our callback number for any questions patient may have in regard to this. documented in this encounter [facility] 04-15-2025 Telephone encounter Note Patient saw AD today for MELISSA. Per AD, patient needs to follow up with SE for shortness of breath. Patient was last seen with SE on 01/09/2025 for the following listed below. Patient is scheduled for 07/10/2025 with SE in [place]. Patient needs to know if she should have the PFT as per SE's last note she was told that it was not needed at this time. ASSESSMENT 1. Sleep-related breathing disorder with snoring highly suspicious for MELISSA 2. Daytime sleepiness with morning headache concerning for MELISSA 3. Insomnia 4. Bilateral pulmonary nodules, greatest 5 mm. Seen October 2024 5. Tobacco user PLAN I have personally reviewed the patient's most recent chest imaging and interpreted it independently. These findings were discussed with the patient. Repeat CT scan of the chest is indicated in 12 months. Order placed in anticipated in October of 2025 Advised patient she does not need to obtain PFT at this time given lack of respiratory symptoms No role for inhalers at present Reviewed sleep-related symptoms. Agreed highly suspicious for underlying obstructive sleep apnea or sleep disorder. Rx placed for sleep study and Pap titration. All questions answered to her satisfaction Will see back in clinic in 6 months or earlier if needed. The patient was encouraged to call me with any concerns prior. [facility] 04-15-2025 Telephone encounter Note Last visit she clearly stated no respiratory symptoms so that is why it was not recommended that she have PFT. If she has shortness of breath now, would be reasonable to do as that would be new. [facility] 04-15-2025 Telephone encounter Note [facility] Head called patient and left voicemail informing her that per SE: Yvette Suh DO Physician Signed 1222 Last visit she clearly stated no respiratory symptoms so that is why it was not recommended that she have PFT. If she has shortness of breath now, would be reasonable to do as that would be new. [employer] Head provided patient with central scheduling's contact information and our callback number for any questions patient may have in regard to this. [facility] 04-15-2025 Telephone encounter Note [facility] Head called patient and left voicemail informing her that per SE: Yvette Suh DO Physician Signed 1222 Last visit she clearly stated no respiratory symptoms so that is why it was not recommended that she have PFT. If she has shortness of breath now, would be reasonable to do as that would be new. [employer] Head provided patient with central scheduling's contact information and our callback number for any questions patient may have in regard to this. [facility] 04-15-2025 History of Presen t illness Narrative Images from the original note were not included. Images from the original note were not included. CHIEF COMPLAINT: Marianna Stiles is a 50 y.o. female who presents to [facility] in follow-up for MELISSA The patient was unaccompanied. She is a patient of Dr. Suh. INTERVAL EVENTS Since last seen, Ms. Stiles reports She received her CPAP machine a few months ago. Generally it is going quite well. She reports that she is sleeping better overnight. Snoring is resolved with the use of PAP.She is feeling better during the day with more energy. She denies sleepiness with driving. She reports that she is exercising frequently. She is running her bike 12 miles a day. She reports that despite this she is not losing weight. She reports that she is not doing well with her diet. The only problem that she is having is with the humidity. She is getting moisture in her mask. She is using a nasal mask She feels that the pressure on the machine is comfortable. In the beginning she did have instances where it felt too low or too high but now it feels good. She does endorse shortness of breath which is new. She noticed it when she was blowing bubbles for the dogs She has quit smoking Saxon Sleepiness Scale: Sitting and Reading: Slight Chance Watching TV: (!) Moderate Chance Sitting inactive in a public place (theater, meeting): Slight Chance As a passenger in a car for an hour without a break: Slight Chance Lying down in the afternoon to rest: (!) High Chance Sitting and talking to someone: Never Sitting quietly after lunch (without alcohol): Slight Chance In a car, while stopped for a few minutes in traffic: Never Total: 9 I personally reviewed this data PAST MEDICAL HISTORY: Patient Active Problem List Diagnosis MDD (major depressive disorder), recurrent, severe, with psychosis ([facility]) ADHD (attention deficit hyperactivity disorder), inattentive type PTSD (post-traumatic stress disorder) Psychosis ([facility]) Suicidal ideation Palpitations Obstructive sleep apnea syndrome Lipid screening Tobacco abuse Lung nodule seen on imaging study Enterococcus UTI E. coli UTI (urinary tract infection) Left sided abdominal pain Abnormal stools Urinary frequency Past Medical History: Diagnosis Date ADHD (attention deficit hyperactivity disorder) Allergic Anxiety Asthma Depression Eczema GERD (gastroesophageal reflux disease) PTSD (post-traumatic stress disorder) Past Surgical History: Procedure Laterality Date BREAST BIOPSY CARPAL TUNNEL RELEASE HYSTERECTOMY 2013 ALLERGIES: Allergies Allergen Reactions Benadryl [Diphenhydramine Hcl] [place] like I was dying MEDICATIONS: Current Outpatient Medications on File Prior to Visit Medication Sig Dispense Refill FLUoxetine (PROzac) 20 mg capsule Take 2 capsules (40 mg total) by mouth in the morning. 60 capsule 0 linaCLOtide (LINZESS) 145 mcg capsule Take 1 capsule (145 mcg total) by mouth every morning before breakfast. 90 capsule 3 omeprazole (PriLOSEC) 20 mg capsule Take 1 capsule (20 mg total) by mouth every morning before breakfast. 30 capsule 2 traZODone (DESYREL) 50 mg tablet TAKE 1 TABLET(50 MG) BY MOUTH EVERY NIGHT NEEDED FOR SLEEP 90 tablet 0 bisacodyL (DULCOLAX) 5 mg EC tablet Please follow the office colonoscopy prep instructions. (Patient not taking: Reported on 04/15/2025) 4 tablet 0 LORazepam (ATIVAN) 0.5 mg tablet Take 1 tablet (0.5 mg total) by mouth daily as needed for anxiety. (Patient not taking: Reported on 04/15/2025) 10 tablet 0 peg 3350-sod sulf,[id number]-[id number]-nnm 178.7-7.3-0.5 gram recon soln Please follow colonoscopy prep instructions. (Patient not taking: Reported on 04/15/2025) 355 each 0 No current facility-administered medications on file prior to visit. PHYSICAL EXAMINATION: BP 125/74 (BP Site: Right Arm, BP Postition: Sitting) Pulse 77 Ht 160 cm (5' 2.99 ) Wt 87.8 kg (193 lb 8 oz) SpO2 94% BMI 34.29 kg/m General appearance: no acute distress. Eyes: no conjunctival erythema, no scleral icterus. Ears, Nose, Mouth and Throat: external ears unremarkable, external nose and mouth unremarkable Neck: trachea position midline. Respiratory: normal work of breathing Skin: No rash/ lesions/ulcers/ induration/subcutaneous nodules in visible regions. Neurologic: face symmetric at rest and activation, no dysarthria, no tremor or abnormal movements Mental Status: Cognitive: Alert and oriented. Insight good. Judgment good. DATA: I personally reviewed the following: Lab Results Component Value Date WBC 7.2 10/17/2024 HGB 14.3 10/17/2024 HCT 41.8 10/17/2024 MCV 86 10/17/2024 PLT 336 10/17/2024 No results found for: FERRITIN Chemistry Component Value Date/Time K 4.0 10/17/20241936 CL 104 10/17/20241936 CO2 26 10/17/20241936 BUN 14 10/17/20241936 CREATININE 0.94 10/17/20241936 GLU 84 01/19/2025 1802 Component Value Date/Time CALCIUM 9.0 10/17/20241936 ALKPHOS 79 10/17/20241936 AST 19 10/17/20241936 ALT 20 10/17/20241936 Lab Results Component Value Date TSH 0.83 08/30/2024 Echo complete W/ contrast Result Date: 07/16/2024 Left Ventricle: Left ventricle appears normal in size. Systolic function is normal with an ejection fraction of 60-65%. The quantitative EF by 2D Roque biplane is 62%. No obvious regional wall motion abnormalities. No significant valvular abnormalities noted Sleep Study Results: Polysomnogram on 2025-01-25 (AHI (3%)=16.6 events/hour; AHI (4%)=6.0 events/hour; Ravi SpO2=87.0%; Nkfqcb=259.0 lbs; BMI=34.0 kg/m2) DIAGNOSIS: ? Obstructive Sleep Apnea (G47.33) this condition is moderate and likely worse than suggested by this study: note lack of total sleep time, slow wave sleep, supine sleep. ? Sleep Disturbance - ICD code G47See comment Note sleep efficiency of 21 percent, total sleep time 80 minutes CO-MORBIDITIES/PAST MEDICAL HISTORY: ? Obesity BMI 34 ? Mood Disorder, Snoring, Sleepiness COMMENTS: Note reduction in total sleep time. Significant MELISSA was documented despite this limitation. The patient s sleep efficiency on the diagnostic night was 21.5%. The patient had - awakenings and 19 arousals. The degree of sleep fragmentation and disruption of sleep architecture places the patient at risk for cognitive impairments and metabolic sequelae including hypertension, cardiovascular disease, diabetes, and the metabolic syndrome. TREATMENT CONSIDERATIONS: ? Treatment options for obstructive sleep apnea include CPAP, surgery, a mandibular advancing device or possibly weight loss. ? A trial of nCPAP therapy is recommended. Followup with pulmonary provider advised. IMPRESSION/RECOMMENDATIONS: 1. MELISSA (obstructive sleep apnea) 2. Class 1 obesity due to excess calories with serious comorbidity and body mass index (BMI) of 34.0 to 34.9 in adult 3. Shortness of breath Marianna Stiles is a 50 y.o. female with medical problems including as above, presenting in follow up for Moderate obstructive sleep apnea AHI 16.6 SpO2 min 87% treated with auto CPAP 5-15 cm of water with good adherence and benefit from use. She will continue CPAP nightly. We discussed how to adjust the tube temperature and humidity settings. Recommended that she turned the humidity down. She reports new shortness of breath and recommended that she follow up with Dr. Suh EDUCATION: Pathophysiology of MELISSA was explained. Health risks associated with untreated MELISSA were discussed (cardiopulmonary, cerebrovascular, and anesthesia/sedative-related). Risks associated with excessive daytime sleepiness, particularly while driving/operating machinery were discussed. The patient was instructed to avoid such activities if feeling sleepy, and to stop the activity if sleepiness occurs (basting puller at the next safe opportunity if driving). Weight loss recommended. Discussed that MELISSA can worsen with weight gain and improve and some cases resolve with weight loss, as well as weight loss improving cardio-metabolic outcomes. Discussed they may be a candidate for tirzepatide for MELISSA and weight loss, if interested advised to discuss with PCP. Above plan as discussed with the patient who acknowledged understanding and agreement. PRISCILLA NAJERA MD [facility] [address] [id number] documented in this encounter [facility] 04-15-2025 Instructions Priscilla Najera MD - 04/15/2025 11:00 AM EDT Images from the original note were not included. Discussed they may be a candidate for tirzepatide (zepbound) for MELISSA and weight loss, if interested advised to discuss with PCP. documented in this encounter [facility] 02-14-2025 Miscellaneous Notes ----- Message from YANIRA Jeong sent at 02/13/2025 10:00 PM EDT ----- Urine culture neg ----- Message ----- From: Julia Carrizales CMA Sent: 02/12/2025 3:14 PM EDT To: YANIRA Saleh Attempted to call patient with results, no answer, left voicemail. documented in this encounter [facility] 02-14-2025 Telephone encounter Note ----- Message from YANIRA Jeong sent at 02/13/2025 10:00 PM EDT ----- Urine culture neg ----- Message ----- From: Julia Carrizales CMA Sent: 02/12/2025 3:14 PM EDT To: YANIRA Saleh [facility] 02-14-2025 Telephone encounter Note Attempted to call patient with results, no answer, left voicemail. [facility] 02-12-2025 History of Presen t illness Narrative Subjective CC: Abdominal pain/urinary symptoms Patient ID: Marianna Stiles is a 49 y.o. female. Marianna presents for follow up of abdominal pain and urinary symptoms.Relates her urine is dark in color, and she has been having burning and frequency with urination for the past two weeks. Marianna relates a history of urinary infections. Was to have a cysto, but she needed to cancel, since had another appointment that day. Needs to reschedule, although states her CPAP is coming next week, and would like to get used to that, before undergoing cysto. She has also seen GI for her abdominal discomfort. They have recommend she have an EGD and colonoscopy, but nothing has been scheduled as of this time. She has been using Linzess for constipation, and is having good results.Although, states can't take her Trazodone, due to it slowing down her bowel motility. Additionally, states her mental health is poor. She follows with behavioral health about every 6 weeks. Doesn't feel her psychiatric symptoms are being addressed to her liking. Relates she had a Peter typing exam for her mental health medications and there were no medication recommendations for her peter type. She denies any homicidal or suicidal thoughts. Follow-up Associated symptoms include nausea and vomiting. The following portions of the patient's history were reviewed and updated as appropriate: allergies, current medications, past family history, past medical history, past social history, past surgical history, problem list, and medication reconciliation was completed including current medication and post discharge medication. Review of Systems Constitutional: Negative. HENT: Negative. Eyes: Negative. Respiratory: Negative. Cardiovascular: Negative. Gastrointestinal: Positive for blood in stool, constipation, nausea and vomiting. Musculoskeletal: Negative. Skin: Negative. Neurological: Negative. Hematological: Negative. Psychiatric/Behavioral: Negative. Objective Physical Exam Vitals and nursing note reviewed. Constitutional: Appearance: Normal appearance. Comments: BMI: 33.66 HENT: Head: Normocephalic and atraumatic. Right Ear: External ear normal. Left Ear: External ear normal. Eyes: Conjunctiva/sclera: Conjunctivae normal. Pupils: Pupils are equal, round, and reactive to light. Cardiovascular: Rate and Rhythm: Normal rate and regular rhythm. Pulses: Normal pulses. Heart sounds: Normal heart sounds. Pulmonary: Effort: Pulmonary effort is normal. Abdominal: Tenderness: There is no right CVA tenderness or left CVA tenderness. Musculoskeletal: Cervical back: Normal range of motion. Skin: General: Skin is warm and dry. Neurological: Mental Status: She is alert and oriented to person, place, and time. Psychiatric: Attention and Perception: Attention normal. Mood and Affect: Affect is tearful. Speech: Speech normal. Behavior: Behavior normal. Behavior is cooperative. Cognition and Memory: Cognition and memory normal. Assessment/Plan Instructed to GI provider regarding appointment for colonoscopy and EGD. Continue with current behavioral health provider, if dissatisfied recommend following with [facility] or [facility] POCT urinalysis Urine culture ordered Follow up in 3 months for abd discomfort Marianna was seen today for follow-up. Diagnoses and all orders for this visit: Urinary frequency - POCT urinalysis dipstick only - Urine culture (clean catch) MDD (major depressive disorder), recurrent, severe, with psychosis ([facility]) ADHD (attention deficit hyperactivity disorder), inattentive type Psychosis, unspecified psychosis type ([facility]) YANIRA Saleh 02/12/25 1602 documented in this encounter [facility] 02-04-2025 Miscellaneous Notes Images from the original note were not included. Osei fitch for PSG. Est Pulm/ sleep pt of SE. Images from the original note were not included. LVM for pt to review PSG/ get DME choice and schedule RV with SE. Informed in VM that can cancel her titration study appt as SE ordered APAP. My chart results/ DME choice list sent. Reminder in place to check back on/ 3 month recall also placed. Routed to sleep lab that titration study can be cancelled. Images from the original note were not included. Pt called back, reviewed PSG results and faxed all info to DME choice of [facility] for APAP setup. Scheduled compliance RV with SE on 05/20 for compliance. Also has July appt- routed to SE/ SS to clarify if both appt wanted Fax confirmation received Can cancel July [facility] called patient and informed her that per SE, her appointment that was scheduled in July 2025 could be cancelled since patient is coming in May 2025, patient verbalized understanding and science writer cancelled appointment in July 2025. documented in this encounter [facility] 02-04-2025 Telephone encounter Note Images from the original note were not included. Osei fitch for PSG. Est Pulm/ sleep pt of SE. [facility] 02-04-2025 Telephone encounter Note Images from the original note were not included. [facility] 02-04-2025 Telephone encounter Note LVM for pt to review PSG/ get DME choice and schedule RV with SE. Informed in VM that can cancel her titration study appt as SE ordered APAP. My chart results/ DME choice list sent. Reminder in place to check back on/ 3 month recall also placed. Routed to sleep lab that titration study can be cancelled. [facility] 02-04-2025 Telephone encounter Note Images from the original note were not included. Pt called back, reviewed PSG results and faxed all info to DME choice of [facility] for APAP setup. Scheduled compliance RV with SE on 05/20 for compliance. Also has July appt- routed to SE/ SS to clarify if both appt wanted Fax confirmation received [facility] 02-04-2025 Telephone encounter Note Can cancel July [facility] 02-04-2025 Telephone encounter Note [facility] called patient and informed her that per SE, her appointment that was scheduled in July 2025 could be cancelled since patient is coming in May 2025, patient verbalized understanding and science writer cancelled appointment in July 2025. [facility] 01-20-2025 Miscellaneous Notes Patient calls to inform that Linzess samples have been working really well, and she would like script sent to pharmacy. RX sent. Patient notified and verbalized understanding documented in this encounter [facility] 01-20-2025 Telephone encounter Note Patient calls to inform that Linzess samples have been working really well, and she would like script sent to pharmacy. [facility] 01-20-2025 Telephone encounter Note RX sent. [facility] 01-20-2025 Telephone encounter Note Patient notified and verbalized understanding [facility] 01-17-2025 Miscellaneous Notes ----- Message from YANIRA Jeong sent at 01/13/2025 1:44 PM EDT ----- Please let pt know ct of abdomen normal, will put in GI referral ----- Message ----- From: Interface - Rad Results/Orders In 1 Sent: 01/13/2025 1:15 PM EDT To: YANIRA Saleh Attempted to call patient with results, no answer, unable to leave voicemail. documented in this encounter [facility] 01-17-2025 Telephone encounter Note ----- Message from YANIRA Jeong sent at 01/13/2025 1:44 PM EDT ----- Please let pt know ct of abdomen normal, will put in GI referral ----- Message ----- From: Interface - Rad Results/Orders In 1 Sent: 01/13/2025 1:15 PM EDT To: YANIRA Saleh [facility] 01-17-2025 Telephone encounter Note Attempted to call patient with results, no answer, unable to leave voicemail. [facility] 01-14-2025 Miscellaneous Notes Check-out Note: EGD/Colonoscopy with MAC only- ASA 2 2 day prep Pt left without checking out 01/14/25, LM for pt to call office. EGD/CLN/MA 05/29/25 @15:00 ASA2, MAC only, JORGE ALBERTO Suflave ordered 2-day instructions sent to MyChart/mailed to home per patient request. Patient verbalizes that she was recently diagnosed with sleep apnea and is currently using CPAP. Please review and advise on ASA/pulmonary clearance if necessary. Thank you. Looks like she has significant sleep apnea on her sleep study. I think she would do better if she gets scheduled at the hospital due to more anesthesia support so please reschedule her at the hospital. No need for pulmonary clearance as long as CPAP has helped with her sleep and she is not having breathing issues during the daytime. Thanks documented in this encounter [facility] 01-14-2025 Telephone encounter Note Check-out Note: EGD/Colonoscopy with MAC only- ASA 2 2 day prep Pt left without checking out 01/14/25, LM for pt to call office. [facility] 01-14-2025 Telephone encounter Note EGD/CLN/MA 05/29/25 @15:00 ASA2, MAC only, JORGE ALBERTO Suflave ordered 2-day instructions sent to [employer]/mailed to home per patient request. Patient verbalizes that she was recently diagnosed with sleep apnea and is currently using CPAP. Please review and advise on ASA/pulmonary clearance if necessary. Thank you. [facility] 01-14-2025 Telephone encounter Note Looks like she has significant sleep apnea on her sleep study. I think she would do better if she gets scheduled at the hospital due to more anesthesia support so please reschedule her at the hospital. No need for pulmonary clearance as long as CPAP has helped with her sleep and she is not having breathing issues during the daytime. Thanks [facility] Work Phone: 01-14-2025 History of Presen t illness Narrative [facility] New Patient Visit - History & Physical CHIEF COMPLAINT: Chief Complaint Patient presents with GI Problem Patient presenting with complaints of abdominal pain, rectal bleeding, and is due for colonoscopy. Patient states it has been days since her last bowel movement, is on trazodone and feels this stops her digestive system, takes heavy doses of laxatives. Eats a lot of fiber. Occasional heartburn. Patient states her stool was very thin and narrow over the weekend, and states orange colored blood, as well as mucous, and strained. States she had left over cipro and took this and this helped relieve pain. Abdominal Pain She states that last week she was 180lbs and is now 193.6. HISTORY OF PRESENT ILLNESS: Marianna Stiles is a 49 y.o. female who has a past medical history of ADHD, anxiety, asthma, depression, eczema, GERD, and PTSD who presents today for evaluation of abdominal pain. She reports stomach issues since childhood that have worsened since October 2024. She has constant epigastric pain radiating down the left side. It is aggravated by eating. No specific trigger foods. The pain is so severe at times that I think I need to go to the hospital sometimes . She has some nausea with intermittent vomiting. No hematemesis. She does have heartburn roughly once a week. She is on Omeprazole 20 mg daily. Her pain did improve for a few days after starting PPI. She has a constant fullness sensation. The pain is not improved with moving her bowels. She has struggled with constipation since starting Trazodone. She is moving her bowels roughly every 4 days. She has hard stools with straining and incomplete evacuation. She recently had episode of bright orange blood in the stool. No melena. She has been taking chocolate laxatives prn. She has also increased dietary fiber. She recently started taking left over Cipro prescription with improvement in her pain. KUB 10/[address] A/P without contrast 01/2025 was unremarkable. GI panel and C diff negative. Appetite is decreased. No weight loss. No prior EGD/colonoscopy. She has a family history of ulcerative colitis in her father. Prior Endoscopic Evaluation: Past Medical History: Diagnosis Date ADHD (attention deficit hyperactivity disorder) Allergic Anxiety Asthma Depression Eczema GERD (gastroesophageal reflux disease) PTSD (post-traumatic stress disorder) PREVIOUS ENDOSCOPY OR X-RAY PROCEDURES: As noted in the HPI Past Surgical History: Past Surgical History: Procedure Laterality Date BREAST BIOPSY CARPAL TUNNEL RELEASE HYSTERECTOMY 2013 Current Medications: Current Outpatient Medications: LORazepam (ATIVAN) 0.5 mg tablet, Take 1 tablet (0.5 mg total) by mouth daily as needed for anxiety., Disp: 10 tablet, Rfl: 0 omeprazole (PriLOSEC) 20 mg capsule, Take 1 capsule (20 mg total) by mouth every morning before breakfast., Disp: 30 capsule, Rfl: 2 traZODone (DESYREL) 50 mg tablet, TAKE 1 TABLET(50 MG) BY MOUTH EVERY NIGHT NEEDED FOR SLEEP, Disp: 90 tablet, Rfl: 0 levomilnacipran (FETZIMA) 20 mg capsule,extended release 24 hr, Take 1 capsule (20 mg total) by mouth in the morning., Disp: 30 capsule, Rfl: 0 I reviewed and reconciled this patient's medication list today. The list included in this note is the most up to date list that I can attest to at this time based on the information that the patient has provided me and the electronic medical record. ALLERGIES: Benadryl [diphenhydramine hcl] SOCIAL HISTORY: Social History Tobacco Use Smoking status: Former Current packs/day: 0.10 Average packs/day: 0.5 packs/day for 19.4 years (9.5 ttl pk-yrs) Types: Cigarettes Start date: 1988 Quit date: 2004 Smokeless tobacco: Never Tobacco comments: chews nicotine gum Vaping Use Vaping status: Never Used Substance Use Topics Alcohol use: Not Currently Comment: occasionally Drug use: No FAMILY HISTORY: Family History Problem Relation Age of Onset Bipolar disorder Mother Depression Mother Schizophrenia Brother Schizophrenia Maternal Grandmother ASSESSMENTS: REVIEW OF SYSTEMS: See HPI, otherwise ROS as below CONSTITUTIONAL: No significant weight change, fatigue, fever, or chills HEENT: No eye pain, difficulty swallowing, or painful swallowing RESPIRATORY: No coughing, shortness of breath, or wheezing CARDIOVASCULAR: No chest pain, palpitations, dyspnea on exertion, or edema GASTROINTESTINAL: Abdominal pain, nausea/vomiting, change in bowel habits, and blood in stool GENITOURINARY: No dysuria or hematuria INTEGUMENT/BREAST: No skin rashes or skin lesions HEMATOLOGIC/LYMPHATIC: No anemia or easy bruising ALLERGIC/IMMUNOLOGIC: No seasonal allergies, itching, or hay fever ENDOCRINE: No heat/cold intolerance, no diabetes MUSCULOSKELETAL: No joint/muscle pain or arthritis NEUROLOGICAL: No headache or seizures BEHAVIOR/PSYCH: Anxiety/depression PHYSICAL EXAM: Vitals: 01/14/25 1216 BP: 101/70 Pulse: 75 Weight: 87.8 kg (193 lb 9.6 oz) Body mass index is 34.31 kg/m . CONSTITUTIONAL: Alert, well developed and well-nourished. No apparent distress. HEAD: Normocephalic, atraumatic EYES: Pupils equal, round and reactive to light; conjunctiva pink; no scleral icterus. ENT: Oral pharynx with moist mucus membranes. LUNGS: No increased work of breathing CARDIOVASCULAR: no edema ABDOMEN: Soft, non-distended and non-tender. SKIN: Warm and dry. No bruising or bleeding, no rashes and no jaundice. MS: Normal range of motion, moves all 4 extremities spontaneously, and ambulates without difficulty. NEURO: Oriented to person, place, and time. No focal deficits. PSYCH: Normal mood and affect. Behavior is normal. Depression Screening DATA: CBC: Lab Results Component Value Date WBC 7.2 10/17/2024 HGB 14.3 10/17/2024 HCT 41.8 10/17/2024 MCV 86 10/17/2024 RDW 13.7 10/17/2024 PLT 336 10/17/2024 CMP: Lab Results Component Value Date K 4.0 10/17/2024 CL 104 10/17/2024 CO2 26 10/17/2024 BUN 14 10/17/2024 GLU 92 10/17/2024 01/06/25 17:35 Campylobacter Not Detected Plesiomonas Not Detected Salmonella Not Detected Vibrio Not Detected Vibrio Cholerae Not Detected Y Enterocolitica Not Detected Aggregative E Coli Not Detected Pathogenic E Coli Not Detected Toxigenic E Coli Not Detected Shiga Toxin E Coli Not Detected Shigella-E Coli Not Detected Cryptosporidium Not Detected Cyclospora Not Detected E Histolytica Not Detected Giardia Lamblia Not Detected Adenovirus Not Detected Astrovirus Not Detected Norovirus Not Detected Rotavirus A Not Detected Sapovirus Not Detected Toxigenic c diff Negative 027 nap1 Presumptive Negative IMAGING: Reviewed. CT A/P without contrast 01/13/2025: FINDINGS: Sequela of old granulomatous disease. The liver, gallbladder, adrenal glands, spleen, pancreas, and kidneys are unremarkable. No enlarged abdominal or pelvic lymph nodes. The bladder is underdistended. Previous hysterectomy. The small and large bowel are of normal caliber with no evidence of bowel wall thickening. Normal appendix. No free fluid in the abdomen or pelvis. No free intraperitoneal air. Visualized body wall structures are unremarkable. No acute osseous abnormalities or aggressive osseous lesions. IMPRESSION: No acute or significant abnormalities identified in the abdomen/pelvis. KUB 01/03/2025: Findings: AP supine view of the abdomen. Nonobstructive bowel gas pattern. Mild amount of gas and stool throughout the colon. Impression: Nonobstructive bowel gas pattern. Mild amount of gas and stool in the colon ASSESSMENT AND PLAN: Marianna Stiles is a 49 y.o. female with a past medical history of ADHD, anxiety, asthma, depression, eczema, GERD, and PTSD who presents today for evaluation of abdominal pain. She has stomach issues since childhood that have worsened since October 2024. She has constant epigastric pain radiating down the left side, aggravated by eating. She has associated nausea, vomiting, GERD, and constipation. She recently has recently had recta bleeding. KUB 10/[address] A/P without contrast 01/2025 was unremarkable. GI panel and C diff negative. I have discussed proceeding with EGD with biopsies for evaluation of gastritis, peptic ulcer disease, and H. Pylori infection in addition to colonoscopy with biopsies for colitis. I have discussed the risks and benefits of endoscopy including but not limited to, bleeding, infection, perforation/tear as well as anesthesia risks. Patient verbalized understanding and is agreeable to proceed. Will plan 2 day bowel prep. I have also given her samples of Linzess 145 mcg daily. Diagnoses and all orders for this visit: Epigastric pain - EGD; Future with Dr. Coronado with MAC- ASA 2 Gastroesophageal reflux disease, unspecified whether esophagitis present - EGD; Future with Dr. Coronado with MAC- ASA 2 Drug-induced constipation - Colonoscopy; Future with Dr. Coronado with MAC- ASA 2; 2 day bowel prep - Linzess 145 mcg daily, samples provided Rectal bleeding - Colonoscopy; Future with Dr. Coronado with MAC- ASA 2; 2 day bowel prep Follow up after endoscopy or sooner if needed. YANIRA Chapin [facility] [place] [address] PH: [phone] /[place] Total time spent: 45 minutes Preparing to see the patient (e.g., review of tests) Obtaining and/or reviewing separately obtained history Performing a medically appropriate examination and/or evaluation Counseling and educating the patient/family/caregiver Ordering medications, tests, or procedures YANIRA Ramirez 01/14/25 3317 documented in this encounter [facility] 01-10-2025 Miscellaneous Notes ----- Message from YANIRA Jeong sent at 01/08/2025 3:53 PM EDT ----- Gi panel neg ----- Message ----- From: Lab, Background User Sent: 01/07/2025 2:44 PM EDT To: YANIRA Saleh Attempted to call and inform patient of results, no answer, left voicemail. documented in this encounter [facility] 01-10-2025 Telephone encounter Note ----- Message from YANIRA Jeong sent at 01/08/2025 3:53 PM EDT ----- Gi panel neg ----- Message ----- From: Lab, Background User Sent: 01/07/2025 2:44 PM EDT To: YANIRA Saleh [facility] 01-10-2025 Telephone encounter Note Attempted to call and inform patient of results, no answer, left voicemail. [facility] 01-10-2025 Miscellaneous Notes 01/09 received COMP order 01/10 Called PT LM to schedule sleep study. COMP order and 01/09 Angeli notes in epic documented in this encounter [facility] 01-10-2025 Telephone encounter Note 01/09 received COMP order 01/10 Called PT LM to schedule sleep study. COMP order and 01/09 Angeli notes in epic [facility] 01-09-2025 History of Presen t illness [facility] Patient - Marianna Stiles Age - 49 y.o. - 1975 Referring physician: Camille Corley CNP Reason for Consultation: Pulmonary nodules HPI: Marianna Stiles is a 49 y.o. female with history of ADHD, PTSD, tobacco use who presents for evaluation of her abnormal sleep and pulmonary nodule. Patient was referred due to nodule being incidentally found on CT angiogram during an ER visit in October. No previous history of CT scans. Largest nodule was 5 mm but she did have several bilaterally. She denies any symptoms of cough, wheeze, congestion. No previous diagnosis of asthma or COPD. She does smoke tobacco and reports that she is currently smoking intermittently. She does have very abnormal sleep. She has tried to have a sleep study ordered multiple times but it appears to keeps getting denied. She is uncertain why this is the case. She snores loudly at night. She wakes up gasping and choking for air. She routinely has a morning headache. She never feels well rested and is frequently fatigued. She does also have time periods will show go a couple days without sleep. She does occasionally take trazodone to help induced sleep and maintain sleep. She states without the trazodone she will have fragmented sleep. She does following closely with her psychiatrist to work on her medication regimen to assist with some of this as well. ASSESSMENT 1. Sleep-related breathing disorder with snoring highly suspicious for MELISSA 2. Daytime sleepiness with morning headache concerning for MELISSA 3. Insomnia 4. Bilateral pulmonary nodules, greatest 5 mm. Seen October 2024 5. Tobacco user PLAN I have personally reviewed the patient's most recent chest imaging and interpreted it independently. These findings were discussed with the patient. Repeat CT scan of the chest is indicated in 12 months. Order placed in anticipated in October of 2025 Advised patient she does not need to obtain PFT at this time given lack of respiratory symptoms No role for inhalers at present Reviewed sleep-related symptoms. Agreed highly suspicious for underlying obstructive sleep apnea or sleep disorder. Rx placed for sleep study and Pap titration. All questions answered to her satisfaction Will see back in clinic in 6 months or earlier if needed. The patient was encouraged to call me with any concerns prior. Thank you for allowing me to participate in your patient's care. ; Past Medical History: Diagnosis Date ADHD (attention deficit hyperactivity disorder) Allergic Anxiety Asthma Depression Eczema GERD (gastroesophageal reflux disease) PTSD (post-traumatic stress disorder) Past Surgical History: Procedure Laterality Date BREAST BIOPSY CARPAL TUNNEL RELEASE HYSTERECTOMY 2013 Benadryl [diphenhydramine hcl] Prior to Admission medications Medication Sig Start Date End Date Taking? Authorizing Provider FLUoxetine (PROzac) 20 mg capsule Take 2 capsules (40 mg total) by mouth in the morning. 11/11/24 Yes Sayra Villela MD LORazepam (ATIVAN) 0.5 mg tablet Take 1 tablet (0.5 mg total) by mouth daily as needed for anxiety. 12/31/24 Yes Sayra Villela MD omeprazole (PriLOSEC) 20 mg capsule Take 1 capsule (20 mg total) by mouth every morning before breakfast. 01/01/25 Yes Camille Corley, HAND[employer]ODUCTION ENGINEER traZODone (DESYREL) 50 mg tablet TAKE 1 TABLET(50 MG) BY MOUTH EVERY NIGHT NEEDED FOR SLEEP 12/04/24 Yes Sayra Villela MD reports that she quit smoking about 20 years ago. Her smoking use included cigarettes. She started smoking about 36 years ago. She has a 9.5 pack-year smoking history. She has never used smokeless tobacco. She reports that she does not currently use alcohol. She reports that she does not use drugs. Family History Problem Relation Age of Onset Bipolar disorder Mother Depression Mother Schizophrenia Brother Schizophrenia Maternal Grandmother Review of Systems: All 11 systems have been reviewed and are negative except as mentioned in History of Present Illness. Exam: General: Alert, oriented, no acute distress, nontoxic, well nourished HEENT: Moist mucosal membranes, no oral lesions or oral thrush, trachea midline Chest: Clear to auscultation bilaterally without any crackles, wheezes, rhonchi. Normal AP diameter. CV: Regular rate regular rhythm Extremities: No edema, erythema, distal cyanosis, clubbing Integumentary: Warm and dry. No rash or lesion Neuro: Cranial nerves 2-11 grossly intact. No lateralizing deficits. VITALS BP 123/75 Pulse 72 Ht 160 cm (5' 2.99 ) Wt 85.5 kg (188 lb 8 oz) SpO2 100% BMI 33.40 kg/m PFT Results: None Radiology CT CTA CHEST 10/17/2024 8:30 PM INDICATION: Pulmonary embolism (PE) suspected, low to intermediate prob, positive D-dimer COMPARISON: None TECHNIQUE: Contrast-enhanced CT images of the chest were obtained. 3-D images were also post processed at a separate workstation to further define anatomy and potential pathology. All CT scans at this facility use dose modulation, iterative reconstruction, and/or weight based dosing when appropriate to reduce radiation dose to as low as reasonably achievable. FINDINGS: LUNGS/PLEURA: Peripheral lung nodules versus small foci of atelectasis, measuring up to 5 mm. Near-complete calcified nodule of the right lung base. No pleural effusion, thickening or pneumothorax CENTRAL AIRWAYS: Patent trachea and mainstem bronchi. VASCULATURE: Normal course and caliber of the thoracic aorta. No pulmonary definite embolism. The main pulmonary artery is not enlarged. There is no reflux of contrast into the inferior vena cava. HEART/PERICARDIUM: The heart is not enlarged. No pericardial effusion. No significant coronary artery calcifications. MEDIASTINUM: No hilar or mediastinal lymphadenopathy. LOWER NECK: Unremarkable. CHEST WALL: No axillary adenopathy. UPPER ABDOMEN: Unremarkable. OSSEOUS STRUCTURES: Mild degenerative changes of the visualized spine. IMPRESSION: 1. No definite pulmonary embolism. 2. Peripheral lung nodules versus small foci of atelectasis, measuring up to 5 mm. Follow-up CT chest in 12 months could be obtained as a conservative measure. Dr. Yvette Suh DO. [facility] Office: [phone] documented in this encounter [facility] [facility] 01-03-2025 Miscellaneous Notes ----- Message from YANIRA Jeong sent at 01/03/2025 11:07 AM EDT ----- Abdominal x-ray demonstrated mild amount of gas and stool in colon. Advise taking miralax twice daily, until having daily bowel movement ----- Message ----- From: Interface - Rad Results/Orders In 1 Sent: 01/03/2025 8:26 AM EDT To: YANIRA Saleh Attempted to call patient with results, no answer, left voicemail to call office. documented in this encounter [facility] 01-03-2025 Telephone encounter Note ----- Message from YANIRA Jeong sent at 01/03/2025 11:07 AM EDT ----- Abdominal x-ray demonstrated mild amount of gas and stool in colon. Advise taking miralax twice daily, until having daily bowel movement ----- Message ----- From: T-System - Rad Results/Orders In 1 Sent: 01/03/2025 8:26 AM EDT To: YANIRA Saleh [facility] 01-03-2025 Telephone encounter Note Attempted to call patient with results, no answer, left voicemail to call office. [facility] 01-01-2025 History of Presen t illness Narrative Subjective CC: left sided abdominal pain/vomiting Patient ID: Marianna Stiles is a 49 y.o. female. Marianna presents with complaints of stomach pain and vomiting. She relates has had problems with her stomach ever since she was a young child. States she feels bloated all the time, and this is worse after eating. States is only able to take a few bites and then feels full. States she vomits about once a day. Pain starts under her left ribs, and radiates to mid abdomen. Also relates when has a bowel movement will have pain around the umbilicus. States bowels move once every few days. Recently had stools for three hours, states initially were hard,but eventually became like pudding. Relates foul smelling stools with mucous. States she took Pepto Bismol all day, but it didn't help. Has never tried a PPI, or H2 kiera. Abdominal Pain Associated symptoms include constipation, diarrhea and vomiting. The following portions of the patient's history were reviewed and updated as appropriate: allergies, current medications, past family history, past medical history, past social history, past surgical history, problem list, and medication reconciliation was completed including current medication and post discharge medication. Review of Systems Constitutional: Negative. HENT: Negative. Eyes: Negative. Respiratory: Negative. Cardiovascular: Negative. Gastrointestinal: Positive for abdominal pain, constipation, diarrhea and vomiting. Negative for blood in stool. Musculoskeletal: Negative. Skin: Negative. Neurological: Negative. Hematological: Negative. Psychiatric/Behavioral: Negative. Objective Physical Exam Vitals and nursing note reviewed. Constitutional: Appearance: Normal appearance. She is well-developed. Comments: BMI: 33.70 HENT: Head: Normocephalic and atraumatic. Right Ear: Hearing, tympanic membrane, ear canal and external ear normal. Left Ear: Hearing, tympanic membrane, ear canal and external ear normal. Nose: Rhinorrhea present. Mouth/Throat: Lips: [place]. Mouth: Mucous membranes are moist. Pharynx: Oropharynx is clear. Uvula midline. No oropharyngeal exudate. Eyes: General: Lids are normal. Conjunctiva/sclera: Conjunctivae normal. Pupils: Pupils are equal, round, and reactive to light. Cardiovascular: Rate and Rhythm: Normal rate and regular rhythm. Pulses: Normal pulses. Heart sounds: Normal heart sounds. Pulmonary: Effort: Pulmonary effort is normal. Breath sounds: Normal breath sounds and air entry. Abdominal: General: Bowel sounds are normal. There is no distension. Palpations: Abdomen is soft. Tenderness: There is abdominal tenderness. Comments: Unable to determine mass due to body habitus Musculoskeletal: General: Normal range of motion. Cervical back: Normal range of motion and neck supple. Lymphadenopathy: Cervical: No cervical adenopathy. Skin: General: Skin is warm and dry. Neurological: General: No focal deficit present. Mental Status: She is alert and oriented to person, place, and time. Psychiatric: Mood and Affect: Mood normal. Behavior: Behavior normal. Assessment/Plan KUB ordered GI panel ordered, and c-diff CT abdomen and pelvis Start Omeprazole 20 mg before breakfast May need GI referral once above testing completed Follow up in 4 weeks for abdominal pain, sooner if needed Marianna was seen today for abdominal pain. Diagnoses and all orders for this visit: Left sided abdominal pain - X-ray abdomen ap 1 view; Future - GI Panel(stool pathogen panel); Future - C difficile by PCR; Future - CT abdomen and pelvis without contrast; Future - omeprazole (PriLOSEC) 20 mg capsule; Take 1 capsule (20 mg total) by mouth every morning before breakfast. Stool mucus - GI Panel(stool pathogen panel); Future - C difficile by PCR; Future - CT abdomen and pelvis without contrast; Future Abnormal stools YANIRA Saleh 01/01/25 1706 documented in this encounter [facility] 12-30-2024 Note Patient Education Urology Dysuria Dysuria is pain or discomfort during urination. The pain or discomfort may be felt in the part of the body that drains urine from the bladder (urethra) or in the surrounding tissue of the genitals. The pain may also be felt in the groin area, lower abdomen, or lower back. You may have to urinate frequently or have the sudden feeling that you have to urinate (urgency). Dysuria can affect anyone, but it is more common in females. Dysuria can be caused by many different things, including: ??? Urinary tract infection. ??? Kidney stones or bladder stones. ??? Certain STIs (sexually transmitted infections), such as chlamydia. ??? Dehydration. ??? Inflammation of the tissues of the vagina. ??? Use of certain medicines. ??? Use of certain soaps or scented products that cause irritation. Follow these instructions at home: Medicines ??? Take [id number] and prescription medicines only as told by your health care provider. ??? If you were prescribed an antibiotic medicine, take it as told by your health care provider. Do not stop taking the antibiotic even if you start to feel better. Eating and drinking ??? Drink enough fluid to keep your urine pale yellow. ??? Avoid caffeinated beverages, tea, and alcohol. These beverages can irritate the bladder and make dysuria worse. In males, alcohol may irritate the prostate. General instructions ??? Watch your condition for any changes. ??? Urinate often. Avoid holding urine for long periods of time. ??? If you are female, you should wipe from front to back after urinating or having a bowel movement. Use each piece of toilet paper only once. ??? Empty your bladder after sex. ??? Keep all follow-up visits. This is important. ??? If you had any tests done to find the cause of dysuria, it is up to you to get your test results. Ask your health care provider, or the department that is doing the test, when your results will be ready. Contact a health care provider if: ??? You have a fever. ??? You develop pain in your back or sides. ??? You have nausea or vomiting. ??? You have blood in your urine. ??? You are not urinating as often as you usually do. Get help right away if: ??? Your pain is severe and not relieved with medicines. ??? You cannot eat or drink without vomiting. ??? You are confused. ??? You have a rapid heartbeat while resting. ??? You have shaking or chills. ??? You feel extremely weak. Summary ??? Dysuria is pain or discomfort while urinating. Many different conditions can lead to dysuria. ??? If you have dysuria, you may have to urinate frequently or have the sudden feeling that you have to urinate (urgency). ??? Watch your condition for any changes. Keep all follow-up visits. ??? Make sure that you urinate often and drink enough fluid to keep your urine pale yellow. This information is not intended to replace advice given to you by your health care provider. Make sure you discuss any questions you have with your health care provider. Document Revised: 04/02/2021 Document Reviewed: 04/02/2021 [employer] Patient Education ? 2023 [employer] [facility] 12-30-2024 Miscellaneous Notes Patient called into office stating that her home sleep study was denied by insurance. Wanting to know what the next steps for testing or treatment. Please advise? She has an appt on 01/09/2025 with pulmonology. She can discuss it with them and see what they advise, since this is their speciality Called and informed patient, verbalized understanding documented in this encounter [facility] 12-30-2024 Telephone encounter Note Patient called into office stating that her home sleep study was denied by insurance. Wanting to know what the next steps for testing or treatment. Please advise? [facility] 12-30-2024 Telephone encounter Note She has an appt on 01/09/2025 with pulmonology. She can discuss it with them and see what they advise, since this is their speciality [facility] 12-30-2024 Telephone encounter Note Called and informed patient, verbalized understanding [facility] 12-17-2024 History of Presen t illness Narrative Images from the original note were not included. [address] [place] [id number] Patient: Marianna Stiles Date of : 1975 Encounter Date: 12/17/2024 Subjective: Chief Complaint Chief Complaint Patient presents with Follow-up History of Present Illness Marianna Stiles is a 49 y.o. female, established patient, that presents to the office for dark colored urine and fullness of bladder. Difficulty Urinating This is a recurrent problem. The problem has been unchanged (Completed course of amoxicillin and cipro prescribed by [employer]ER but did not notice any change in urine color. She describes bladder as feeling like balloon that will expand. Is relieved when she urinates. Last urine culture from 11/19 was + Enterococus). The patient is experiencing no pain. There has been no fever. Associated symptoms include flank pain (Occasional flank pain on the right side) and urgency. Pertinent negatives include no chills. Review of Systems Review of Systems Constitutional: Negative for chills. Genitourinary: Positive for dysuria, flank pain (Occasional flank pain on the right side) and urgency. Vital Signs BP 122/80 (BP Site: Left Arm, BP Postition: Sitting) Pulse 85 Temp 36.6 C (97.8 F) (Oral) Wt 87.7 kg (193 lb 6.4 oz) SpO2 98% BMI 34.27 kg/m Physical Exam Physical Exam Vitals reviewed. Constitutional: General: She is not in acute distress. Appearance: She is not ill-appearing or toxic-appearing. Cardiovascular: Rate and Rhythm: Normal rate and regular rhythm. Heart sounds: No murmur heard. Pulmonary: Effort: No accessory muscle usage or respiratory distress. Breath sounds: Normal breath sounds. No decreased breath sounds, wheezing, rhonchi or rales. Abdominal: General: Bowel sounds are normal. There is no distension. Palpations: Abdomen is soft. Tenderness: There is no abdominal tenderness. There is no right CVA tenderness, left CVA tenderness, guarding or rebound. Hernia: There is no hernia in the umbilical area. Musculoskeletal: Right lower leg: No edema. Left lower leg: No edema. Psychiatric: Mood and Affect: Affect is flat. Speech: Speech normal. Past Medical, Family, Surgery and Social History Past Medical History: Diagnosis Date ADHD (attention deficit hyperactivity disorder) Allergic Anxiety Asthma Depression Eczema GERD (gastroesophageal reflux disease) PTSD (post-traumatic stress disorder) Past Surgical History: Procedure Laterality Date BREAST BIOPSY CARPAL TUNNEL RELEASE HYSTERECTOMY 2014 Family History Problem Relation Age of Onset Bipolar disorder Mother Depression Mother Schizophrenia Brother Schizophrenia Maternal Grandmother Social History Socioeconomic History Marital status: Spouse name: Not on file Number of children: Not on file Years of education: Not on file Highest education level: Not on file Occupational History Not on file Tobacco Use Smoking status: Former Current packs/day: 0.00 Types: Cigarettes Quit date: 09/18/2024 Years since quittin.2 Smokeless tobacco: Never Tobacco comments: chews nicotine gum Vaping Use Vaping status: Never Used Substance and Sexual Activity Alcohol use: Not Currently Comment: occasionally Drug use: No Sexual activity: Not Currently Partners: Male control/protection: Post-menopausal Other Topics Concern Caffeine Use Yes Social History Narrative Not on file Social Drivers of Health Financial Resource Strain: Low Risk (11/19/2024) Overall Financial Resource Strain (CARDIA) Difficulty of Paying Living Expenses: Not hard at all Food Insecurity: No Food Insecurity (12/17/2024) Hunger Screening Food Insecurity - Worry: Never True Food Insecurity - Inability: Never True Transportation Needs: No Transportation Needs (11/19/2024) PRAPARE - Transportation Lack of Transportation (Medical): No Lack of Transportation (Non-Medical): No Physical Activity: Not on file Stress: Not on file Social Connections: Not on file Interpersonal Safety: Not on file Housing Instability: Low Risk (11/19/2024) Housing Instability Housing Instability: No Allergies and Current Medications Allergies Allergen Reactions Benadryl [Diphenhydramine Hcl] [place] like I was dying Current Outpatient Medications on File Prior to Visit Medication Sig ciprofloxacin HCl (CIPRO) 500 mg tablet Take 1 tablet (500 mg total) by mouth. TAKE 1 TABLET BY MOUTH EVERY MORNING AND 1 TABLET BEFORE BEDTIME FLUoxetine (PROzac) 20 mg capsule Take 2 capsules (40 mg total) by mouth in the morning. traZODone (DESYREL) 50 mg tablet TAKE 1 TABLET(50 MG) BY MOUTH EVERY NIGHT NEEDED FOR SLEEP No current facility-administered medications on file prior to visit. Assessment/Plan: 1. Enterococcus UTI - Urinalysis (clean catch); Future - Urine culture (clean catch); Future 2. Recurrent UTI (urinary tract infection) - Ambulatory referral to Urology; Future - phenazopyridine (PYRIDIUM) 100 mg tablet; Take 1 tablet (100 mg total) by mouth 3 (three) times a day as needed for bladder spasms for up to 5 days. Dispense: 15 tablet; Refill: 0 Patient Instructions Referral placed to urology in [place] as requested. Ordered urinalysis and urine culture to ensure that previous UTI resolved especially since still having symptoms. Trial with pyridium to see if helps with bladder discomfort that you are still experiencing Follow-up: Keep March 10, 2025 appointment - Luiza Cuello DO 12/18/24 3:26 PM documented in this encounter [facility] 12-17-2024 Instructions Luiza Cuello DO - 12/17/2024 10:00 AM EDT Referral placed to urology in [place] as requested. Ordered urinalysis and urine culture to ensure that previous UTI resolved especially since still having symptoms. Trial with pyridium to see if helps with bladder discomfort that you are still experiencing [facility] History of Presen t illness Narrative Reason for Appointment: Patient ID: Marianna Stiles is a 49 y.o. female who presents for Menopause Patient presents today for Acute Visit. MEDICATIONS Current Outpatient Medications Medication Instructions ciprofloxacin (CIPRO) 500 mg, Oral, 2 times daily estradiol (Climara) 0.025 MG/24HR 1 patch, Transdermal, Weekly estradiol (ESTRACE) 2 g, Vaginal, Daily, Apply 1/2 APPLICATOR daily for 2 weeks FLUoxetine (PROZAC) 20 mg, Oral, Daily, 1 capsule traZODone (DESYREL) 50 mg, Oral, Daily, 1/2 tab ALLERGIES No Known Allergies PROBLEMS Active Ambulatory Problems Diagnosis Date Noted Memory change 12/28/2023 Paresthesia 12/28/2023 Resolved Ambulatory Problems Diagnosis Date Noted No Resolved Ambulatory Problems Past Medical History: Diagnosis Date ADHD (attention deficit hyperactivity disorder) (CMS/HCC) Allergic rhinitis Depression (CMS/HCC) PTSD (post-traumatic stress disorder) (CMS/HCC) Schizoaffective disorder (CMS/HCC) HISTORY PAST MEDICAL HISTORY SOCIAL HISTORY Past Medical History: Diagnosis Date ADHD (attention deficit hyperactivity disorder) (CMS/HCC) Allergic rhinitis Depression (CMS/HCC) PTSD (post-traumatic stress disorder) (CMS/HCC) Schizoaffective disorder (CMS/HCC) Social History Tobacco Use Smoking status: Not on file Smokeless tobacco: Not on file Substance Use Topics Alcohol use: Not on file Drug use: Not on file FAMILY HISTORY No family history on file. SURGICAL HISTORY Past Surgical History: Procedure Laterality Date CARPAL TUNNEL RELEASE Right 2019 CT ANGIO HEAD 06/15/2016 CT ANGIO HEAD 06/15/2016 CT ANGIOGRAM HEART CORONARY 10/17/2024 CT ANGIOGRAM TAVR 10/17/2024 HYSTERECTOMY 2014 REVIEW OF SYSTEMS Review of Systems: Review of Systems Constitutional: Negative. HENT: Negative. Eyes: Negative. Respiratory: Negative. Cardiovascular: Negative. Gastrointestinal: Negative. Genitourinary: Positive for frequency and vaginal dryness. Vasomotor symptoms and difficulty sleeping, memory foggy Musculoskeletal: Negative. Skin: Negative. Neurological: Negative. All other systems reviewed and are negative. Hematological: Negative. Endocrine: Negative. Allergic/Immunologic: Negative. OBJECTIVE Objective: Physical Exam Constitutional: Appearance: Normal appearance. She is well-developed. Cardiovascular: Rate and Rhythm: Normal rate and regular rhythm. Pulmonary: Effort: Pulmonary effort is normal. Breath sounds: Normal breath sounds. Abdominal: General: Bowel sounds are normal. There is no distension. Palpations: Abdomen is soft. Tenderness: There is no abdominal tenderness. There is no guarding or rebound. Musculoskeletal: General: No swelling. Normal range of motion. Right lower leg: No edema. Left lower leg: No edema. Neurological: Mental Status: She is alert and oriented to person, place, and time. Skin: General: Skin is warm and dry. Psychiatric: Mood and Affect: Mood normal. Behavior: Behavior normal. Vitals and nursing note reviewed. Exam conducted with a travel physical therapist present. Vitals: Estimated body mass index is 32.62 kg/m as calculated from the following: Height as of 01/07/23: 5' 4.25 . Weight as of this encounter: 191 lb 8 oz. BP: 116/84 No LMP recorded. ASSESSMENT & PLAN ICD-10-CM 1. Menopause Z78.0 estradiol (Climara) 0.025 MG/24HR estradiol (Estrace) 0.1 MG/GM vaginal cream Estradiol Estrone Cortisol, free DHEA-sulfate Sex hormone binding globulin Insulin, total Serotonin serum TSH T4, free T3, reverse Progesterone Vitamin D 1,25 dihydroxy Ferritin T3, free Thyroglobulin Thyroglobulin Antibody Thyroid peroxidase antibody T4 TESTOSTERONE, FREE Testosterone, free, total Hemoglobin A1c Glucose, random C-peptide Cortisol, free Insulin, total Serotonin serum Thyroglobulin Thyroglobulin Antibody T4 Glucose, random C-peptide 2. Vasomotor symptoms due to menopause N95.1 estradiol (Climara) 0.025 MG/24HR estradiol (Estrace) 0.1 MG/GM vaginal cream Estradiol Estrone Cortisol, free DHEA-sulfate Sex hormone binding globulin Insulin, total Serotonin serum TSH T4, free T3, reverse Progesterone Vitamin D 1,25 dihydroxy Ferritin T3, free Thyroglobulin Thyroglobulin Antibody Thyroid peroxidase antibody T4 TESTOSTERONE, FREE Testosterone, free, total Hemoglobin A1c Glucose, random C-peptide Cortisol, free Insulin, total Serotonin serum Thyroglobulin Thyroglobulin Antibody T4 Glucose, random C-peptide 3. Hormone disorder E34.9 Estradiol Estrone Cortisol, free DHEA-sulfate Sex hormone binding globulin Insulin, total Serotonin serum TSH T4, free T3, reverse Progesterone Vitamin D 1,25 dihydroxy Ferritin T3, free Thyroglobulin Thyroglobulin Antibody Thyroid peroxidase antibody T4 TESTOSTERONE, FREE Testosterone, free, total Hemoglobin A1c Glucose, random C-peptide Cortisol, free Insulin, total Serotonin serum Thyroglobulin Thyroglobulin Antibody T4 Glucose, random C-peptide 4. Cystitis N30.90 ciprofloxacin (Cipro) 500 MG tablet Patient complains of frequency in urination. She is concerned she is going through menopause with complaints of weight gain, and heart palpitations, brain fog, hot flashes and difficulty sleeping. We will send in through lab panel as well as estrace vaginal cream, climara patch and Cipro for cystitis complaints. Documented by Amy Neri NP on behalf of: Kwame Rosas DO documented in this encounter [facility] 11-22-2024 Miscellaneous Notes Called and informed patient of results. Verbalized understanding with patient. documented in this encounter [facility] 11-22-2024 Telephone encounter Note Called and informed patient of results. Verbalized understanding with patient. [facility] 11-19-2024 History of Presen t illness Narrative Images from the original note were not included. [facility] [address] [place] [address] [place] [address] Patient: Marianna Stiles Date of : 1975 Encounter Date: 11/19/2024 Subjective: Chief Complaint Chief Complaint Patient presents with Bladder Pain History of Present Illness Marianna Stiles is a 49 y.o. female, established patient, that presents to the office for pain with urination and dark colored urine. Difficulty Urinating Progression since onset: She completed week of amoxicillin and felt a little better but then symptoms returned. There has been no fever. There is No history of pyelonephritis. Associated symptoms include chills and nausea (This morning). Associated symptoms comments: Does not feel like empty bladders completely when urinates. Urine dark color. Lower back discomfort. She states that when she wakes in the morning she will feel distension in bladder as she describes like a balloon ready to pop . Denies any urinary incontinence or leakage . Her past medical history is significant for recurrent UTIs. Last urinalysis 10/21/24 was positive E coli and Enterococcus Review of Systems Review of Systems Constitutional: Positive for appetite change (Decreased appetite. She states that she has to force herself to eat. She has been drinking fluids including pedialyte), chills and fatigue (She states that all she wants to do is sleep. Worse over the past three weeks). Negative for fever. Denies any recent sick contacts Gastrointestinal: Positive for abdominal pain (Located in left upper abdomen at ribs. Comes and goes but only in the morning. Denies anything that changes discomfort) and nausea (This morning). Negative for diarrhea. Denies any change in bowel habits Genitourinary: Positive for dysuria. Musculoskeletal: Positive for myalgias (She feels achy all over since this morning). Psychiatric/Behavioral: Does not take trazodone nightly. Did take last night but take every couple of day Vital Signs BP 110/80 (BP Site: Left Arm, BP Postition: Sitting) Pulse 96 Temp 37.2 C (99 F) (Oral) Wt 85 kg (187 lb 6.4 oz) SpO2 98% BMI 33.20 kg/m Physical Exam Physical Exam Vitals reviewed. Constitutional: Comments: Appears tired and uncomfortable; shifting in the chair during interview HENT: Head: Normocephalic. Mouth/Throat: Lips: [place]. No lesions. Mouth: Mucous membranes are moist. Pharynx: Oropharynx is clear. No pharyngeal swelling, oropharyngeal exudate or posterior oropharyngeal erythema. Cardiovascular: Rate and Rhythm: Normal rate and regular rhythm. Heart sounds: No murmur heard. Pulmonary: Effort: Pulmonary effort is normal. Breath sounds: Normal breath sounds. No decreased breath sounds, wheezing, rhonchi or rales. Abdominal: General: Abdomen is flat. There is no distension or abdominal bruit. Palpations: Abdomen is soft. There is no fluid wave or mass. Tenderness: There is abdominal tenderness in the left upper quadrant. There is no right CVA tenderness, left CVA tenderness, guarding or rebound. Musculoskeletal: Cervical back: Neck supple. Right lower leg: No edema. Left lower leg: No edema. Lymphadenopathy: Cervical: No cervical adenopathy. Skin: Capillary Refill: Capillary refill takes less than 2 seconds. Coloration: Skin is not jaundiced or pale. Past Medical, Family, Surgery and Social History Past Medical History: Diagnosis Date ADHD (attention deficit hyperactivity disorder) Allergic Anxiety Asthma Depression Eczema GERD (gastroesophageal reflux disease) PTSD (post-traumatic stress disorder) Past Surgical History: Procedure Laterality Date BREAST BIOPSY CARPAL TUNNEL RELEASE HYSTERECTOMY 2014 Family History Problem Relation Age of Onset Bipolar disorder Mother Depression Mother Schizophrenia Brother Schizophrenia Maternal Grandmother Social History Socioeconomic History Marital status: Spouse name: Not on file Number of children: Not on file Years of education: Not on file Highest education level: Not on file Occupational History Not on file Tobacco Use Smoking status: Former Current packs/day: 0.00 Types: Cigarettes Quit date: 09/18/2024 Years since quittin.1 Smokeless tobacco: Never Tobacco comments: chews nicotine gum Vaping Use Vaping status: Never Used Substance and Sexual Activity Alcohol use: Not Currently Comment: occasionally Drug use: No Sexual activity: Not Currently Partners: Male control/protection: Post-menopausal Other Topics Concern Caffeine Use Yes Social History Narrative Not on file Social Drivers of Health Financial Resource Strain: Low Risk (11/19/2024) Overall Financial Resource Strain (CARDIA) Difficulty of Paying Living Expenses: Not hard at all Food Insecurity: No Food Insecurity (11/19/2024) Hunger Screening Food Insecurity - Worry: Never True Food Insecurity - Inability: Never True Transportation Needs: No Transportation Needs (11/19/2024) PRAPARE - Transportation Lack of Transportation (Medical): No Lack of Transportation (Non-Medical): No Physical Activity: Not on file Stress: Not on file Social Connections: Not on file Interpersonal Safety: Not on file Housing Instability: Low Risk (11/19/2024) Housing Instability Housing Instability: No Allergies and Current Medications Allergies Allergen Reactions Benadryl [Diphenhydramine Hcl] [place] like I was dying Current Outpatient Medications on File Prior to Visit Medication Sig FLUoxetine (PROzac) 20 mg capsule Take 2 capsules (40 mg total) by mouth in the morning. traZODone (DESYREL) 100 mg tablet Take 1 tablet (100 mg total) by mouth nightly as needed for sleep. No current facility-administered medications on file prior to visit. Labs and Imaging Lab Results Component Value Date WBC 7.2 10/17/2024 HGB 14.3 10/17/2024 HCT 41.8 10/17/2024 PLT 336 10/17/2024 CHOL 197 11/04/2024 TRIG 80 11/04/2024 HDL 59 11/04/2024 ALT 20 10/17/2024 AST 19 10/17/2024 K 4.0 10/17/2024 CL 104 10/17/2024 CREATININE 0.94 10/17/2024 BUN 14 10/17/2024 CO2 26 10/17/2024 TSH 0.83 08/30/2024 INR 1.0 10/17/2024 HGBA1C 5.3 04/25/[address] CTA CHEST 10/17/2024 8:30 PM INDICATION: Pulmonary embolism (PE) suspected, low to intermediate prob, positive D-dimer COMPARISON: None TECHNIQUE: Contrast-enhanced CT images of the chest were obtained. 3-D images were also post processed at a separate workstation to further define anatomy and potential pathology. All CT scans at this facility use dose modulation, iterative reconstruction, and/or weight based dosing when appropriate to reduce radiation dose to as low as reasonably achievable. FINDINGS: LUNGS/PLEURA: Peripheral lung nodules versus small foci of atelectasis, measuring up to 5 mm. Near-complete calcified nodule of the right lung base. No pleural effusion, thickening or pneumothorax CENTRAL AIRWAYS: Patent trachea and mainstem bronchi. VASCULATURE: Normal course and caliber of the thoracic aorta. No pulmonary definite embolism. The main pulmonary artery is not enlarged. There is no reflux of contrast into the inferior vena cava. HEART/PERICARDIUM: The heart is not enlarged. No pericardial effusion. No significant coronary artery calcifications. MEDIASTINUM: No hilar or mediastinal lymphadenopathy. LOWER NECK: Unremarkable. CHEST WALL: No axillary adenopathy. UPPER ABDOMEN: Unremarkable. OSSEOUS STRUCTURES: Mild degenerative changes of the visualized spine. IMPRESSION: 1. No definite pulmonary embolism. 2. Peripheral lung nodules versus small foci of atelectasis, measuring up to 5 mm. Follow-up CT chest in 12 months could be obtained as a conservative measure. Finalized by Sayra Becker DO on 10/17/2024 9:26 PM X-ray chest 2 views PA and lateral chest: HISTORY: Cough. Chest pain. 2 views the chest are obtained. Cardiac and mediastinal contours are within normal limits. Lungs are clear. There is no vascular congestion, effusion, or pneumothorax. Osseous structures appear intact. IMPRESSION: No acute findings. Finalized by Sami Beltran MD on 10/17/2024 7:16 PM Assessment/Plan: 1. Dysuria - POCT urinalysis dipstick only - amoxicillin (AMOXIL) 500 mg capsule; Take 1 capsule (500 mg total) by mouth 3 (three) times a day for 7 days. Dispense: 21 capsule; Refill: 0 - Urine culture (clean catch); Future 2. Enterococcus UTI - amoxicillin (AMOXIL) 500 mg capsule; Take 1 capsule (500 mg total) by mouth 3 (three) times a day for 7 days. Dispense: 21 capsule; Refill: 0 - Urine culture (clean catch); Future Continue to remain hydrated with drinking water and electrolyte replacement. Consider small meals 3-4 times per day to get protein and nutrients. Due to previous UTI infection will start on Amoxicillin 500 mg 1 capsule three times per day for 7 days. Previously treated with amoxicillin for 7 days. In reviewing the literature suggests that can be treated up to 14 days for uncomplicated UTI cystitis caused by Enterococcus. Ordered urine culture and will contact in 2-3 days when results known No problem-specific Assessment & Plan notes found for this encounter. Patient Instructions Continue to remain hydrated with drinking water and electrolyte replacement. Consider small meals 3-4 times per day to get protein and nutrients. Due to previous UTI infection will start on Amoxicillin 500 mg 1 capsule three times per day for 7 days. Ordered urine culture and will contact in 2-3 days when results known Follow up 3-4 weeks UTI follow up - Luiza Cuello DO 11/19/24 12:32 PM documented in this encounter [facility] 11-19-2024 Instructions Luiza Cuello DO - 11/19/2024 9:30 AM EDT Continue to remain hydrated with drinking water and electrolyte replacement. Consider small meals 3-4 times per day to get protein and nutrients. Due to previous UTI infection will start on Amoxicillin 500 mg 1 capsule three times per day for 7 days. Ordered urine culture and will contact in 2-3 days when results known The following attachments cannot be sent through Care Everywhere.Urinary tract infections in adults ([place])documented in this encounter [facility] 11-15-2024 Miscellaneous Notes 11/15 received HST order 11/15 Called PT LM to schedule sleep study. HST Order and 11/04/24 Milly Corley Epic Notes documented in this encounter [facility] 11-15-2024 Telephone encounter Note 11/15 received HST order 11/15 Called PT LM to schedule sleep study. HST Order and 11/04/24 Milly Corley Epic Notes [facility] 11-14-2024 Miscellaneous Notes Called Marianna regarding the screening colonoscopy referral that our office received from Camille Corley NP, left a message on her voicemail to call the office back to schedule an appointment. Also called on: 11/12 MAILBOX FULL TRC 3/5 LM TRC documented in this encounter [facility] 11-14-2024 Telephone encounter Note Called Marianna regarding the screening colonoscopy referral that our office received from Camille Corley NP, left a message on her voicemail to call the office back to schedule an appointment. Also called on: 11/12 MAILBOX FULL TRC 3/[address] [facility]-09-[facility]24 Miscellaneous Notes From 11/05/24 sleep lab encounter: Sleep Lab (Comp PSG/PAP) Priscilla Najera MD routed conversation to You; [facility] Sleep Front Desk3 days ago Ok for PSG, CPAP titration if qualifies PPG read and follow LVM to schedule [employer] sleep appt. Reminder in place for 2nd attempt *Currently PSG scheduled on 12/02 and titration on 12/17 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 Reminder in place for 2nd attempt *Currently PSG scheduled on 12/02 and titration on 12/17 [facility] Miscellaneous Notes ----- Message from YANIRA Jeong sent at 11/05/2024 1:25 PM EST ----- FSH demonstrates post menopausal. If would like to pursue hormone testing further would recommend seeing gynecology ----- Message ----- From: Interface - Lab Results/Orders In Sent: 11/04/2024 7:37 PM EST To: YANIRA Saleh Attempted to call patient with results, no answer, left voicemail. documented in this encounter [facility] 11-06-2024 Telephone encounter Note ----- Message from YANIRA Jeong sent at 11/05/2024 1:25 PM EST ----- FSH demonstrates post menopausal. If would like to pursue hormone testing further would recommend seeing gynecology ----- Message ----- From: Interface - Lab Results/Orders In Sent: 11/04/2024 7:37 PM EST To: YANIRA Saleh [facility] 11-06-2024 Telephone encounter Note Attempted to call patient with results, no answer, left voicemail. [facility] 11-05-2024 Miscellaneous Notes 11/04 Order received 11/05 Called PT LM to schedule sleep study. Comp Order and 11/04/24 Milly Corley Epic Notes documented in this encounter [facility] 11-05-2024 Telephone encounter Note 11/04 Order received 11/05 Called PT LM to schedule sleep study. Comp Order and 11/04/24 Milly Corley Epic Notes [facility] 11-04-2024 History of Presen t illness Narrative Subjective CC: New pt Patient ID: Marianna Stiles is a 49 y.o. female. HPI Marianna is here as a new patient, but also was seen in the ED on 10/17/2024 for chest pain. She quit smoking close to two months ago and was smoker for 15 years, slightly less than a pack a day. CTA done in the ED demonstrated some pulmonary nodules which require follow up in the distant future. She relates no shortness of breath or chest pain at this time. She had a holter monitor, stress test and echo in July of 2024, these were essentially normal. She also saw cardiology on 10/08/2024. She was placed on a low dose beta kiera at that time, but was unable to tolerate this, so stopped taking it. She sees behavior health on a regular basis, and also sees counseling. Relates has followed with them since 2007. She has a history of MDD, PTSD, and psychosis. Her main concern today is of sleep apnea. States she wakes up tired, wakes up choking, has a dry throat, and snores. She would like a sleep study. States this was ordered by another provider, sometime in the past, but the wait was over 6 months for the study, and she would like it done now. Appears was never scheduled. The following portions of the patient's history were reviewed and updated as appropriate: allergies, current medications, past family history, past medical history, past social history, past surgical history, problem list, and medication reconciliation was completed including current medication and post discharge medication. Review of Systems Constitutional: Positive for appetite change and fatigue. HENT: Negative. Eyes: Negative. Respiratory: Negative. Negative for shortness of breath. Cardiovascular: Positive for palpitations. Negative for leg swelling. Gastrointestinal: Negative. Musculoskeletal: Negative. Skin: Negative. Neurological: Negative. Hematological: Negative. Psychiatric/Behavioral: Positive for sleep disturbance. Objective Physical Exam Vitals and nursing note reviewed. Constitutional: Appearance: Normal appearance. She is well-developed. Comments: BMI 33.74 HENT: Head: Normocephalic and atraumatic. Right Ear: Hearing, tympanic membrane, ear canal and external ear normal. Left Ear: Hearing, tympanic membrane, ear canal and external ear normal. Nose: Rhinorrhea present. Mouth/Throat: Lips: [place]. Mouth: Mucous membranes are moist. Pharynx: Oropharynx is clear. Uvula midline. No oropharyngeal exudate. Eyes: General: Lids are normal. Conjunctiva/sclera: Conjunctivae normal. Neck: Vascular: No carotid bruit. Cardiovascular: Rate and Rhythm: Normal rate and regular rhythm. Pulses: Normal pulses. Heart sounds: Normal heart sounds. Pulmonary: Effort: Pulmonary effort is normal. Breath sounds: Normal breath sounds and air entry. No wheezing or rales. Abdominal: General: Bowel sounds are normal. There is no distension. Palpations: Abdomen is soft. Tenderness: There is no abdominal tenderness. Comments: Unable to detect mass due to body habitus Musculoskeletal: General: Normal range of motion. Cervical back: Normal range of motion and neck supple. No tenderness. Lymphadenopathy: Cervical: No cervical adenopathy. Skin: General: Skin is warm and dry. Neurological: General: No focal deficit present. Mental Status: She is alert and oriented to person, place, and time. Psychiatric: Attention and Perception: Attention normal. Mood and Affect: Mood is anxious. Speech: Speech is rapid and pressured. Behavior: Behavior is hyperactive. Behavior is cooperative. Thought Content: Thought content does not include homicidal or suicidal ideation. Thought content does not include homicidal or suicidal plan. Cognition and Memory: Memory normal. Assessment/Plan Marianna was seen to establish care. Main concern was that of sleep apnea. Also pulmonary nodules seen on CTA. Referral placed to pulmonology for sleep study and pulmonary nodule follow up. Labs in office today for : Lipid/vitamin B 12 and FSH Follows regularly with behavior health Referral placed for pulmonology Sleep study ordered Referral placed to general surgery for colonoscopy Follow up in 4 months for sleep apnea Marianna was seen today for establish care. Diagnoses and all orders for this visit: Palpitations Other sleep apnea - PSG Diagnostic; Future - Polysomnography 4 or more parameters with PAP titration; Future - Ambulatory referral to Pulmonology (Non-[facility]); Future Psychosis, unspecified psychosis type (CMS-HCC) Lipid screening - Lipid profile; Future MDD (major depressive disorder), recurrent, severe, with psychosis (CMS-HCC) - Lipid profile; Future - Vitamin B12; Future - FSH; Future Tobacco abuse Screen for colon cancer - Ambulatory referral to General Surgery; Future - Colonoscopy; Future Lung nodule seen on imaging study - Ambulatory referral to Pulmonology (Non-[facility]); Future YANIRA Saleh 11/04/241824 Venipuncture performed in the right arm. Patient had no adverse reactions. documented in this encounter [facility] 10-08-2024 History of Presen t illness Narrative Marianna Stiles Date of visit: 10/08/2024 Date of : 1975 Age: 49 y.o. Patient Active Problem List Diagnosis MDD (major depressive disorder), recurrent, severe, with psychosis ([facility]) ADHD (attention deficit hyperactivity disorder), inattentive type PTSD (post-traumatic stress disorder) Psychosis ([facility]) Suicidal ideation Palpitations Allergies Allergen Reactions Benadryl [Diphenhydramine Hcl] [place] like I was dying Current Outpatient Medications Medication Sig Dispense Refill FLUoxetine (PROzac) 20 mg capsule Take 1 capsule (20 mg total) by mouth in the morning. 90 capsule 1 traZODone (DESYREL) 100 mg tablet Take 1 tablet (100 mg total) by mouth nightly as needed for sleep. 30 tablet 1 No current facility-administered medications for this visit. Chief Complaint Patient presents with Follow-up EST PT F/U 3 MS ECHO, HM , STRESS, LABS DONE L/S MS SCHED W/ PT History of Present Illness SD is a 49 yo F who presents to the office today for her 3 month follow up. She has a hx of schizoaffective disorder, asthma, anxiety, depression. She originally presented to our practice for workup of daily palpitations for the past 3 years. Reports passing 1-2 years ago while standing at work for long period. No recurrent syncope since then but she does endorse occasional presyncope. Reported having occasional chest discomfort, described as tightness, not related to exertion, usually last for a minute or less. Reports feeling short of breath all the time even at rest. She was ordered a few tests. TTE from 07/16/24 had EF of 60-65% with no wall motion abnormalities nor significant valvulopathy. Stress test from 07/16/2024 was determined low risk and did not show ischemia. Holter monitor from 07/16/2024 showed primarily sinus rhythm with rare ectopy for which she was started on a low-dose beta-kiera. She did not tolerate the betablocker, it made her feel very uneasy and delirious, she had increased palpitations. Today, she denies CP, SOB, or palpitations at this time. She is wondering if she is in menopause, her previous syncopal episodes sound possibly neurocardiogenic. She had a hysterectomy a few years ago but does still have her ovaries. Patient was seen when Dr. Suh was readily available in office. Past Medical History: Diagnosis Date Anxiety Asthma Depression PTSD (post-traumatic stress disorder) No data recorded No data recorded No data recorded Past Surgical History: Procedure Laterality Date CARPAL TUNNEL RELEASE HYSTERECTOMY 2013 Family History Problem Relation Age of Onset Bipolar disorder Mother Schizophrenia Brother Schizophrenia Maternal Grandmother Social History Socioeconomic History Marital status: Spouse name: Not on file Number of children: Not on file Years of education: Not on file Highest education level: Not on file Occupational History Not on file Tobacco Use Smoking status: Former Current packs/day: 0.00 Types: Cigarettes Quit date: 09/18/2024 Years since quittin.0 Smokeless tobacco: Never Tobacco comments: chews nicotine gum Vaping Use Vaping status: Never Used Substance and Sexual Activity Alcohol use: Not Currently Comment: occasionally Drug use: No Sexual activity: Yes Partners: Male control/protection: Post-menopausal Other Topics Concern Caffeine Use Yes Social History Narrative Not on file Social Drivers of Health Financial Resource Strain: Not on file Food Insecurity: No Food Insecurity (10/08/2024) Hunger Screening Food Insecurity - Worry: Never True Food Insecurity - Inability: Never True Transportation Needs: Not on file Physical Activity: Not on file Stress: Not on file Social Connections: Not on file Interpersonal Safety: Not on file Housing Instability: Not on file Review of Systems Review of Systems Constitutional: Negative. HENT: Negative. Eyes: Positive for blurred vision and double vision. Cardiovascular: Positive for chest pain and palpitations. Respiratory: Negative. Endocrine: Negative. Hematologic/Lymphatic: Bruises/bleeds easily. Skin: Negative. Musculoskeletal: Positive for back pain. Gastrointestinal: Positive for change in bowel habit and constipation. Genitourinary: Negative. Neurological: Positive for dizziness. Psychiatric/Behavioral: Positive for depression. The patient is nervous/anxious. Allergic/Immunologic: Positive for environmental allergies. Vascular: Negative. CARDIOVASCULAR: Please review HPI. Physical Examination General appearance: Alert, oriented and cooperative. In no acute distress. Skin: Warm and dry to touch. Head: Normocephalic, without obvious abnormality, atraumatic. Ears, Nose, Mouth, Throat: Throat clear without erythema or exudate. Dentition intact. Eyes: Conjunctivae unremarkable, EOM intact. Neck: No JVD, No carotid bruit. Neck supple, trachea midline. Respiratory: Clear to auscultation bilaterally, no use of accessory muscles. Cardiovascular: RRR with normal S1 and S2 with no murmurs. Gastrointestinal: Soft, non-tender. Bowel sounds normal. Musculoskeletal: No peripheral edema. Neurologic: Oriented to time, person and place, affect appropriate. No focal/major motor defects noted. Psychiatric: Appropriate mood, memory and judgement. VITAL SIGNS: BP 100/72 Pulse 85 Ht 160 cm (5' 3 ) Wt 86.6 kg (191 lb) SpO2 98% BMI 33.83 kg/m No orders of the defined types were placed in this encounter. Medications Discontinued During This Encounter Medication Reason metoprolol tartrate (LOPRESSOR) 25 mg tablet Patient Stopped On Own IMPRESSIONS/PLAN 1. Palpitations 2. Neurocardiogenic pre-syncope - Follicle stimulating hormone; Future PLAN Stress test was low risk. HM was unremarkable for findings related to syncope/presyncope Echo showed preserved LVEF BP and HR are controlled. No further testing at this time. Not on cardiac medications as she did not tolerate the betablocker. Have ordered FSH to help determine if pt is perimenopausal, discussed finding PCP in future. Recommend follow up as needed. TODAYS ORDERS Orders Placed This Encounter Procedures Follicle stimulating hormone FOLLOW UP Return if symptoms worsen or fail to improve. PCP: NO PCP, NO PCP Referring Physician: No referring provider defined for this encounter. YANIRA Knox 10/08/24 1559 [facility] Instructions YANIRA Knox - 10/08/2024 3:30 PM EST Stress test did not show anything negative Echo showed good heart function Monitor did not show any causes for passing out BP and HR are controlled. Have ordered FSH blood work. Recommend follow up as needed. documented in this encounter [facility] 10-07-2024 Miscellaneous Notes Left message for patient to remind them to bring their most current medication list with them to their appointment. documented in this encounter [facility] 10-07-2024 Telephone encounter Note Left message for patient to remind them to bring their most current medication list with them to their appointment. [facility] 07-24-2024 Miscellaneous Notes Teddy Estrada RN 07/24/2024 8:57 AM EST Back to Top Holter results and Kathleen recommendations called and reviewed with patient. Pt agreeable to the TFTs and would like new med sent to [facility]. Pt will call next month to schedule the 09/2024 f/u appt. Addie Henriquez MD 07/23/2024 6:43 PM EST Reviewed. Recommend checking thyroid function. Starting Lopressor 12.5mg bid. Can maintain scheduled follow up visit. Thanks documented in this encounter [facility] 07-24-2024 Telephone encounter Note Teddy Estrada RN 07/24/2024 8:57 AM EST Back to Top Holter results and Kathleen recommendations called and reviewed with patient. Pt agreeable to the TFTs and would like new med sent to [facility]. Pt will call next month to schedule the 09/2024 f/u appt. Addie Henriquez MD 07/23/2024 6:43 PM EST Reviewed. Recommend checking thyroid function. Starting Lopressor 12.5mg bid. Can maintain scheduled follow up visit. Thanks [facility] 06-14-2024 History of Presen t illness Narrative Marianna Stiles Date of visit: 06/14/2024 Date of : 1975 Age: 49 y.o. Patient Active Problem List Diagnosis MDD (major depressive disorder), recurrent, severe, with psychosis ([facility]) ADHD (attention deficit hyperactivity disorder), inattentive type PTSD (post-traumatic stress disorder) Psychosis ([facility]) Suicidal ideation Allergies Allergen Reactions Lorazepam Other (See Comments) depression Current Outpatient Medications Medication Sig Dispense Refill methylphenidate CD (METADATE CD) 10 mg CR capsule Take 1 capsule (10 mg total) by mouth daily. Max Daily Amount: 10 mg 30 capsule 0 OLANZapine (ZyPREXA) 2.5 mg tablet Take 1 tablet (2.5 mg total) by mouth nightly. 30 tablet 1 No current facility-administered medications for this visit. 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 New to our practice. Here for evaluation of palpitations. Patient stated that she has been having palpitations for 3 years on daily basis. No recurrent dizzy spells. Reports passing 1-2 years ago while standing at work for long period. No recurrent syncope/presyncope since then. Reported having occasional chest discomfort, described as tightness, not related to exertion, usually last for a minute or less. Reports feeling short of breath all the time even at rest. Reported having orthopnea and PND. Stated that she snores and thinks he has sleep apnea once referral to get tested for sleep apnea. Reported having on and off leg swelling. Occupation: Does not work. Tobacco: Smoke 15 cigerrets per day, for 3 yrs Alcohol: None Recreational drugs: None Family history: Mom CHF. No LA, or CAD or stroke. EKG 02/16/2024: Sinus rhythm, low voltage precordial leads. Past Medical History: Diagnosis Date Anxiety Asthma Depression PTSD (post-traumatic stress disorder) No data recorded No data recorded No data recorded Past Surgical History: Procedure Laterality Date CARPAL TUNNEL RELEASE HYSTERECTOMY 2013 Family History Problem Relation Age of Onset Bipolar disorder Mother Schizophrenia Brother Schizophrenia Maternal Grandmother Social History Socioeconomic History Marital status: Spouse name: Not on file Number of children: Not on file Years of education: Not on file Highest education level: Not on file Occupational History Not on file Tobacco Use Smoking status: Every Day Types: Cigarettes Smokeless tobacco: Never Tobacco comments: chews nicotine gum Vaping Use Vaping status: Never Used Substance and Sexual Activity Alcohol use: Not Currently Comment: occasionally Drug use: No Sexual activity: Yes Partners: Male control/protection: Post-menopausal Other Topics Concern Caffeine Use Yes Social History Narrative Not on file Social Determinants of Health Financial Resource Strain: Not on file Food Insecurity: No Food Insecurity (06/14/2024) Hunger Screening Food Insecurity - Worry: Never True Food Insecurity - Inability: Never True Transportation Needs: Not on file Physical Activity: Not on file Stress: Not on file Social Connections: Not on file Interpersonal Safety: Not on file Housing Instability: Not on file Review of Systems Review of Systems Respiratory: Negative for cough, hemoptysis and wheezing. Gastrointestinal: Negative for abdominal pain, change in bowel habit and hematochezia. Genitourinary: Negative for dysuria and hematuria. Neurological: Negative for focal weakness, headaches and paresthesias. CARDIOVASCULAR: Please review HPI. Physical Examination General appearance: Alert, oriented and cooperative. In no acute distress. Skin: Warm and dry to touch. Head: Normocephalic, without obvious abnormality, atraumatic. Ears, Nose, Mouth, Throat: Throat clear without erythema or exudate. Dentition intact. Eyes: Conjunctivae unremarkable, EOM intact. Neck: No JVD, No carotid bruit. Neck supple, trachea midline. Respiratory: Clear to auscultation bilaterally, no use of accessory muscles. Cardiovascular: RRR with normal S1 and S2 with no murmurs. Gastrointestinal: Soft, non-tender. Bowel sounds normal. Musculoskeletal: No peripheral edema. Neurologic: Oriented to time, person and place, affect appropriate. No focal/major motor defects noted. Psychiatric: Appropriate mood, memory and judgement. VITAL SIGNS: BP 138/80 (BP Site: Left Arm, BP Postition: Sitting) Pulse 70 Ht 160 cm (5' 2.99 ) Wt 84.4 kg (186 lb) SpO2 99% BMI 32.96 kg/m No orders of the defined types were placed in this encounter. There are no discontinued medications. IMPRESSIONS/PLAN 1. Palpitations - POCT EKG 2. Obesity (BMI 30.0-34.9) 3. Intermittent palpitations - Ambulatory referral to Cardiology ([facility]) 4. SOB (shortness of breath) - Echo complete W/O contrast; Future - Holter monitor 24-48 hour; Future - X-ray chest 2 views; Future - BNP; Future 5. Chest pain, unspecified type - Stress test (exercise only); Future 6. Snoring - Referral to [facility] - [place], [place]; Future Previous cardiac related labs and test results were reviewed and discussed with the patient. Palpitations Atypical chest pain SOB Anxiety disorder Asthma Hx of psychosis on Olanzapine Obesity, BMI 32 Patient new to our practice. Complaining of palpitations, shortness of breath, atypical chest pain. Echocardiogram ordered for baseline cardiac function. Exercise treadmill stress test to rule out ischemia. 24 hour Holter monitor to assess for any underlying arrhythmias. Chest x-ray and BNP to assess for any pulmonary pathology and rule out CHF. Will follow-up on results with recommendations as needed. Follow-up in 3 months or sooner if needed. Patient to call us with any cardiac questions or concerns. TODAYS ORDERS Orders Placed This Encounter Procedures X-ray chest 2 views BNP Referral to [facility] - [place], [place] Holter monitor 24-48 hour Stress test (exercise only) POCT EKG Echo complete W/O contrast FOLLOW UP Return in about 3 months (around 09/14/2024). PCP: HARJINDER Collado Referring Physician: No referring provider defined for this encounter. Pt scheduled for testing in office and instructions reviewed with pt. documented in this encounter [facility] 06-13-2024 Miscellaneous Notes Called patient to remind them to bring their most current copy of their medication list with them to their appt. Patient verbalizes understanding. documented in this encounter [facility] 06-13-2024 Telephone encounter Note Called patient to remind them to bring their most current copy of their medication list with them to their appt. Patient verbalizes understanding. [facility] 04-25-2024 Note XR CHEST 2 VWS History: Shortness breath Procedure: 2 view PA and Lateral chest radiograph. Comparison: 08/08/2019 Findings: The heart and lungs show no acute findings, and the mediastinum and louisa are grossly negative . No pneumothorax. Impression: No acute pulmonary process. Finalized by Yousif Webb MD on 04/25/2024 1:41 PM [facility] 09-19-2023 Miscellaneous Notes 09/19 pt's called to schedule Advised we do not have order or notes. Gave him our fax number. documented in this encounter [facility] 09-19-2023 Telephone encounter Note 09/19 pt's called to schedule Advised we do not have order or notes. Gave him our fax number. [facility] 08-09-2023 Evaluation note Encounter Date Diagnosis Assessment [...] instructions to follow-up for any further concerns. [facility] 12-05-2023 Evaluation note* Encounter Date Diagnosis Assessment Notes Treatment Notes Treatment Clinical Notes Aug, Suspected COVID-19 virus infection (ICD-10 [...] up with your primary care provider or tiler's assistant as discussed for your feet. Aug, Sore throat (ICD-10 - J02.9) Aug, Rash of both feet (ICD-10 - R21) [facility] 09-08-2023 Evaluation note* Encounter Date Diagnosis Assessment Notes Treatment Notes Treatment Clinical Notes May, Exposure to COVID-19 virus (ICD-10 [...] treatment plan. Patient left in stable condition [facility] Other 09-06-2022 Evaluation note* Encounter Date Diagnosis Assessment Notes Treatment Notes Treatment Clinical Notes May, Contact with and (suspected) exposure [...] treatment plan. Patient left in stable condition [facility] Other Evaluation + Plan note No data available for this section [facility]* Diagnosis Palpitations- Primary Neurocardiogenic pre-syncope [facility] Diagnosis Palpitations- Primary Obesity (BMI 30.0-34.9) Intermittent palpitations SOB (shortness of breath) Shortness of breath Chest pain, unspecified type Snoring Other dyspnea and respiratory abnormality [facility]* Diagnosis Intermittent palpitations- Primary Holter monitor, abnormal [facility]* Diagnosis Palpitations- Primary Other sleep apnea Psychosis, unspecified psychosis type ([facility]) Lipid screening Screening for lipoid disorders MDD (major depressive disorder), recurrent, severe, with psychosis ([facility]) Tobacco abuse Tobacco use disorder Screen for colon cancer Special screening for malignant neoplasms, colon Lung nodule seen on imaging study documented [facility] Diagnosis Other sleep apnea- Primary [facility]* Diagnosis Dysuria- Primary Enterococcus UTI documented [facility]* Diagnosis Pulmonary nodule- Primary Other diseases of lung, not elsewhere classified [facility]* Diagnosis Menopause- Primary Symptomatic menopausal or female climacteric states Vasomotor symptoms due to menopause Hormone disorder Unspecified endocrine disorder Cystitis Unspecified cystitis [facility] Diagnosis Enterococcus UTI- Primary Recurrent UTI (urinary tract infection) [facility]* Diagnosis Abnormal stools- Primary Abnormal feces Left sided abdominal pain Abdominal pain, unspecified site Stool mucus Nonspecific abnormal finding in stool contents [facility]* Diagnosis Tobacco abuse- Primary Tobacco use disorder Lung nodule seen on imaging study Obstructive sleep apnea syndrome Obstructive sleep apnea (adult) (pediatric) documented in [facility]* Diagnosis Abnormal stools- Primary Abnormal feces Left sided abdominal pain Abdominal pain, unspecified site documented in [facility]* Diagnosis Epigastric pain- Primary Abdominal pain, epigastric Gastroesophageal reflux disease, unspecified whether esophagitis present Drug-induced constipation Other constipation Rectal bleeding Hemorrhage of rectum and anus documented [facility]* Diagnosis Chronic idiopathic constipation- Primary Unspecified constipation documented [facility]* Diagnosis Urinary frequency- Primary MDD (major depressive disorder), recurrent, severe, with psychosis ([facility]) ADHD (attention deficit hyperactivity disorder), inattentive type Psychosis, unspecified psychosis type ([facility]) documented in [facility]* Diagnosis MELISSA (obstructive sleep apnea)- Primary Obstructive sleep apnea (adult) (pediatric) documented in this [facility]* Diagnosis Epigastric pain- Primary Abdominal pain, epigastric Gastroesophageal reflux disease, unspecified whether esophagitis present Chronic idiopathic constipation Unspecified constipation documented [facility]* Diagnosis MELISSA (obstructive sleep apnea)- Primary Obstructive sleep apnea (adult) (pediatric) Class 1 obesity due to excess calories with serious comorbidity and body mass index (BMI) of 34.0 to 34.9 in adult Shortness of breath [facility] in [facility] Narrative - Reported* Type Description Date Medical History Anxiety and depression Medical History adhd Surgical History hysterectomy Hospitalization History see above surgical histo ry [facility] Other Hospital Discharge instructions No data available for this section [facility] InstructionsNot on filedocumented in this encounter [facility] filedocumented in this [facility] filedocumented in this encounter [facility] filedocumented in this encounter [facility] on filedocumented in this encounter [facility]* Attachments The following attachments cannot be sent through Care Everywhere. * Sleep apnea in adults ([place]) [facility] documented in [facility]ructionsNot on file documented in [facility] System[facility]ructionsNot on file documented in [facility]* Attachments The following attachments cannot be sent through Care Everywhere. * Nausea and Vomiting, Adult ([place]) [facility]ructionsNot on file documented in [facility] System[facility]ructionsNot on file documented in this [facility] System[facility]ructionsNot on file documented in this [facility] System[facility]ructionsNot on file documented in this [facility] SystemInstructionsNot on file documented in [facility]* Attachments The following attachments cannot be sent through Care Everywhere. * Asymptomatic bacteriuria ([place]) documented [facility] System[facility]ructionsNot on file documented in this encounter[facility] SystemInstructionsNot on file documented in this [facility] SystemInstructionsNot on file documented in this encounterPro[facility] SystemInstructionsNot on file documented in this [facility] SystemProgress note No data available for this section [facility] Reason for referral (narrative)* Consultation (Routine) - Pending Review Specialty Diagnoses / Procedures Referred By Rajat hendrickson Referred To Contact Pulmonary Medicine Diagnoses Snoring Addie Henriquez MD [address] [place] [address] Yvette Suh DO [address] [place] [address] Referral ID Status Reason Start Date Expiration Date Visits Requested Visits Authorized [id number] Pending Review Specialty Services Required 06/14/2025 1 1 * Cardiology (Routine) - Pending Review Specialty Diagnoses / Procedures Referred By Contac t Referred To Contact Diagnoses Chest pain, unspecified type Procedures Stress test (exercise only) Addie Henriquez MD [address] [place] [address] Referral ID Status Reason Start Date Expiration Date V isits Requested Visits Authorized [id number] Pending Review 06/14/2024 06/14/2025 5 5 * Cardiology (Routine) - Pending Review Specialty Diagnoses / Procedures Referred By Contac t Referred To Contact Diagnoses SOB (shortness of breath) Procedures Holter monitor 24-48 hour Addie Henriquez MD [address] [place] [address] Referral ID Status Reason Start Date Expiration Date V isits Requested Visits Authorized [id number] Pending Review 06/14/2024 06/14/2025 1 1 * Cardiology (Routine) - Pending Review Specialty Diagnoses / Procedures Referred By Contac t Referred To Contact Diagnoses SOB (shortness of breath) Procedures Echo complete W/O contrast Addie Henriquez MD [address] [place] [address] Referral ID Status Reason Start Date Expiration Date V isits Requested Visits Authorized [id number] Pending Review 06/14/2024 06/14/2025 1 1 [facility] Summary Purpose Family History No Family History Records FoundNo Family History Records FoundNo Family History Records FoundNo Family History Records FoundNo Family History Records FoundNo Family History Records FoundNo Family History Records Found No data available for this section No Family History Records FoundNo Family History Records Found Advance Directives No Advanced Directives Records FoundNo Advanced Directives Records FoundNo Advanced Directives Records FoundNo Advanced Directives Records FoundNo Advanced Directives Records FoundNo Advanced Directives Records FoundNo Advanced Directives Records FoundNo Advanced Directives Records FoundNo Advanced Directives Records Found Additional Source Comments INFORMATION SOURCE (unrecogn ized section and content) DATE CREATED AUTHOR 08/27/2021 [facility] DATE CREATED AUTHOR AUTHOR'S ORGANIZ ATION 08/16/2022 [facility] DATE CREATED AUTHOR AUTHOR'S ORGANIZ ATION 01/24/2024 [facility] DATE CREATED AUTHOR AUTHOR'S ORGANIZ ATION 12/10/2024 [facility] DATE CREATED AUTHOR AUTHOR'S ORGANIZ ATION 01/15/2025 [facility] DATE CREATED AUTHOR AUTHOR'S ORGANIZ ATION 01/31/2025 [facility] DATE CREATED AUTHOR AUTHOR'S ORGANIZ ATION 02/05/2025 [facility] DATE CREATED AUTHOR AUTHOR'S ORGANIZ ATION 03/27/2025 [facility] DATE CREATED AUTHOR AUTHOR'S ORGANIZ ATION 04/16/2025 [facility] REASON FOR VISIT (unrecogniz ed section and content) Reason Comments Follow-up EST PT F/U 3 MS ECHO , HM , STRESS, LABS DONE L/S MS SCHED W/ PT Reason Onset Date Comments Sleep Lab 09/19/2023 SCHEDULING Reason Comments 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 INTERMITTENT PALPITATIONS SCHED W/ PT Specialty Diagnoses / Procedures Referred By Rajat hendrickson Referred To Contact Cardiology Diagnoses Intermittent palpitations [facility] [address] [place] [address] [facility] [address] [place] [address] Referral ID Status Reason Start Date Expiration Date Visits Requested Visits Authorized [id number] Pending Review Specialty Services Required 05/02/2024 05/02/2025 1 1 Reason Onset Date Comments TFTs and Lopressor 07/24/2024 Reason Comments Establish Care Reason Onset Date Comments Sleep Lab 11/05/2024 Comp PSG/PAP Reason Onset Date Comments Sleep Lab 11/15/2024 HST Reason Comments Bladder Pain Reason Comments Menopause Reason Comments Follow-up Reason Comments Abdominal Pain Reason Comments New Patient Lung NoduleCXR: 10/05TA: 10/17/2024PFT: not completedHST: pt cancelled Specialty Diagnoses / Procedures Referred By Contac t Referred To Contact Pulmonary Medicine Diagnoses Lung nodule seen on imaging study Camille Corley, HANDY MAN-PROJECT PRODUCTION ENGINEER [address] [place] [address] Phone: tel: fax: Lauryn Lei MD [address] [place] [address] Phone: tel: fax: Referral ID Status Reason Start Date Expiration Date V isits Requested Visits Authorized [id number] Closed Specialty Services Required 11/04/2024 11/04/2025 1 1 Reason Onset Date Comments Sleep Lab 01/10/2025 COMP Reason Comments GI Problem Patient presenting w ith complaints of abdominal pain, rectal bleeding, and is due for colonoscopy. Patient states it has been days since her last bowel movement, is on trazodone and feels this stops her digestive system, takes heavy doses of laxatives. Eats a lot of fiber. Occasional heartburn. Patient states her stool was very thin and narrow over the weekend, and states orange colored blood, as well as mucous, and strained. States she had left over cipro and took this and this helped relieve pain. Abdominal Pain She states that last week she was 180lbs and is now 193.6. Reason Comments Follow-up Reason Onset Date Comments Med Refill 02/25/2025 Reason Onset Date Comments EGD 01/14/2025 Colonoscopy 01/14/2025 Reason Comments Sleep Apnea Compliance only SE p atient DME: [facility] Care Teams (unrecognized sec tion and content) Temperature Inspector Relationship Specialty Start Date End Date Services, [facility] [address] [place], [place] PCP - General Family Medicine 02/16/24 Temperature Inspector Relationship Specialty Start Date End Date No Pcp, [place] [address] PCP - General Family Medicine 10/08/24 Temperature Inspector Relationship Specialty Start Date End Date Shaikh Hollis MD [address] [place] [address] PCP - General Internal Medicine 08/11/22 Temperature Inspector Relationship Specialty Start Date End Date Services, [facility] [address] [place], [place] PCP - General Family Medicine 02/16/24 Temperature Inspector Relationship Specialty Start Date End Date Services, [facility] [address] [place] PCP - General Family Medicine 02/16/24 Temperature Inspector Relationship Specialty Start Date End Date Services, [facility] [address] [place] PCP - General Family Medicine 02/16/24 Temperature Inspector Relationship Specialty Start Date End Date Services, [facility] [address] [place] PCP - General Family Medicine 02/16/24 Temperature Inspector Relationship Specialty Start Date End Date Camille Corley APRN-CNP [address] [place] [address] PCP - General Family Medicine 11/04/24 Temperature Inspector Relationship Specialty Start Date End Date Camille Corley APRN-CNP [address], [place] [address] PCP - General Family Medicine 11/04/24 Temperature Inspector Relationship Specialty Start Date End Date Camille Corley APRN-CNP [address], [place] [address] PCP - General Family Medicine 11/04/24 Temperature Inspector Relationship Specialty Start Date End Date [facility] [address], [place] [address] PCP - General Family Medicine 11/04/24 Temperature Inspector Relationship Specialty Start Date End Date [facility] [address], [place] [address] PCP - General Family Medicine 11/04/24 Temperature Inspector Relationship Specialty Start Date End Date [facility] [address], [place] [address] PCP - General Family Medicine 11/04/24 Temperature Inspector Relationship Specialty Start Date End Date Camille [facility] [address], [place] [address] PCP - General Family Medicine 11/04/24 Temperature Inspector Relationship Specialty Start Date End Date Camille Corley [facility] [address], [place] [address] PCP - General Family Medicine 11/04/24 Temperature Inspector Relationship Specialty Start Date End Date Camille Cor[facility] [address], [place] [address] PCP - General Family Medicine 11/04/24 Temperature Inspector Relationship Specialty Start Date End Date Camille [facility] [address], [place] [address] PCP - General Family Medicine 11/04/24 Temperature Inspector Relationship Specialty Start Date End Date Camille [facility] [address], [place] [address] PCP - General Family Medicine 11/04/24 Temperature Inspector Relationship Specialty Start Date End Date Camille Cor[facility] [address], [place] [address] PCP - General Family Medicine 11/04/24 Temperature Inspector Relationship Specialty Start Date End Date Camille Cor[facility] [address], [place] [address] PCP - General Family Medicine 11/04/24 Temperature Inspector Relationship Specialty Start Date End Date Camille Cor[facility] [address], [place] [address] PCP - General Family Medicine 11/04/24 Temperature Inspector Relationship Specialty Start Date End Date Camille Cor[facility] [address], [place] [address] PCP - General Family Medicine 11/04/24 Temperature Inspector Relationship Specialty Start Date End Date Camille Corley [facility] [address], [place] [address] PCP - General Family Medicine 11/04/24 Temperature Inspector Relationship Specialty Start Date End Date JoryCamille sargent [facility] [address], [place] [address] PCP - [facility] Medicine 11/04/24 Temperature Inspector Relationship Specialty Start Date End Date JoryCamille torres [facility] [address], [place] [address] PCP - [facility] Medicine 11/04/24 Temperature Inspector Relationship Specialty Start Date End Date Jory Camille Vivas [facility] [address], [place] [address] PCP - General [facility] Medicine 11/04/24 Temperature Inspector Relationship Specialty Start Date End Date JoryCamille sargent [facility] [address], [place] [address] PCP - [facility] Medicine 11/04/24 FOR RECORDS PERTAINING TO PATIENTS WHO ARE [...] BE BASED ON THE PRIMARY CLINICAL RECORDS. [employer] [facility]. provides no warranty or guarantee of the accuracy or completeness of information in this document.
--- NOTE | 2025-05-13 20:06 | ED.URI1 ---
HPI - URI/Sore Throat General Chief Complaint: Upper Respiratory Infection Stated Complaint: Upper Respiratory Infection Time Seen by Provider: 05/13/25 20:02 Source: patient History of Present Illness HPI Narrative: ill for past 5 days. Headache, sinus congestion, body aches. gen weakness. Nausea without vomiting. fever at home but none here. Has sleep apnea but not able to wear Cpap because she is so congested. no abdominal pain. also has sore throat but no problem swallowing Related Data Home Medications ?Medication ?Instructions ?Recorded ?Confirmed fluoxetine 20 mg capsule 20 mg PO QAM 09/09/23 09/26/23 methylphenidate HCl 10 mg biphasic 10 mg PO DAILY 09/09/23 09/26/23 30-70 capsule,extended release trazodone 50 mg tablet 50 mg PO QPM 09/09/23 09/26/23 alprazolam 0.25 mg tablet 0.25 mg PO DAILY PRN anxiety 09/26/23 09/26/23 venlafaxine 37.5 mg 37.5 mg PO .daily 09/26/23 09/26/23 capsule,extended release 24 hr Previous Rx's ?Medication ?Instructions ?Recorded doxycycline hyclate 100 mg capsule 100 mg PO BID 10 days #20 caps 09/26/23 ketorolac 10 mg tablet 10 mg PO Q8H PRN pain #14 tabs 09/26/23 tobramycin 0.3 % eye drops 1 drp ophthalmic (eye) TID 7 days 09/26/23 #5 mL Allergies Allergy/AdvReac Type Severity Reaction Status Date / Time No Known Drug Allergies Allergy Verified 09/09/23 10:05 Review of Systems ROS Status of ROS 10 or more systems reviewed and unremarkable except as noted in history and below [facility] Social History Smoking status: Current every day smoker Little interest or pleasure in doing things: not at all Feeling down, depressed, or hopeless: not at all Exam Constitutional Vital Signs, click to edit/add: Last Vital Signs Temp 98.6 F 05/13/25 19:53 Pulse 73 05/13/25 19:53 Resp 16 05/13/25 19:53 BP 123/70 05/13/25 19:53 Pulse Ox 100 05/13/25 21:07 O2 Del Method Room Air 05/13/25 21:07 Common normals: no apparent distress, average body habitus, oriented x3, no limitations, healthy appearing, alert and well nourished [facility] Common normals: normocephalic, head/scalp atraumatic, moist oral mucous membranes and oropharynx normal Face and sinus: normal facial exam Other: mild maxillary sinus tenderness Eye Common normals: PERRL, EOMs intact bilaterally and conjunctivae normal Respiratory Common normals: normal respiratory effort, no retractions, no use of accessory muscles and clear to auscultation bilaterally Cardio Common normals: regular rate, regular rhythm, S1 normal heart sound and S2 normal heart sound GI Common normals: Normal to inspection, nondistended, normoactive bowel sounds present, soft to palpation and non-tender Extremity Common normals: normal to inspection and full ROM Neuro Common normals: oriented x3, CN's II-XII intact bilaterally, moves all extremities and no focal motor deficits Psych Appearance: grossly normal Course Vital Signs Vital signs: Vital Signs Temperature 98.6 F 05/13/25 19:53 Pulse Rate 73 05/13/25 19:53 Respiratory Rate 16 05/13/25 19:53 Blood Pressure 123/70 05/13/25 19:53 Pulse Oximetry 97 05/13/25 19:53 Oxygen Delivery Method Room Air 05/13/25 19:53 Temperature 98.6 F 05/13/25 19:53 Pulse Rate 73 05/13/25 19:53 Respiratory Rate 16 05/13/25 19:53 Blood Pressure 123/70 05/13/25 19:53 Pulse Oximetry 100 05/13/25 21:07 Oxygen Delivery Method Room Air 05/13/25 21:07 MDM - URI/Sore Throat MDM Narrative Medical decision making narrative: patient ill for the past 5 days with sinus congestion, sinus headache, body aches and fever. No respiratory distress. Chest clear. cxray clear. CT with findings of acute bacterial sinusitis and COVID19 swab positive. Patient not candidate for paxlovid. Given dose of Rocephin and discharged home with Augmentin. In stable condition. also provided a prescription for zofran to use prn Lab Data Labs: Lab Results 05/13/25 05/13/25 05/13/25 Range/Units 20:00 20:47 20:53 Sodium 141 (136-145) mmol/L Potassium 3.7 (3.5-5.1) mmol/L Chloride 104 (98-107) mmol/L Carbon Dioxide 29.3 (21.0-32.0) mmol/L Anion Gap 11.4 BUN 17.0 (7.0-18.0) mg/dL Creatinine 0.95 (0.55-1.02) mg/dL Est GFR ( Amer) >60 (>=60 mL/min/1.73m^2) Est GFR (Non-Af Amer) >60 (>=60 mL/min/1.73m^2) BUN/Creatinine Ratio 17.9 Glucose 88 (74-106) mg/dL Lactate 0.5 (0.4-2.0) mmol/L Calcium 8.5 (8.5-10.1) mg/dL Total Bilirubin 0.2 (0.2-1.0) mg/dL AST 23 (15-37) U/L ALT 50 (14-59) U/L Alkaline Phosphatase 96 (46-116) U/L Total Protein 8.0 (6.4-8.2) g/dL Albumin 3.5 (3.4-5.0) g/dL Globulin 4.5 g/dL Albumin/Globulin Ratio 0.8 Urine Color Lt. yellow (YELLOW) Urine Clarity Clear (CLEAR) Urine pH 6.0 (5.0-9.0) Ur Specific [place] 1.025 (1.005-1.025) Urine Protein Negative (NEG/TRACE) mg/dL Urine Glucose (UA) Negative (NEGATIVE) mg/dL Urine Ketones Negative (NEGATIVE) mg/dL Urine Occult Blood Negative (NEGATIVE) Urine Nitrite Negative (NEGATIVE) Urine Bilirubin Negative (NEGATIVE) Urine Urobilinogen 0.2 (0.2-1.0) EU/dL Ur Leukocyte Esterase Trace A (NEGATIVE) Urine RBC 0-2 (0-2) #/HPF Urine WBC 2-5 A (NONE SEEN) #/HPF Ur Squamous Epith Cells Rare (NONE/RARE) #/LPF Urine Crystals None seen (None Seen) #/HPF Urine Bacteria Trace A (NONE SEEN) #/HPF Urine Casts None seen (NONE SEEN) #/LPF Urine Mucus None seen (NONE SEEN) Ur Culture Indicated? No Influenza Type A Ag Negative Influenza Type B Ag Negative SARS-CoV-2 Ag (CV2AG) Positive A (NEGATIVE) Discharge Plan Discharge Chief Complaint: Upper Respiratory Infection Clinical Impression: COVID-19, Acute bacterial sinusitis Patient Disposition: Home, Self-Care Prescriptions / Home Meds: No Action trazodone 50 mg tablet 50 mg PO QPM methylphenidate HCl 10 mg capsule, ER biphasic 30-70 10 mg PO DAILY fluoxetine 20 mg capsule 20 mg PO QAM venlafaxine 37.5 mg capsule,extended release 24hr 37.5 mg PO .daily alprazolam 0.25 mg tablet 0.25 mg PO DAILY PRN (Reason: anxiety) doxycycline hyclate 100 mg capsule 100 mg PO BID 10 Days Qty: 20 0RF ketorolac 10 mg tablet 10 mg PO Q8H PRN (Reason: pain) Qty: 14 0RF tobramycin 0.3 % drops 1 drp ophthalmic (eye) TID 7 Days Qty: 5 0RF Rx Instructions: left eye Print Language: [place] Instructions: Sinusitis (ED), How to Recover from COVID-19 at Home (ED) Additional Instructions: drink plenty of fluids. Use ibuprofen or similar for pain . Follow up with your doctor next week Referrals: [facility] [Primary Care Provider, Unknown] - 1 week
--- NOTE | 2025-05-13 20:11 | CT_ITS ---
The [address] [address] Patient Name: BILLY GIBSON MRN: [id number] date: 1975 Sex: F Assigned Patient Location: ER Current Patient Location: ER Accession/Order Number: [id number] Exam Date: 05/13/2025 20:23 Report Date: 05/13/2025 21:01 At the request of: JOSE GRISSOM MD Procedure: CT facial bones wo con MAXILLOFACIAL CT WITHOUT CONTRAST: CLINICAL HISTORY: sinusitis COMPARISON: None TECHNIQUE: Spiral axial unenhanced images were obtained through the facial bones. Coronal and sagittal reconstructions were also reviewed. This CT exam was performed using one or more following dose reduction techniques: Automated exposure control, adjustment of the mA and/or kV according to patient size, or use of iterative reconstruction technique. FINDINGS: Trace left frontal air-fluid level. Mild frontal sinus mucosal thickening. Thickening left frontal sinus drainage pathway. Akan-xi-xfftncqf ethmoid sinus mucosal thickening. Moderate right mild left maxillary sinus air-fluid levels with mild mucoperiosteal thickening. Trace sphenoid sinus air-fluid levels. Rightward nasal septal deviation identified with rightward directed spur. There is thickening both infundibular regions.. CT/CT facial bones wo con IMPRESSION: MULTIFOCAL PARANASAL SINUS DISEASE AND AIR-FLUID LEVELS SUGGESTIVE ACUTE BACTERIAL SINUSITIS. Impression dictated by: Brad Esteves M.D. 05/13/2025 9:01 PM Dictation Location: [place] [address] Electronically authenticated by: [id number] Y Date: 05/13/2025 21:01
--- NOTE | 2025-05-13 20:11 | XR_ITS ---
The [address] [address] Patient Name: BILLY GIBSON MRN: [id number] date: 1975 Sex: F Assigned Patient Location: ER Current Patient Location: ER Accession/Order Number: [id number] Exam Date: 05/13/2025 20:23 Report Date: 05/13/2025 21:04 At the request of: JOSE GRISSOM MD Procedure: XR chest 2V PA AND LATERAL CHEST: CLINICAL HISTORY: cough COMPARISON: None FINDINGS: Unremarkable cardiomediastinal. Lungs clear. No effusion or pneumothorax XR/XR chest 2V IMPRESSION: NO ACUTE CARDIOPULMONARY ABNORMALITY. Impression dictated by: Brad Esteves M.D. 05/13/2025 9:04 PM Dictation Location: [place] [address] Electronically authenticated by: [id number] Y Date: 05/13/2025 21:04
--- NOTE | 2025-05-13 20:11 | CT_ITS ---
The [address] [address] Patient Name: BILLY GIBSON MRN: [id number] date: 1975 Sex: F Assigned Patient Location: ER Current Patient Location: .[facility] Accession/Order Number: [id number] Exam Date: 05/13/2025 20:23 Report Date: 05/13/2025 22:08 At the request of: JOSE GRISSOM MD Procedure: CT head/brain wo con CT BRAIN WITHOUT CONTRAST: CLINICAL HISTORY: headache COMPARISON: 08/12/2022 TECHNIQUE: Contiguous axial unenhanced images were obtained through the brain. This CT exam was performed using one or more following dose reduction techniques: Automated exposure control, adjustment of the mA and/or kV according to patient size, or use of iterative reconstruction technique. FINDINGS: There is no evidence of midline shift, intra or extra-axial fluid collection, hemorrhage or CT evidence of acute large vascular distribution stroke Visualized intraorbital contents appear unremarkable. [id number] ethmoid sinus disease. Sphenoid sinus air-fluid level of the right. Moderate right maxillary sinus air-fluid level. Small left maxillary sinus air-fluid level. Mastoids are clear. The surrounding soft tissues are normal. CT/CT head/brain wo con IMPRESSION: NO ACUTE INTRACRANIAL ABNORMALITY. [id number] PARANASAL SINUS AIR-FLUID LEVELS CAN BE SEEN WITH SETTING OF BACTERIAL SINUSITIS. PLEASE CORRELATE WITH EXAM FINDINGS. Impression dictated by: Brad Esteves M.D. 05/13/2025 10:08 PM Dictation Location: [place] [address] Electronically authenticated by: [id number] Y Date: 05/13/2025 22:08
[2025-05-13 20:27] LABS: SARS-CoV-2 Ag POSITIVE (NEGATIVE)
[2025-05-13 21:08] LABS: Glucose Urine UA NEGATIVE (NEGATIVE)
[2025-05-13] MEDS: 0.9 % SODIUM CHLORIDE 1,000 ML 999 ML IV (21:09)
[2025-05-13 21:21] LABS: Cast Seen? NONE SEEN #/LPF (NONE SEEN); Crystals Seen? None Seen #/HPF (None Seen); Urine Culture Indicated NO
[2025-05-13 21:30] LABS: Alanine Aminotransferase 50 U/L (14-59); Albumin Globulin Ratio 0.8; Albumin Level 3.5 g/dL (3.4-5.0); Alkaline Phosphatase 96 U/L (46-116); Anion Gap 11.4; Aspartate Amino Transferase 23 U/L (15-37); Blood Urea Nitrogen 17.0 mg/dL (7.0-18.0); Calcium 8.5 mg/dL (8.5-10.1); Carbon Dioxide 29.3 mmol/L (21.0-32.0); Chloride 104 mmol/L (98-107); Estimated GFR (African America >60 (>=60 mL/min/1.73m^2); Estimated GFR (Non-African Ame >60 (>=60 mL/min/1.73m^2); Globulin 4.5 g/dL; Glucose 88 mg/dL (74-106); Potassium 3.7 mmol/L (3.5-5.1); Sodium 141 mmol/L (136-145); Total Protein 8.0 g/dL (6.4-8.2)
[2025-05-13 21:33] LABS: Lactate/Lactic Acid 0.5 mmol/L (0.4-2.0)
--- NOTE | 2025-05-13 22:22 | PC.NURSE ---
i gave this patient verbal and written discharge orders along with 2 Rx and this patient voices yes to understanding these. at time of discharge this patient voices no concerns, needs and shows no signs of distress
== END 2025-05-13 22:21 | disposition home or self-care (01) ==
PROVIDERS: Emergency Provider Internal Medicine
DX: U07.1 COVID-19 (principal); J01.90 Acute sinusitis, unspecified; G47.30 Sleep apnea, unspecified; F17.200 Nicotine dependence, unspecified, uncomplicated; B96.89 Other specified bacterial agents as the cause of diseases classified elsewhere
CPT/HCPCS: 36415; 70450; 70486; 71046; 76376; 80053; 81001; 83605; 87804; 87811; 96365; 99285; J0696